=== PATIENT | male | born 1960 | race Caucasian/White ===

== ENCOUNTER → 2016-06-24 | Outpatient (CLI) | payer MEDICARE ==
[~2016-06-24] MED LIST: ALDACTONE 25MG25 MG NG; ASPIRIN 81MG TA81 MG PO; CELEXA40 MG PO; COREG 6.25MG6.25 MG PO; DIGOXIN0.25 MG PO; GABAPENTIN300 MG PO; LIPITOR20 MG PO; LISINOPRIL2.5 MG PO; PLAVIX 75MG TAB75 MG PO; PROTONIX20 MG PO; SOTALOL 80MG TA80 MG PO; TYLENOL W/CODEI1 TA2 PO; WARFARIN SODIUM4 MG PO; ZOFRAN ODT8 MG PO
== END ==
LOC: LAB 14:13
DX: Z79.01 Long term (current) use of anticoagulants (principal); Z95.2 Presence of prosthetic heart valve

== ENCOUNTER → 2016-09-15 | Outpatient (CLI) | payer MEDICARE | LOC: LAB 16:11 | DX: Z95.2 Presence of prosthetic heart valve (principal); Z79.01 Long term (current) use of anticoagulants; Z51.81 Encounter for therapeutic drug level monitoring ==

== ENCOUNTER 2016-11-12 16:39 | Emergency (ER) | payer MEDICARE ==
[~2016-11-12] VITALS: Ht 170.2 cm; Wt 65.8 kg
[2016-11-12] MEDS ORDERED: SUBOXONE 8 MG-21 FIL SL (16:44)
[2016-11-12] MEDS ORDERED: GABAPENTIN 600600 MG PO (16:45)
[2016-11-12 17:03] LABS: LYMPH # 1.7 K/mm3 (0.7-4.5); LYMPH % 23.3 % (10-50)
--- NOTE | 2016-11-12 17:04 | Emergency Room Report ---
See Addendum History of Present Illness Time Seen by [id number] Presenting Problem in Triage Pt arrived:Walked Presenting Problem:PT C/O CHEST PAINS EARLIER THIS AFTERNOON. ADVISES THEY WERE SHARP IN [place] AND WOULD COME AND GO. PT HAD HIS DEFIBRILLATOR REPLACED 2 WEEKS AGO. 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 N Clinical Suspician of Infection? N Mental Status: 1 - Regular (Normal Baseline) Sepsis Risk:Low Sepsis Risk Have you (or family members/close friends) recently traveled outside the [place]? N If Yes, where/when: Have you had exposure to infectious disease within the past month? N TB? Other? Specify: Patient states that he had an episode of moderate sharp type chest pain left center of chest, no radiation, and lightheadedness felt like he might pass out that one lasted about 5 minutes, associated with shortness of breath nausea and sweating. And while mowing the yard today an hour prior to arrival around 4 PM. He states she's also been having these pins and needles type feeling at the site of his pacemaker/defibrillator which was just replaced 2 weeks ago. States it feels like it is shocking him intermittently. Denies any chest pain currently. +history of artificial valve. Followed by Trever VALLECILLO at [facility]. She hasn't had a stress test or angiogram over a year ALLERGIES Coded Allergies: venlafaxine (NA-HALLUCINATIONS 10/26/15) Home Medications Reported Medications SOTALOL HCL (Sotalol) 80 MG PO BID Pantoprazole Sodium (Protonix 20MG TAB) 20 MG PO BID ASPIRIN (Aspirin) 81 MG PO DAILY DIGOXIN (Digox) 0.25 MG PO DAILY Spironolactone (Aldactone) 25 MG NG DAILY Carvedilol (Coreg 6.25MG) 6.25 MG PO DAILY CITALOPRAM HYDROBROMIDE (Citalopram HBr) 40 MG PO DAILY BUPRENORPHINE HCL/NALOXONE HCL (Suboxone 8 MG-2 MG Sl Film) 1 SL DAILY #28 Gabapentin (Gabapentin 600MG) 600 MG PO Q8 Warfarin Sodium (Warfarin 4MG) 4 MG PO DAILY History Medical History General CAD? Yes Angina: Yes [place]: Yes Hypertension? Yes Hyperlipidemia? Yes CHF? No DVT? No PE? No COPD? No Asthma? No Anemia? No GERD? No Gastric ulcers? No GI Bleed? No Hernia? Yes Thyroid Problems? No Hypothyroidism? No CVA? No Seizures? No Diabetes? No Renal Insuffiency? No End Stage Renal Disease? No UTI? No Stones? No BPH? No GB Disease: No Nephritic Syndrome? No Asplenia? No Hepatitis? No Sickle Cell Disease? No Arthritis? No Migraines? No MRSA? Yes HIV? No TB? No Anxiety? Yes Depression? Yes Cancer? No More? No Immunization Hx DT/Tetanus Unknown Surgical Hx Previous Surgery?Y PACEMAKER OPEN HEART SURGERY HEART VALVE SURGERY HERNIA SURGERY Family History Family Hx Diabetes Yes Hypertension Yes Cancer Yes Social History Smoking Hx Smoker: Current Every Day Smoker Tobacco: Yes Type Cigarettes Packs/day 1 1/2 - 2 Packs Alcohol Alcohol: No Review of Systems All Other Systems Reviewed and Negative Physical Exam Vital Signs Vital Signs Date Time Temp Pulse Resp B/P Pulse O2 O2 Flow FiO2 Ox Delivery Rate 11/12 1809 98.7 69 18 106/68 95 11/12 1710 98 11/12 1640 98.0 72 16 132/86 98 General Appearance: Nontoxic Head: Normocephalic, without obvious abnormality, atraumatic. Eyes: conjunctiva/corneas clear ENT: Mucous membranes moist. Neck: No jugular venous distention. Cardiac: regular rate and rhythm, positive artificial valve click Lungs: Clear to auscultation bilaterally Abdomen: Nontender, Nondistended, positive bowel sounds, no rebound : No CVA tenderness Extremities: no edema Musculoskeletal: No chest wall tenderness No Homans sign No calf tenderness No swelling in legs Skin: No rashes or lesions to exposed skin. Neurologic: Alert. No gross focal deficits Psychiatric: Normal affect (Dave VALLECILLO, Timo) General Appearance normal appearance Respiratory Status No: respiratory distress. Cardiovascular normal exam Neurologic alert Medical Decision Making LABS/Meds/Orders Pt receiving controlled substance in ED? No Comment cxr said likely normal per radiogist but possible infiltrate, clinically, wbc ok , diff just elevated monocytes, do not think pneumonia. 730pm call out to cardiology, they desire [facility] transfer Results/Orders Laboratory Tests 11/12/16 1645: B-Natriuretic Peptide 538 H 11/12/16 1645: Sodium 137, Potassium 3.7, Chloride 101, Carbon Dioxide 29, BUN 6 L, Creatinine 1.2, Estimated Creat Clear 63, Estimated GFR (MDRD) 62, Glucose 95, Calcium 8.8, Total Bilirubin 0.3, AST 17, ALT 14, Alkaline Phosphatase 68, Creatine Kinase 97 , CK-MB (CK-2) Rel Index 0.5, CK and CKMB Interp < 0.5, Troponin I 0.02, Total Protein 7.3, Albumin 3.7, Globulin 3.6 H, Albumin/Globulin Ratio 1.0 L, PT 33.7 H, INR 3.08 H, APTT 42.1 H, WBC 7.1, RBC 4.36 L, Hgb 13.6 L, Hct 41.8 L, MCV 96.0, RDW 13.7, Plt Count 252, MPV 8.0, Gran % 65.0, Gran # 4.6, Lymphocytes % 23.3, Monocytes % 10.0 H, Eosinophils % 1.2, Basophils % 0.5, Lymphocytes # 1.7, Monocytes # 0.7, Eosinophils # 0.1, Basophils # 0.0, PUBS MCHC 32.6, MCH 31.3 H, Digoxin 0.88 L Current Medication Orders Sig/Lily Start time Last Medication Dose Route Stop Time Status Admin Aspirin 324 MG ONCE ONE 11/12 1715 CAN PO 11/12 171 Nitroglycerin 0.4 MG [id number] PRN 11/12 1715 CAN SL 11/12 2305 Sodium Chloride 10 ML PRN PRN 11/12 1700 AC IV 11/13 1646 Orders Procedure Date/time Status PULSE OXIMETRY REQUEST 11/12 170 Active OXYGEN PER NURSE 11/12 170 Active SALES REPRESENTATIVE ELECTRIC SERVICE 11/12 170 Active BRAIN NATRIURETIC PEPTIDE 11/12 170 Complete DIGOXIN 11/12 165 Complete ELECTROCARDIOGRAM REQUEST 11/12 164 Active IV SALINE LOCK 11/12 164 Active PARTIAL THROMBOPLASTIN TIME 11/12 164 Complete PROTHROMBIN TIME 11/12 164 Complete CBC WITH AUTO DIFF 11/12 164 Complete CARDIAC ENZYMES 11/12 164 Complete CHEM 12 PROFILE 11/12 1645 Complete CM/EKG CM/pit hand Rhythm Normal Sinus Rhythm Rate 70 Ectopy No Comments right Bundle-branch block, normal axis nonspecific electrocardiogram Departure Departure Time of Disposition 1929 Disposition DC/XFER from ER to [facility] Clinical Impression Primary Impression: Chest pain Qualifiers: Chest pain type: unspecified Qualified Code: R07.9 - Chest pain, unspecified Secondary Impressions: Palpitation Condition STABLE Referrals GERMAINE HALEY APRN (Family) ED Critical Care Critical Care No at 1935
--- NOTE | 2016-11-12 17:04 | Emergency Room Report ---
See Addendum History of Present Illness Time Seen by [id number] Presenting Problem in Triage Pt arrived:Walked Presenting Problem:PT C/O CHEST PAINS EARLIER THIS AFTERNOON. ADVISES THEY WERE SHARP IN [place] AND WOULD COME AND GO. PT HAD HIS DEFIBRILLATOR REPLACED 2 WEEKS AGO. 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 N Clinical Suspician of Infection? N Mental Status: 1 - Regular (Normal Baseline) Sepsis Risk:Low Sepsis Risk Have you (or family members/close friends) recently traveled outside the [place]? N If Yes, where/when: Have you had exposure to infectious disease within the past month? N TB? Other? Specify: Patient states that he had an episode of moderate sharp type chest pain left center of chest, no radiation, and lightheadedness felt like he might pass out that one lasted about 5 minutes, associated with shortness of breath nausea and sweating. And while mowing the yard today an hour prior to arrival around 4 PM. He states she's also been having these pins and needles type feeling at the site of his pacemaker/defibrillator which was just replaced 2 weeks ago. States it feels like it is shocking him intermittently. Denies any chest pain currently. +history of artificial valve. Followed by Trever VALLECILLO at [facility]. She hasn't had a stress test or angiogram over a year ALLERGIES Coded Allergies: venlafaxine (NA-HALLUCINATIONS 10/26/15) Home Medications Reported Medications SOTALOL HCL (Sotalol) 80 MG PO BID Pantoprazole Sodium (Protonix 20MG TAB) 20 MG PO BID ASPIRIN (Aspirin) 81 MG PO DAILY DIGOXIN (Digox) 0.25 MG PO DAILY Spironolactone (Aldactone) 25 MG NG DAILY Carvedilol (Coreg 6.25MG) 6.25 MG PO DAILY CITALOPRAM HYDROBROMIDE (Citalopram HBr) 40 MG PO DAILY BUPRENORPHINE HCL/NALOXONE HCL (Suboxone 8 MG-2 MG Sl Film) 1 SL DAILY #28 Gabapentin (Gabapentin 600MG) 600 MG PO Q8 Warfarin Sodium (Warfarin 4MG) 4 MG PO DAILY History Medical History General CAD? Yes Angina: Yes [place]: Yes Hypertension? Yes Hyperlipidemia? Yes CHF? No DVT? No PE? No COPD? No Asthma? No Anemia? No GERD? No Gastric ulcers? No GI Bleed? No Hernia? Yes Thyroid Problems? No Hypothyroidism? No CVA? No Seizures? No Diabetes? No Renal Insuffiency? No End Stage Renal Disease? No UTI? No Stones? No BPH? No GB Disease: No Nephritic Syndrome? No Asplenia? No Hepatitis? No Sickle Cell Disease? No Arthritis? No Migraines? No MRSA? Yes HIV? No TB? No Anxiety? Yes Depression? Yes Cancer? No More? No Immunization Hx DT/Tetanus Unknown Surgical Hx Previous Surgery?Y PACEMAKER OPEN HEART SURGERY HEART VALVE SURGERY HERNIA SURGERY Family History Family Hx Diabetes Yes Hypertension Yes Cancer Yes Social History Smoking Hx Smoker: Current Every Day Smoker Tobacco: Yes Type Cigarettes Packs/day 1 1/2 - 2 Packs Alcohol Alcohol: No Review of Systems All Other Systems Reviewed and Negative Physical Exam Vital Signs Vital Signs Date Time Temp Pulse Resp B/P Pulse O2 O2 Flow FiO2 Ox Delivery Rate 11/12 1809 98.7 69 18 106/68 95 11/12 1710 98 11/12 1640 98.0 72 16 132/86 98 General Appearance: Nontoxic Head: Normocephalic, without obvious abnormality, atraumatic. Eyes: conjunctiva/corneas clear ENT: Mucous membranes moist. Neck: No jugular venous distention. Cardiac: regular rate and rhythm, positive artificial valve click Lungs: Clear to auscultation bilaterally Abdomen: Nontender, Nondistended, positive bowel sounds, no rebound : No CVA tenderness Extremities: no edema Musculoskeletal: No chest wall tenderness No Homans sign No calf tenderness No swelling in legs Skin: No rashes or lesions to exposed skin. Neurologic: Alert. No gross focal deficits Psychiatric: Normal affect (Dave VALLECILLO, Timo) General Appearance normal appearance Respiratory Status No: respiratory distress. Cardiovascular normal exam Neurologic alert Medical Decision Making LABS/Meds/Orders Pt receiving controlled substance in ED? No Comment cxr said likely normal per radiogist but possible infiltrate, clinically, wbc ok , diff just elevated monocytes, do not think pneumonia. 730pm call out to cardiology, they desire [facility] transfer Results/Orders Laboratory Tests 11/12/16 1645: B-Natriuretic Peptide 538 H 11/12/16 1645: Sodium 137, Potassium 3.7, Chloride 101, Carbon Dioxide 29, BUN 6 L, Creatinine 1.2, Estimated Creat Clear 63, Estimated GFR (MDRD) 62, Glucose 95, Calcium 8.8, Total Bilirubin 0.3, AST 17, ALT 14, Alkaline Phosphatase 68, Creatine Kinase 97 , CK-MB (CK-2) Rel Index 0.5, CK and CKMB Interp < 0.5, Troponin I 0.02, Total Protein 7.3, Albumin 3.7, Globulin 3.6 H, Albumin/Globulin Ratio 1.0 L, PT 33.7 H, INR 3.08 H, APTT 42.1 H, WBC 7.1, RBC 4.36 L, Hgb 13.6 L, Hct 41.8 L, MCV 96.0, RDW 13.7, Plt Count 252, MPV 8.0, Gran % 65.0, Gran # 4.6, Lymphocytes % 23.3, Monocytes % 10.0 H, Eosinophils % 1.2, Basophils % 0.5, Lymphocytes # 1.7, Monocytes # 0.7, Eosinophils # 0.1, Basophils # 0.0, PUBS MCHC 32.6, MCH 31.3 H, Digoxin 0.88 L Current Medication Orders Sig/Lily Start time Last Medication Dose Route Stop Time Status Admin Aspirin 324 MG ONCE ONE 11/12 1715 CAN PO 11/12 171 Nitroglycerin 0.4 MG [id number] PRN 11/12 1715 CAN SL 11/12 2305 Sodium Chloride 10 ML PRN PRN 11/12 1700 AC IV 11/13 1646 Orders Procedure Date/time Status PULSE OXIMETRY REQUEST 11/12 170 Active OXYGEN PER NURSE 11/12 170 Active TOLL TICKET CLERK 11/12 170 Active BRAIN NATRIURETIC PEPTIDE 11/12 170 Complete DIGOXIN 11/12 165 Complete ELECTROCARDIOGRAM REQUEST 11/12 164 Active IV SALINE LOCK 11/12 164 Active PARTIAL THROMBOPLASTIN TIME 11/12 164 Complete PROTHROMBIN TIME 11/12 164 Complete CBC WITH AUTO DIFF 11/12 164 Complete CARDIAC ENZYMES 11/12 164 Complete CHEM 12 PROFILE 11/12 1645 Complete CM/EKG CM/account services analyst Rhythm Normal Sinus Rhythm Rate 70 Ectopy No Comments right Bundle-branch block, normal axis nonspecific electrocardiogram Departure Departure Time of Disposition 1929 Disposition DC/XFER from ER to [facility] Clinical Impression Primary Impression: Chest pain Qualifiers: Chest pain type: unspecified Qualified Code: R07.9 - Chest pain, unspecified Secondary Impressions: Palpitation Condition STABLE Referrals GERMAINE HALEY APRN (Family) ED Critical Care Critical Care No at 1935
[2016-11-12 17:25] LABS: BUN 6 mg/dL (7-18)
[2016-11-12 17:30] LABS: GFR (ESTIMATED) 62 ML/MIN (>60)
[2016-11-12 17:47] LABS: HEMOGLOBIN 13.6 g/dL (14.1-18.0)
--- NOTE | 2016-11-12 19:11 | RADIOLOGY REPORT PS360 ---
CHEST(2 VIEWS-NOT PORTABLE) COMPARISON: None HISTORY: Pain TECHNIQUE: PA and lateral chest FINDINGS: The lung peñaloza are well expanded. There is a subtle ill-defined opacity in right infrahilar region. This likely is a confluence of overlying vascular shadows and rib shadows but a minimal developing pneumonic infiltrate cannot be entirely excluded. The remainder of the right lung field is clear and the left lung field is clear. There is mild generalized cardio megaly. There is a prosthetic aortic valve noted along with sternal wire sutures. There is a left-sided cardiac pacemaker with dual chamber electrodes both in good position. IMPRESSION: Questionable right perihilar and right lower lobe bronchopneumonia versus confluence of vascular and rib shadows
[2016-11-12 20:45] VITALS: BP 131/87
--- OUTSIDE RECORDS SUMMARY | 2016-11-20 15:40 | External Medical Summary Rpt ---
Author Author [facility] Organization [facility] Address Unknown Phone Unavailable Care Team Providers Care Meeting Coordinator Name Role Phone AARON FRENCH (REF) PCP [phone] Encounter [facility] [id number] Date(s): 10/25/13 - 10/24/15 [facility] [address] [place] [address]- [phone] Discharge Disposition: OP Self Care or Home Reason for Visit TRANSPLANT Vital Signs No data available for this section Problem List No data available for this section Allergies, Adverse Reactions, Alerts Substance Reaction Severity Status Effexor hallucinate Moderate Active Medications No data available for this section Results No data available for this section Immunizations No data available for this section Procedures No data available for this section Social History No data available for this section Assessment and Plan No data available for this section Hospital Discharge Instructions No data available for this section
--- OUTSIDE RECORDS SUMMARY | 2016-11-20 15:40 | External Medical Summary Rpt ---
Author Author [facility] Organization [facility] Address Unknown Phone Unavailable Care Team Providers Care Computer Systems Consultant Name Role Phone AARON FRENCH (REF) PCP [phone] Encounter [facility] [id number] Date(s): 10/25/13 - 10/24/15 [facility] [address] [place] [address]- Discharge Disposition: OP Self Care or Home [...]
--- OUTSIDE RECORDS SUMMARY | 2016-11-20 15:45 | External Medical Summary Rpt | CCD ---
Author Author , ARTIS Organization ARTIS Address Unknown Phone [email or web address] Care Team Providers Care Ultra Sound Technician Name Role Phone FABIOLA MAR, FABIOLA MAR Unavailable Unavailable ALLRAN JR JOSE ANTONIO, ALLRAN Unavailable Unavailable JR JOSE ANTONIO JOSLYN SANCHEZ MD, PSC, Unavailable Unavailable JOSLYN SANCHEZ MD, PSC [facility] Unavailable Unavailable [facility], [facility] Unavailable Unavailable [facility], [facility] AND Unavailable Unavailable VASCULAR I, [facility] & Unavailable Unavailable CRITICAL, [facility] BESSON, BESSON Unavailable Unavailable BESSON DAT, BESSON Unavailable Unavailable DAT HORNE ALL, HORNE ALL Unavailable Unavailable [facility] Un[facility], [facility] BUX ANJ, BUX ANJ Unavailable Unavailable SHAYLA ALA, SHAYLA Unavailable Unavailable ALA [facility], Unavailable Unavailable [facility] Unavailable Unavailable PHYS PSC, [facility] Unavailable Unavailable [facility], [facility] MAYTE KATHYA, MAYTE KATHYA Unavailable Unavailable [facility], Unavailable Unavailable [facility] PALENCIA SHEA, PALENCIA SHEA Unavailable Unavailable MARY PAT, MARY PAT Unavailable Unavailable DUFF DULCE, DUFF DULCE Unavailable Unavailable EAVES EDEL, EAVES EDEL Unavailable Unavailable GOLDSTEIN THO, Unavailable Unavailable [facility] THO DIXON MAR, DIXON MAR Unavailable Unavailable JR XIMENA BANKSZ, Unavailable Unavailable JR DARREN ELZ HUSAM RHO, HUSAM Unavailable Unavailable RHO HAAKE BRA, HAAKE BRA Unavailable Unavailable HAAKE BRA, HAAKE BRA Unavailable Unavailable SAAD HERNANDEZ, Unavailable Unavailable SAAD JULIEN, Unavailable Unavailable OSMANI JULIEN [facility] Unavailable Unavailable INC, [facility] Unavailable Unavailable HOSPITAL P, [facility] WOMACK KLEVER, WOMACK Unavailable Unavailable KLEVER HESSELSON AAR, Unavailable Unavailable HESSELSON AAR [facility], Unavailable Unavailable [facility] SABAS TRA, HOLLAN Unavailable Unavailable [facility] FABIANA, Unavailable Unavailable [facility] Unavailable Unavailable SERVICES,, [facility], SUDHA NAN, SUDHA Unavailable Unavailable NAN BERTHA SYE, BERTHA Unavailable Unavailable SYE HERRERA SHE, HERRERA SHE Unavailable Unavailable DAVENPORT FELIPE, DAVENPORT Unavailable Unavailable FELIPE [facility] Unavailable Unavailable [facility], [facility] Unavailable Unavailable AT [facility], [facility] Unavailable Unavailable SPECIALISTS,, [facility], [facility] Unavailable Unavailable DISEASE, [facility] MANOLO NUSRAT, MANOLO Unavailable Unavailable NUSRAT MANOLO NUSRAT, MANOLO Unavailable Unavailable NUSRAT [facility] Unavailable Unavailable [facility]OC[facility]AT, [facility], Unavailable Unavailable [facility] Unavailable Unavailable [facility], [facility] MIEDLER YIN, MIEDLER Unavailable Unavailable YIN MELI NATI, Unavailable Unavailable MELI SILVERIO, ROJAS Unavailable Unavailable [facility] Unavailable Unavailable URGENT [facility]RE[facility], [facility] Unavailable Unavailable EMS, [facility] IVETT TOD, IVETT TOD Unavailable Unavailable RICE N., RICE N. Unavailable Unavailable PLUNKETT IV HEN, Unavailable Unavailable PLUNK[facility] IV HEN SCALF KLEVER, SCALF KLEVER Unavailable Unavailable AVERY ASHTYN, AVERY Unavailable Unavailable ASHTYN CALLES J, CALLES J Unavailable Unavailable CALLES III JAM, Unavailable Unavailable CALLES III JAM OCHOA, OCHOA Unavailable Unavailable OCHOA MAY, OCHOA Unavailable Unavailable MAY SHULTZ ADA, SHULTZ ADA Unavailable Unavailable SPANIER MAR, SPANIER Unavailable Unavailable MAR BRIAN MAR, Unavailable Unavailable BRIAN PAULETTE JULIEN, Unavailable Unavailable DOMENIC MEDE[facility], Unavailable Unavailable [facility], [facility] Unavailable Unavailable Medicine BALBIR IBARRA, Unavailable Unavailable BALBIR AGOSTO CELINA, TRINY Unavailable Unavailable CELINA Purpose Continuity of Care Document - 03-16-2013 through 2016 Problems Code Diagnosis DOS Provider Status I509 HEART 02-01-2016 [place] [facility] UNSPECIFIED SPECIALISTS , K4091 UNILAT 10-26-2015 [facility] HERNIA W/O INC OBST/GANGRE NE RECUR 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 [facility] CURRENT USE [facility] OF INC ANTICOAGULA NTS K4021 BILAT 10-10-2015 [facility] INGUINAL PHYSICIANS HERNIA W/O GROUP OBST OR GANGRENE RECUR K469 UNS 10-10-2015 [facility] ABDOMINAL [facility] HERNIA W/O HOSPITAL P OBSTRUCTION OR GANGRENE R46901 ENCOUNTER 10-10-2015 [facility] FOR OTHER [facility] PREPROCEDUR HOSPITAL P AL EXAMINATION Z5181 ENCOUNTER 10-10-2015 [facility] FOR [facility] THERAPEUTIC HOSPITAL P DRUG LEVEL MONITORING Z952 PRESENCE OF 10-10-2015 [facility] PROSTHETIC [facility] HEART INC VALVE R312 OTHER 10-01-2015 [facility] HEMATURIA [facility] R319 HEMATURIA 10-01-2015 [facility] [place] UNSPECIFIED RADIOLOGY G2581 RESTLESS 09-06-2015 [facility] LEGS [facility] SYNDROME URGENT TREAT L247 IRRITANT 08-21-2015 [facility] CONTACT [facility] DERMATITIS URGENT D/T PLANTS TREAT NO FOOD R3915 URGENCY OF 08-21-2015 [facility] URINATION [facility] URGENT TREAT I5022 CHRONIC 08-02-2015 [facility] 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 , 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 , 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 SPECIALISTS , I472 VENTRICULAR 05-07-2015 [facility] TACHYCARDIA SPECIALISTS , 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 05-04-2015 [facility] 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 I340 NONRHEUMATI 04-13-2015 [facility] C [facility]AL [facility] VALVE INC INSUFFICIEN CY B001 HERPESVIRAL 02-27-2015 [facility] VESICULAR [facility] DERMATITIS URGENT TREAT K5792 DIVERTICULI 02-27-2015 [facility] PART [facility] UNS W/O URGENT PERF/ABSC TREAT W/O BLEED R1032 LEFT LOWER 02-27-2015 [facility] QUADRANT [facility] PAIN URGENT TREAT R110 NAUSEA 02-27-2015 [facility] URGENT TREAT R42 DIZZINESS 02-27-2015 [facility] GIDDINESS URGENT TREAT I050 RHEUMATIC 01-09-2015 [facility]AL [facility] STENOSIS INC I495 SICK SINUS 12-01-2014 [place] SYNDROME [facility] SPECIALISTS , R002 PALPITATION 12-01-2014 [facility] S [facility] , 07813 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 MILNERX, LUMBAR/LUMB , PSC OSACRAL INTERVERTEB RAL DISC 7244 THORACIC/CHERRY 10-31-2014 CAROLANN LUND MD, PSC NEURITIS/RA DICULITIS UNSPEC 4240 MITRAL 10-18-2014 [facility] VALVE [facility] DISORDERS INC V433 HEART VALVE 10-18-2014 [facility] REPLACED [facility] BY OTHER INC MEANS V5861 LONG-TERM 10-18-2014 [facility] (CURRENT) [facility] USE OF INC ANTICOAGULA NTS 45769 PRIMARY 07-15-2014 [facility] LOCALIZED [facility] OSTEOARTHRO INC SIS FOREARM 19521 PAIN IN 07-15-2014 [facility] 15618 PAIN IN 07-15-2014 [facility], [facility]ICAL ANKLE AND IMAGING ASS FOOT 7242 LUMBAGO 07-15-2014 [facility] 7295 PAIN IN 07-15-2014 [facility] TISSUES OF IMAGING ASS LIMB 32547 UNSPECIFIED 07-15-2014 [facility] SITE OF [facility] ANKLE INC SPRAIN AND STRAIN 4271 PAROXYSMAL 04-19-2014 [facility] P TACHYCARDIA 2724 OTHER AND 04-11-2014 [facility] UNSPECIFIED [facility] HYPERLIPIDE ADARSH 4011 ESSENTIAL 04-11-2014 [facility] HYPERTENSIO HEALTH N, [facility] 4019 UNSPECIFIED 04-11-2014 [facility] ESSENTIAL [facility] HYPERTENSIO HOSP N 25262 CORONARY 04-11-2014 [facility] [place] [facility]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 4254 OTHER 04-11-2014 [facility] PRIMARY [facility] CARDIOMYOPA HOSP OTIS 4280 CONGESTIVE 04-11-2014 [facility] FAILURE SPECIALISTS UNSPECIFIED , 59881 CHRONIC 04-11-2014 [facility] SYSTOLIC [facility] FAILURE V5866 LONG-TERM 04-11-2014 [facility] USE OF [facility] ASPIRIN [facility]OSP V5869 LONG-TERM 04-11-2014 [facility] (CURRENT) [facility] USE OF HOSP OTHER MEDICATIONS 4148 OTHER SPEC 03-08-2014 [facility] FORMS [facility] CHRONIC INC ISCHEMIC HEART DISEASE 4242 TRICUSPID 02-20-2014 [facility] VALVE Medicine DISORDERS SPEC NONRHEUMATI C 412 OLD 11-14-2013 [place] MYOCARDIAL [facility] INFARCTION SPECIALISTS , V1749 FAMILY 11-14-2013 [place] HISTORY OF HEART OTHER SPECIALISTS CARDIOVASCU , LAR DISEASES 4010 ESSENTIAL 11-01-2013 [facility] HYPERTENSIO [facility] N, INC MALIGNANT 33123 OTHER 11-01-2013 [facility]AISE AND [facility] FATIGUE INC 6959 UNSPECIFIED 08-23-2013 [facility] ERYTHEMATOU AT [facility] S CONDITION 5110 PLEURISY 08-19-2013 [facility] WITHOUT RADIOLOGY MENTION ASSOC EFFUS/CURRE NT TB 6822 CELLULITIS 08-19-2013 [facility] AND ABSCESS EMERGENCY OF TRUNK PHYS PSC V4502 AUTOMATIC 08-19-2013 [facility] IMPLANTABLE RADIOLOGY CARDIAC ASSOC DEFIBRILLAT OR SITU V5332 FITTING&ADJ 08-19-2013 [facility] AUTO RADIOLOGY IMPLANTABLE ASSOC CARD DEFIBRILLAT OR 4279 UNSPECIFIED 08-16-2013 [facility] CARDIAC RADIOLOGY DYSRHYTHMIA ASSOC V5331 FITTING AND 08-16-2013 [facility] ADJUSTMENT RADIOLOGY OF CARDIAC ASSOC PACEMAKER 38488 OTHER 08-15-2013 [place] SPECIFIED CARDIOLOGY CARDIAC AT [facility] DYSRHYTHMIA S V5881 FITTING AND 08-14-2013 [facility] ADJUSTMENT RADIOLOGY OF ASSOC VASCULAR CATHETER 39449 DIAB W/O 08-13-2013 HOSPITAL COMP TYPE MEDICINE II/UNS NOT SERVICES, STATED UNCNTRL 46293 ACUT TX 08-11-2013 HAAKE BRA INFEROLAT WALL INIT EPIS CARE 57565 COR 08-11-2013 [facility] ATHEROSLERO PULMONARY & UNSPEC CRITICAL TYPE VESSEL [place]/ALEK T 7804 DIZZINESS 08-11-2013 [facility] [place] AND RADI[facility] GIDDINESS 62318 NAUSEA 08-02-2013 [facility] ALONE HEART AND VASCULAR I 4439 UNSPECIFIED 07-12-2013 [facility] PERIPHERAL CARDIOTHORA VASCULAR CIC SURGI DISEASE 92018 ABNORMAL 06-27-2013 [facility] COAGULATION [facility] PROFILE INC 02545 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 65337 ACUTE 05-16-2013 [facility] SYSTOLIC HEART AND HEART VASCULAR I FAILURE 4589 UNSPECIFIED 05-16-2013 [facility] HE[facility] AND HYPOTENSION VASCULAR I 49882 HTN CKD UNS 04-26-2013 [facility] W/CKD [facility] STAGE I HOSP THRU STAGE IV/UNS 77985 UNSPECIFIED 04-26-2013 [facility] SYSTOLIC [facility] HEART [facility] FAILURE 5859 CHRONIC 04-26-2013 [facility] KIDNEY [facility] DISEASE HOSP UNSPECIFIED V5863 LONG-TERM 04-26-2013 [facility] USE OF [facility] ANTIPLATELE HOSP T/ANTITHROM BOTIC 66884 LOSS OF 04-25-2013 [facility] SILVERIO WEIGHT 43724 OTH COMPS 04-25-2013 [facility] SILVERIO DUE OTH CARD DEVICE IMPLANT&GRA FT V0382 NEED PROPH 04-25-2013 [facility] SILVERIO VACCINATION AGAINST STREP PNEUMONE V0481 NEED 04-25-2013 [facility] SILVERIO PROPHYLACTI C VACCINATION &INOCULATIO N FLU 5119 UNSPECIFIED 04-18-2013 [facility] PLEURAL RADIOLOGY EFFUSION ASSOC V5874 AFTERCARE 04-18-2013 [facility] FOLLOW RADIOLOGY SURGERY ASSOC RESPIRATORY SYSTEM NEC 5180 PULMONARY 04-17-2013 [facility] COLLAPSE RADIOLOGY ASSOC V4581 POSTSURGICA 04-17-2013 [facility] L RADIOLOGY AORTOCORONA ASSOC RY BYPASS STATUS 01178 LEUKOCYTOSI 04-14-2013 [facility] S INFECTIOUS UNSPECIFIED DISEASE 72092 ACUT 04-14-2013 [facility] MYOCARD INFECTIOUS INFARCT UNS DISEASE SITE EPIS CARE UNS 4111 INTERMEDIAT 04-14-2013 [facility] E CORONARY HEART SYNDROME SPECIALISTS , 84310 ACUTE 04-14-2013 [facility] RESPIRATORY INFECTIOUS FAILURE DISEASE 5849 ACUTE 04-14-2013 [place] INFECTIOUS FAILURE DISEASE UNSPECIFIED 83630 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 5183 PULMONARY 04-13-2013 [facility] EOSINOPHILI RADIOLOGY A ASSOC 09160 OTHER 04-12-2013 [facility] DISEASES OF RADIOLOGY LUNG NOT ASSOC ELSEWHERE CLASSIFIED V5882 ENCOUNTER 04-12-2013 [facility] FITTING&ADJ RADIOLOGY ASSOC NON-VASCULA R CATHETER NEC 4210 ACUTE AND 04-09-2013 [place] SUBACUTE INFECTIOUS BACTERIAL DISEASE ENDOCARDITI S 03815 FEVER 04-09-2013 [facility] UNSPECIFIED INFECTIOUS DISEASE V5873 AFTERCARE 04-09-2013 [facility] FOLLOWING RADIOLOGY SURGERY ASSOC CIRC SYSTEM NEC V4589 OTHER 04-08-2013 [facility] POSTSURGICA RADIOLOGY L STATUS ASSOC OTHER 486 PNEUMONIA, 04-07-2013 [facility] ORGANISM RADIOLOGY UNSPECIFIED ASSOC 79903 ENDOCARDITI 04-06-2013 [facility] S VALVE RADIOLOGY UNSPECIFIED ASSOC UNSPECIFIED CAUSE 37016 OTHER 04-04-2013 [facility] NONSPECIFIC RADIOLOGY ABNORMAL ASSOC FINDING OF LUNG FIELD 4149 UNSPECIFIED 04-02-2013 [facility] CHRONIC CARDIOTHORA ISCHEMIC CIC SURGI HEART DISEASE 20117 HEMORRHAGE 04-02-2013 [facility] COMPLICATIN CARDIOTHORA G A CIC SURGI PROCEDURE NEC 0389 UNSPECIFIED 03-31-2013 [facility] SEPTICEMIA [facility] 83201 METABOLIC 03-31-2013 [facility] ENCEPHALOPA [facility] THY HOSP 09947 ACUT TX 03-31-2013 [facility] ANTEROLAT PULMONARY & WALL EPIS CRITICAL CARE UNS 34156 ACUT 03-31-2013 [facility] MYOCARD [facility] INFARCT OTH HOSP INF WALL INIT EPIS CARE 95241 ACUTE 03-31-2013 [facility] RESPIRATORY [facility] FAILURE HOSP [facility] TRAUMA & SURGERY 41186 UNSPECIFIED 03-31-2013 [facility] SHOCK PULMONARY & CRITICAL 514 PULMONARY 03-30-2013 [facility] HYPOSTASIS 35301 ING HERNIA 03-28-2013 [place] [facility] OBSTRUCTION /GANGREN BILAT V7283 OTHER 03-28-2013 [facility] SPECIFIED [facility] PRE-OPERATI HOSPITAL VE EXAMINATION 4293 CARDIOMEGAL 03-21-2013 [facility] 47827 ING NERISSA 03-21-2013 [facility], 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 [facility] CO OBST/GANGRE HOS N UNILAT/UNSP EC 7245 UNSPECIFIED 03-21-2013 [facility], BACKACHE [facility]RILL [facility] [place] [facility] 34909 OTHER 03-16-2013 [facility] SILVERIO CHRONIC PAIN Medications Na ND Rx Da Fi Fi Am Da Di Ph RX Ph St me C No te ll ll ou ys ag ar # ys at rm s nt no ma ic us Or Da si cy ia de te s n re d SO 60 01 02 60 30 00 CA Ac TA 50 -2 -1 .0 00 RL ti LO 50 0- 7- 00 00 IS ve L 08 20 20 76 LE 80 00 17 [address] MG UG S TA BL ET DI 49 01 02 30 30 00 CA Ac GO 88 -1 -1 .0 00 RL ti XI 40 6- 0- 00 00 IS ve N 49 20 20 76 LE 25 40 17 [address] MC UG G S TA BL ET EN 00 01 02 60 30 00 CA Ac TR 07 -0 -0 .0 00 RL ti ES 80 6- 3- 00 00 IS ve TO 65 20 20 76 LE 92 17 17 [address] UG MG S -2 6 MG TA BL ET SP 53 01 02 30 30 00 CA Ac IR 74 -0 -0 .0 00 RL ti ON 60 6- 3- 00 00 IS ve OL 51 20 20 76 LE AC 11 17 [address] NE UG S 25 MG TA BL ET PA 65 01 02 60 30 00 CA Ac NT 86 -0 -0 .0 00 RL ti OP 20 6- 3- 00 00 IS ve RA 55 20 20 76 LE ZO 99 17 [address] UG SO S D DR 20 MG TA B GA 68 12 01 12 30 00 CA Ac BA 46 -1 -1 0. 00 RL ti PE 20 5- 3- 00 00 IS ve NT 12 20 20 0 76 LE IN 60 16 [address] 60 UG 0 S MG TA BL ET Immunization Name Date Rout CVX Reac Dose Comm Prov Is Faci e tion ent ider Refu lity Give sed n IIV3 03- 141 JOELLE No JOELLE 7-20 NZO NZO VACC 14 NUSRAT INE SPLI T VIRU NUSRAT S 0.5 ML DOSA GE IM USE PPSV 03- 33 JOELLE No JOELLE 23 7-20 NZO NZO VACC 14 NUSRAT INE 2 YRS OR NUSRAT OLDE R FOR SUBQ /IM USE Results Labs Lab Lab Date Result Refere Interp Status Commen Order Detail nces retati t Range on Troponin I SerPl-mCnc (11-13-2016 05:40) Troponi 0.013 <=0.039 complet n I 017 ng/mL ed SerPl-m 05:40 Cnc Prothrombin time (11-13-2016 05:40) Comment: Therapeutic Ranges for INR:2.0-3.0 (PT 20-30) Comment: 2.5-3.5 (PT 25-34) INR PPP 1.86 complet 017 ed 05:40 Prothro 20.7 9.6-11. complet mbin 017 Seconds 5 ed time 05:40 Comp Metab 1998 Pnl SerPl (11-13-2016 05:40) Comment: National Kidney Foundation Guidelines Comment: Comment: Stage Description GFR Comment: 1 Normal or High 90+ Comment: 2 Mild decrease 60-89 Comment: 3 Moderate decrease 30-59 Comment: 4 Severe decrease 15-29 Comment: 5 Kidney failure <15 Anion 3.0 3.0-11. complet Gap3 017 mmol/L 0 ed SerPl-s 05:40 Cnc BUN/Cre 8.8 7.0-25. complet at 017 0 ed SerPl 05:40 Albumin 1.2 1.5-2.5 complet /Glob 017 g/dL ed SerPl 05:40 Globuli 3.0 complet n Ur 017 gm/dL ed Elph-mC 05:40 nc GFR/BSA 100 >60 complet .pred 017 mL/min/ ed SerPl 05:40 1.73 MDRD-Ar VRat Bilirub 0.2 0.3-1.2 complet 017 mg/dL ed SerPl-m 05:40 Cnc ALP 62 U/L 25-100 complet SerPl-c 017 ed Cnc 05:40 AST 18 U/L 0-33 complet SerPl-c 017 ed Cnc 05:40 ALT 11 U/L 7-40 complet SerPl w 017 ed 05:40 P-5'-P- cCnc Albumin 3.60 3.20-4. complet 017 g/dL 80 ed SerPl-m 05:40 Cnc Prot 6.6 5.7-8.2 complet SerPl-m 017 g/dL ed Cnc 05:40 Calcium 9.0 8.7-10. complet 017 mg/dL 4 ed XXX-sCn 05:40 c CO2 31.0 20.0-31 complet SerPl-s 017 mmol/L .0 ed Cnc 05:40 Chlorid 104 99-109 complet e 017 mmol/L ed SerPl-s 05:40 Cnc Potassi 3.7 3.5-5.5 complet um 017 mmol/L ed Bld-sCn 05:40 c Sodium 138 132-146 complet Bld-sCn 017 mmol/L ed c 05:40 Creat 0.80 0.60-1. complet Bld-mCn 017 mg/dL 30 ed c 05:40 BUN 11-13-2 7 mg/dL 9-23 complet Bld-mCn 017 ed c 05:40 Glucose 11-13- 109 70-100 complet 017 mg/dL ed Bld-mCn 05:40 c CBC W Diff pnl,unspecified Bld (11-13-2016 05:40) Imm 05-2 0.02 0.00-0. complet Granulo 017 10*3/mm 03 ed cytes # 05:40 3 Bld Basophi 10-05-2 0.01 0.00-0. complet ls # 017 10*3/mm 20 ed Bld 05:40 3 Auto Eosinop 10-05-2 0.07 0.00-0. complet hil # 017 10*3/mm 30 ed Bld 05:40 3 Auto Monocyt 10-05-2 0.81 0.00-1. complet es # 017 10*3/mm 00 ed Bld 05:40 3 Auto Lymphoc 10-05-2 1.47 0.60-4. complet ytes # 017 10*3/mm 80 ed Bld 05:40 3 Auto Neutrop 10-05-2 3.29 1.50-8. complet hils # 017 10*3/mm 30 ed Bld 05:40 3 Auto Imm 10-05-2 0.4 % 0.0-0.6 complet Granulo 017 ed cytes/l 05:40 euk NFr Bld Basophi 10-05-2 0.2 % 0.0-1.0 complet ls/leuk 017 ed NFr 05:40 Bld Auto Eosinop 10-05-2 1.2 % 0.0-3.0 complet hil/daniel 017 ed k NFr 05:40 Bld Auto Monocyt 10-05-2 14.3 % 0.0-12. complet es/leuk 017 0 ed NFr 05:40 Bld Auto Lymphoc 10-05-2 25.9 % 24.0-44 complet ytes/le 017 .0 ed uk NFr 05:40 Bld Auto Neutrop 1005-2 58.0 % 41.0-71 complet hils/le 017 .0 ed uk NFr 05:40 Bld Auto Platele 10-05-2 233 150-450 complet t # Bld 017 10*3/mm ed Auto 05:40 3 PMV Bld 1005-2 10.0 fL 6.0-12. complet Auto 017 0 ed 05:40 RDW RBC 10-05-2 47.2 fl 37.0-54 complet Auto 017 .0 ed 05:40 RDW RBC 10-05-2 13.7 % 11.3-14 complet 017 .5 ed Auto-Rt 05:40 o MCHC 10-05-2 33.1 32.0-36 complet RBC 017 g/dL .0 ed Auto-mC 05:40 nc MCH RBC 10-05-2 30.9 pg 27.0-31 complet Qn 017 .0 ed Auto 05:40 MCV RBC 10-05-2 93.3 fL 80.0-99 complet Auto 017 .0 ed 05:40 Hct VFr 10-05-2 40.2 % 38.9-50 complet Bld 017 .9 ed Auto 05:40 Hgb 10-05-2 13.3 13.1-17 complet Bld-mCn 017 g/dL .5 ed c 05:40 RBC # 10-05-2 4.31 4.20-5. complet Bld 017 10*6/mm 76 ed Auto 05:40 3 WBC 10-05-2 5.67 3.50-10 complet nRBC 017 10*3/mm .80 ed cor # 05:40 3 Bld PT BldC (11-07-2016 11:42) Comment: Meter: [id number] Diesel Engineer: [id number] JAMIE SIMS INR PPP 3.6 0.91-1. complet 017 09 ed 11:42 Prothro 42.8 10.0-13 complet mbin 017 seconds .8 ed time 11:42 Hgb A1c Bld (10-29-2016 13:06) Comment: The [place] [employer] recommends maintenance of Hemoglobin A1C at 7.0% or lower. Goals for Hemoglobin A1C reduction may need to be modified if hypoglycemia is a problem. Hgb A1c 5.30 % 4.80-5. complet MFr 017 60 ed Bld 13:06 aPTT PPP (10-29-2016 13:06) Comment: PTT = The equivalent PTT values for the therapeutic range of heparin levels at 0.3 to 0.5 U/ml are 45 to 60 seconds. aPTT 34.7 24.0-31 complet PPP 017 seconds .0 ed 13:06 Prothrombin time (10-29-2016 13:06) Comment: Therapeutic Ranges for INR:2.0-3.0 (PT 20-30) Comment: 2.5-3.5 (PT 25-34) INR PPP 1.78 complet 017 ed 13:06 Prothro 19.7 9.6-11. complet mbin 017 Seconds 5 ed time 13:06 Bas Metab 2000 Pnl SerPl (10-29-2016 12:58) Comment: National Kidney Foundation Guidelines Comment: Comment: Stage Description GFR Comment: 1 Normal or High 90+ Comment: 2 Mild decrease 60-89 Comment: 3 Moderate decrease 30-59 Comment: 4 Severe decrease 15-29 Comment: 5 Kidney failure <15 Anion 2.0 3.0-11. complet Gap3 017 mmol/L 0 ed SerPl-s 12:58 Cnc BUN/Cre 8.8 7.0-25. complet at 017 0 ed SerPl 12:58 GFR/BSA 100 >60 complet .pred 017 mL/min/ ed SerPl 12:58 1.73 MDRD-Ar VRat Calcium 9.3 8.7-10. complet 017 mg/dL 4 ed XXX-sCn 12:58 c CO2 28.0 20.0-31 complet SerPl-s 017 mmol/L .0 ed Cnc 12:58 Chlorid 108 99-109 complet e 017 mmol/L ed SerPl-s 12:58 Cnc Potassi 4.2 3.5-5.5 complet um 017 mmol/L ed Bld-sCn 12:58 c Sodium 138 132-146 complet Bld-sCn 017 mmol/L ed c 12:58 Creat 0.80 0.60-1. complet Bld-mCn 017 mg/dL 30 ed c 12:58 BUN 7 mg/dL 9-23 complet Bld-mCn 017 ed c 12:58 Glucose 92 70-100 complet 017 mg/dL ed Bld-mCn 12:58 c Mg Ionized SerPl-mCnc (10-29-2016 12:58) Magnesi 2.1 1.3-2.7 complet um 017 mg/dL ed SerPl-m 12:58 Cnc CBC (hemogram) Bld Auto (10-29-2016 12:58) PMV Bld 9.7 fL 6.0-12. complet Auto 017 0 ed 12:58 RDW RBC 09-20-2 48.1 fl 37.0-54 complet Auto 017 .0 ed 12:58 RDW RBC 09-20-2 13.9 % 11.3-14 complet 017 .5 ed Auto-Rt 12:58 o MCHC -20-2 33.9 32.0-36 complet RBC 017 g/dL .0 ed Auto-mC 12:58 nc MCH RBC -20-2 31.8 pg 27.0-31 complet Qn 017 .0 ed Auto 12:58 MCV RBC -20-2 93.9 fL 80.0-99 complet Auto 017 .0 ed 12:58 Hct VFr -20-2 44.6 % 38.9-50 complet Bld 017 .9 ed Auto 12:58 Hgb -20-2 15.1 13.1-17 complet Bld-mCn 017 g/dL .5 ed c 12:58 RBC # -20-2 4.75 4.20-5. complet Bld 017 10*6/mm 76 ed Auto 12:58 3 WBC -20-2 9.34 3.50-10 complet nRBC 017 10*3/mm .80 ed cor # 12:58 3 Bld Platele -20-2 245 150-450 complet t # Bld 017 10*3/mm ed Auto 12:58 3 Procedures Procedure DOS Code Location Performer Comment [place] [address] [facility] TION EVAL 6 HEART REMOTE SPECIALIS </30 D CV TS, MNTR SYS [place] 32423 [place] TION EVAL 6 HEART REMOTE SPECIALIS </30 D TS, TECH REVIEW [place] 03408 [place] TION EVAL 6 HEART MAY REMOTE SPECIALIS </30 D TS, TECH REVIEW [place] 42482 [place] TION EVAL 6 HEART MAY REMOTE SPECIALIS </30 D CV TS, MNTR SYS [place] 02560 [place] TION EVAL 6 HEART MAY REMOTE SPECIALIS </30 D CV TS, MNTR SYS [place] 17411 [place] TION EVAL 6 HEART MAY REMOTE SPECIALIS </30 D TS, TECH REVIEW [place] 14056 [facility] TION EVAL 6 HEART MAY REMOTE SPECIALIS </30 D CV TS, MNTR SYS RPR RECRT 14242 OSMANI KEEN INGUINAL 6 [facility] HERNIA INC INC ANY AGE REDUCIBLE [place] 80350 [facility] [place] TION EVAL 6 HEART MAY REMOTE SPECIALIS </30 D TS, TECH REVIEW ECG 40788 OSMANI KEEN ROUTINE 6 [facility] ECG INC INC W/LEAST 12 LDS TRCG ONLY W/O I&R ECG 94775 OSMANI CERVANTES ROUTINE 6 [facility] W/LEAST P 12 LDS I&[place] [address] [facility] [place] ABDOMEN 6 RADIOLOGY RHO W/O CONTRAST MATERIAL [place] [address]42 [facility] TION EVAL 6 HEART MAY REMOTE SPECIALIS </30 D TS, TECH REVIEW [place] 08905 [facility] TION EVAL 6 HEART MAY REMOTE SPECIALIS </30 D CV TS, MNTR SYS BLOOD 12612 [place] COLMENARESOLAS OCCULT 6 [facility] E ACTV TREAT TREAT QUAL FECES 1 DETER [place] [address] [facility] TION EVAL 6 HEART MAY REMOTE SPECIALIS </30 D TS, TECH REVIEW [place] 04657 [facility] TION EVAL 6 HEART MAY REMOTE SPECIALIS </30 D CV TS, MNTR SYS PROTHROMB 89436 OSMANI KEEN IN TIME 6 [facility] INC INC COLLECTIO 62982 OSMANI MERCHANTON N VENOUS 6 [facility] [facility] BLOOD INC INC VENIPUNCT URE COLLECTIO 46230 OSMANIEMIR MERCHANTON N VENOUS 6 [facility] BLOOD INC INC VENIPUNCT URE PROTHROMB 73615 OSMANIEMIR MERCHANTON IN TIME 6 [facility] INC INC INTERROGA 83301 [place] TION EVAL 6 HEART MAY REMOTE SPECIALIS </30 D CV TS, MNTR SYS INTERROGA 14508 [facility] 6 HEART MAY REMOTE SPECIALIS </30 D TS, TECH REVIEW COLLECTIO 05074 OSMANI KEEN N VENOUS 6 [facility] BLOOD INC INC VENIPUNCT URE PROTHROMB 65862 OSMANI KEEN IN TIME 6 [facility] INC INC PROTHROMB 78887 OSMANI KEEN IN TIME 6 [facility] INC INC COLLECTIO 34315 OSMANI KEEN N VENOUS 6 [facility] BLOOD INC INC VENIPUNCT URE INTERROGA 68242 [place] TION EVAL 6 HEART MAY REMOTE SPECIALIS </30 D TS, TECH REVIEW INTERROGA 01021 [place] TION EVAL 6 HEART MAY REMOTE SPECIALIS </30 D CV TS, MNTR SYS PROTHROMB 39527 OSMANI KEEN IN TIME 6 [facility] INC INC COLLECTIO 79415 OSMANI KEEN N VENOUS 6 [facility] BLOOD INC INC VENIPUNCT URE COLLECTIO 77137 OSMANI KEEN N VENOUS 6 [facility] BLOOD INC INC VENIPUNCT URE PROTHROMB 85672 OSMANI KEEN IN TIME 6 [facility] INC INC INTERROGA 28033 [place] TION EVAL 6 HEART MAY REMOTE SPECIALIS </30 D CV TS, MNTR SYS INTERROGA 44034 [place] TION EVAL 6 HEART MAY REMOTE SPECIALIS </30 D TS, TECH REVIEW COLLECTIO 98740 OSMANI KEEN N VENOUS 6 [facility] BLOOD INC INC VENIPUNCT URE PROTHROMB 64874 OSMANI KEEN IN TIME 6 [facility] INC INC PROTHROMB 54443 OSMANI KEEN IN TIME 6 [facility] INC INC COLLECTIO 41206 OSMANI KEEN N VENOUS 6 [facility] BLOOD INC INC VENIPUNCT URE COLLECTIO 62054 OSMANI KEEN N VENOUS 6 [facility] BLOOD INC INC VENIPUNCT URE PROTHROMB 51184 OSMANI KEEN IN TIME 6 [facility] INC INC PROTHROMB 47302 OSMANI KEEN IN TIME 6 [facility] INC INC INTERROGA 50780 [place] TION EVAL 6 HEART MAY REMOTE SPECIALIS </30 D CV TS, MNTR SYS INTERROGA 02773 [place] TION EVAL 6 HEART MAY REMOTE SPECIALIS </30 D TS, TECH REVIEW COLLECTIO 36871 OSMANI KEEN N VENOUS 6 [facility] BLOOD INC INC VENIPUNCT URE COLLECTIO 76753 OSMANI KEEN N VENOUS 6 [facility] BLOOD INC INC VENIPUNCT URE PROTHROMB 49500 OSMANI KEEN IN TIME 6 [facility] INC INC INTERROGA 49543 [place] TION EVAL 6 HEART MAY REMOTE SPECIALIS </30 D CV TS, MNTR SYS INTERROGA 44042 [place] TION EVAL 6 HEART MAY REMOTE SPECIALIS </30 D TS, TECH REVIEW COLLECTIO 82585 OSMANI KEEN N VENOUS 6 [facility] BLOOD INC INC VENIPUNCT URE PROTHROMB 87922 OSMANI KEEN IN TIME 6 [facility] INC INC PROTHROMB 52157 OSMANI KEEN IN TIME 5 [facility] INC INC COLLECTIO 08248 OSMANI KEEN N VENOUS 5 [facility] BLOOD INC INC VENIPUNCT URE COLLECTIO 88447 OSMANI KEEN N VENOUS 5 [facility] BLOOD INC INC VENIPUNCT URE PROTHROMB 02197 OSMANI KEEN IN TIME 5 [facility] INC INC PROTHROMB 32121 OSMANI KE[facility] IN TIME 5 [facility] INC INC COLLECTIO 96798 OSMANI KEEN N VENOUS 5 [facility] BLOOD INC INC VENIPUNCT URE INTERROGA 22356 [place] TION 5 HEART MAY REMOTE SPECIALIS </90 D TS, TECHNICIA N REVIEW INTERROGA 74606 [place] TION EVAL 5 HEART MAY REMOTE SPECIALIS </90 D TS, 1/2/SPECIMEN PROCESSOR LEAD PM PROTHROMB 59973 OSMANI KEEN IN TIME 5 [facility] INC INC COLLECTIO 78006 OSMNAI KEEN N VENOUS 5 [facility] BLOOD INC INC VENIPUNCT URE COLLECTIO 05883 OSMANI KEEN N VENOUS 5 [facility] BLOOD INC INC VENIPUNCT URE PROTHROMB 66054 OSMANI KEEN IN TIME 5 [facility] INC INC PROTHROMB 21420 OSMANI OSMANI IN TIME 5 [facility] INC INC COLLECTIO 78927 OSMANI OSMANI N VENOUS 5 [facility] BLOOD INC INC VENIPUNCT URE COLLECTIO 80372 OSMANI KEEN N VENOUS 5 [facility] BLOOD INC INC VENIPUNCT URE PROTHROMB 05639 OSMANI KEEN IN TIME 5 [facility] INC INC PROTHROMB 46168 OSMANI KEEN IN TIME 5 [facility] INC INC COLLECTIO 31565 OSMANI KEEN N VENOUS 5 [facility] BLOOD INC INC VENIPUNCT URE COLLECTIO 30180 OSMANI KEEN N VENOUS 5 [facility] BLOOD INC INC VENIPUNCT URE PROTHROMB 30454 OSMANI OSMANI IN TIME 5 [facility] INC INC RADEX 49106 [place] [facility] WRIST 5 MEDICAL COMPLETE IMAGING MINIMUM 3 ASS VIEWS RADEX 57589 [place] [facility] SPINE 5 MEDICAL LUMBOSACR IMAGING AL 2/3 ASS VIEWS RADEX 77299 [place] [facility] ANKLE 5 MEDICAL COMPLETE IMAGING MINIMUM 3 ASS VIEWS RADEX 81577 [place] [facility] FOOT 5 MEDICAL COMPLETE IMAGING MINIMUM 3 ASS VIEWS COLLECTIO 04902 OSMANI KEEN N VENOUS 5 [facility] BLOOD INC INC VENIPUNCT URE PROTHROMB 23182 OSMANI KEEN IN TIME 5 [facility] INC INC PROTHROMB 51318 OSMANI KEEN IN TIME 5 [facility] INC INC COLLECTIO 83530 OSMANI KEEN N VENOUS 5 [facility] BLOOD INC INC VENIPUNCT URE PROTHROMB 23993 OSMANI KEEN IN TIME 5 [facility] INC INC COLLECTIO 56691 OSMANI KEEN N VENOUS 5 [facility] BLOOD INC INC VENIPUNCT URE ECG 49379 OSMANI CERVANTES ROUTINE 5 [facility] W/LEAST P 12 LDS I&R ONLY ECG 17423 OSMANI KEEN ROUTINE 5 [facility] ECG INC INC W/LEAST 12 LDS TRCG ONLY W/O I&[place] [address] [facility] THYROID 5 [facility] STIMULATI [facility] HOSP NG HORMONE TSH ECG 38155 [facility] ROUTINE 5 [facility] ECG HOSP HOSP W/LEAST 12 LDS TRCG ONLY W/O I&R DRUG 92836 [facility] SCREEN 5 [facility] QUANTITAT [facility] HOSP [place] DIGOXIN TOTAL PROTHROMB 40775 [facility] IN TIME 5 [facility] [address] [facility] MAGNESIUM 5 [facility] [address] [facility] PROSTATE 5 [facility] SPECIFIC [facility] HOSP ANTIGEN TOTAL ECG 94456 JAMEL [place] ROUTINE 5 HEART MAY ECG SPECIALIS W/LEAST TS, 12 LDS I&R ONLY BLOOD 47280 [facility] COUNT 5 [facility] COMPLETE [facility]OS[facility] HOSP AUTOMATED NATRIURET 32442 [facility] IC 5 [facility] PEPTIDE HOS[facility] HOSP LIPID 03450 [facility] PANEL 5 [facility]OS[facility] BASIC 87781 [facility] METABOLIC 5 [facility] PANEL [facility]OSP HOSP CALCIUM TOTAL URNLS DIP 85910 [facility] 5 [facility] STICK/TAB HOSP HOSP LET RGNT AUTO W/O MICROSCOP Y COLLECTIO 79056 OSMANI OSMANI N VENOUS 5 [facility] BLOOD INC INC VENIPUNCT URE BASIC 97612 OSMNAI KEEN METABOLIC 5 [facility] PANEL INC INC CALCIUM TOTAL PROTHROMB 65582 OSMANI KEEN IN TIME 5 [facility] INC INC ECHO 56788 REGINALDO TORRES TTHRC R-T 5 Medicine APR 2D W/WOM-MOD E COMPL SPEC&COLR D COLLECTIO 81145 OSMANI KEEN N VENOUS 4 [facility] BLOOD INC INC VENIPUNCT URE PROTHROMB 31802 OSMANI KEEN IN TIME 4 [facility] INC INC PROTHROMB 52564 OSMANI KEEN IN TIME 4 [facility] INC INC BASIC 26334 OSMANI KEEN METABOLIC 4 [facility] PANEL INC INC CALCIUM TOTAL PROTHROMB 75144 OSMANI KEEN IN TIME 4 [facility] INC INC INTERROG 61151 J[place] EVAL F2F 4 HEART MAY 1/DUAL/ML SPECIALIS T LEADS TS, IMPLTBL DFB PROTHROMB 82355 OSMANI KEEN IN TIME 4 [facility] INC INC BILIRUBIN 37544 OSMANI KEEN DIRECT 4 [facility] [place] [address] OSMANI KEEN THYROID 4 [facility] STIMULATI [place] [address] OSMANI KEEN FREE 4 [facility] THYROXINE INC INC PROTHROMB 48925 OSMANI KEEN IN TIME 4 [facility] INC INC HEMOGLOBI 42709 OSMANIEMIR KEEN N 4 [facility] GLYCOSYLA INC INC PAUL A1C LIPID 31602 OSMANI OSMANI PANEL 4 [facility] INC INC BLOOD 36213 OSMANI KEEN COUNT 4 [facility] COMPLETE INC INC AUTO&AUTO DIFRNTL WBC COMPREHEN 21237 OSMANIEMIR KEEN SIVE 4 [facility] METABOLIC INC INC PANEL NATRIURET 60096 [facility] IC 4 [facility] PEPTIDE [facility]OSP HOSP BASIC 75481 [facility] METABOLIC 4 B[facility] PANEL HOSP HOSP CALCIUM TOTAL DRUG 84488 [facility] SCREEN 4 [facility] QUANTITAT HOSP HOSP [place] DIGOXIN TOTAL PULMONARY 93515 [facility] STRESS 4 [facility] TESTING HOSP HOSP SIMPLE PROTHROMB 04542 [facility] IN TIME 4 [facility] HOSP PROTHROMB 78751 OSMANIEMIR MERCHANTON IN TIME 4 [facility] INC INC PROTHROMB 49955 OSMANI KEEN IN TIME 4 [facility] INC INC PROTHROMB 65161 [facility] IN TIME 4 [facility]OSP BASIC 42327 [facility] METABOLIC 4 B[facility] PANEL HOSP HOSP CALCIUM TOTAL NATRIURET 35370 [facility] IC 4 [facility] PEPTIDE [facility]OSP HOSP PROTHROMB 67470 OSMANIEMIR MERCHANTON IN TIME 4 [facility] INC INC [facility] 43461 [place] [facility] DISCHARGE 4 AAR DAY CARDIOLOG MANAGEMEN Y AT CENT T 30 MIN/< RADIOLOGI 35416 [facility] EXAM 4 RADIOLOGY FELIPE CHEST 2 ASSOC VIEWS FRONTAL&L [facility] [address] [facility] DISCHARGE 4 HEART MAY DAY SPECIALIS MANAGEMEN TS, T 30 MIN/< SBSQ 63215 [place] [address] HEART MAY CARE/DAY SPECIALIS 25 TS, MINUTES ECG [address] [facility] ROUTINE 4 HEART [facility] ECG SPECIALIS W/LEAST TS, 12 LDS I&R ONLY SBSQ 78304 [place] [address] HEART MAY CARE/DAY SPECIALIS 25 TS, MINUTES RADIOLOGI 14600 [facility] EXAM 4 RADIOLOGY CHEST 2 ASSOC VIEWS FRONTAL&L ATERAL EPHYS 87849 JAMEL BRIDGES EVAL PACG 4 AAR CVDFB CARDIOLOG LDS Y AT CENT W/TSTG OF PULSE GEN SBSQ 56392 [place] [address] HEART MAY CARE/DAY SPECIALIS 25 TS, MINUTES INSJ/RPLC 38036 JAMEL BRIDGES MT PERM 4 AAR DFB CARDIOLOG W/TRNSVNS Y AT CENT LDS 1/DUAL CHMBR SBSQ 37720 [facility] 4 ORTH FABIANA CARE/DAY CARDIOLOG 25 Y AT CENT MINUTES RADIOLOGI 95727 [facility] C 4 RADIOLOGY III JAM EXAMINATI ASSOC ON CHEST SINGLE VIEW FRONTAL SBSQ 41675 [facility] 4 ORTH FABIANA CARE/DAY CARDIOLOG 25 Y AT CENT MINUTES SBSQ 88876 [facility] 4 MEDICINE CARE/DAY SERVICES, 15 MIN[address] ECG [address] [facility] ROUTINE 4 HEART MAY ECG SPECIALIS W/LEAST TS, 12 LDS I&R ONLY SBSQ 86659 [facility] 4 ORTH FABIANA CARE/DAY CARDIOLOG 25 Y AT CENT MINUTES ECG 94836 [facility] R[facility] 4 ECG W/LEAST 12 LDS I&R ONLY INITIAL 59590 [facility] 4 HEART MAY CARE/DAY SPECIALIS 70 TS, MINUTES CRITICAL 32265 [facility] 4 ILL/INJUR ED PATIENT INIT 30-74 MIN GROUND A0425 [facility] MILEAGE 4 [facility] STAT[facility] EMS EMS MILE SBSQ 40474 [facility] 4 PULMONARY YUR CARE/DAY & 35 CRITICAL MINUTES AMB A0427 [facility] SERVICE 4 [facility] EMERGENCY EMS EMS TRANSPORT LEVEL 1 RADIOLOGI 99395 [facility] [place] [facility] C 4 RADIOLOGY EXAMINATI ON CHEST SINGLE VIEW FRONTAL ECG 39839 [facility] AAR ECG CARDIOLOG W/LEAST Y AT CENT 12 LDS W/I&R PROTHROMB 46756 OSMANI KEEN IN TIME 4 [facility] INC INC NON-INVAS 38620 NIHARIKA MARTIN 4 CARDIOTHO NATI PHYSIOLOG RACIC IC STUDY SURGI EXTREMITY 3 LEVLS [address] [facility] ROUTINE 4 HEART MAY ECG SPECIALIS W/LEAST TS, 12 LDS W/I&R ECHO [address] [facility] TTHRC R-T 4 HEART MAY 2D SPECIALIS W/WOM-MOD TS, E COMPL SPEC&COLR D PROTHROMB 49823 OSMANI KEEN IN TIME 4 [facility] INC INC RADIOLOGI 76071 [facility] MELI Serrano EXAM 4 CARDIOTHO NATI CHEST 2 RACIC VIEWS SURGI FRONTAL&L ATERAL DRUG 12310 [facility] SCREEN 4 [facility] QUANTITAT HOSP HOSP [place] DIGOXIN TOTAL NATRIURET 17549 [facility] IC 4 [facility]IST [facility] PEPTIDE HOSP HOSP BASIC 80761 [facility] METABOLIC 4 [facility] PANEL HOSP HOSP CALCIUM TOTAL TOBACCO 73998 [facility] USE 4 [facility] CESSATION HOSP HOSP INTERMEDI ATE 3-10 MINUTES PROTHROMB 86228 [employer], IN TIME 4 DRILL SHARPENER OPERATOR DRILL SHARPENER OPERATOR [facility] PROTHROMB 99576 [employer], IN TIME 4 DRILL SHARPENER OPERATOR DRILL SHARPENER OPERATOR [facility] TRANSITIO 39498 [facility] 4 HEART AND MANAGE VASCULAR SRVC 14 I DAY DISCHARGE PROTHROMB 02558 [employer], IN TIME 4 DRILL SHARPENER OPERATOR DRILL SHARPENER OPERATOR [facility] DRUG 51784 [facility] SCREEN 4 [facility] QUANTITAT HOSP HOSP [place] DIGOXIN TOTAL NATRIURET 17518 [facility] IC 4 [facility] [place] [address] [facility] MAGNESIUM 4 [facility] HOSP BASIC 78836 [facility] METABOLIC 4 [facility] PANEL HOSP HOSP CALCIUM TOTAL BLOOD 75727 [facility] COUNT 4 [facility] COMPLETE HOSP HOSP AUTOMATED IIV3 17450 MANOLO MANOLO VACCINE 4 NUSRAT NUSRAT SPLIT VIRUS 0.5 ML DOSAGE IM USE PPSV23 42484 MANOLO MANOLO VACCINE 2 4 NUSRAT NUSRAT YRS OR OLDER FOR SUBQ/IM USE PROTHROMB 86654 [facility] INC, MHC INC, IN TIME 4 DRILL SHARPENER OPERATOR DRILL SHARPENER OPERATOR [facility] RADIOLOGI 69884 [facility] 4 RADIOLOGY FELIPE EXAMINATI ASSOC ON CHEST SINGLE VIEW FRONTAL SBSQ 84430 [facility] 4 CARE/DAY INFECTIOU 25 S DISEASE MINUTES SBSQ 57462 [facility] 4 ASHTYN CARE/DAY CARDIOLOG 25 Y AT CENT MINUTES RADIOLOGI 28121 [facility] 4 RADIOLOGY EXAMINATI ASSOC ON CHEST SINGLE VIEW FRONTAL SBSQ 27458 [facility] 4 ASHTYN CARE/DAY CARDIOLOG 25 Y AT [facility] 36150 [facility] 4 HEART MAY DAY SPECIALIS MANAGEMEN TS, T 30 MIN/< SBSQ 82400 [facility] 4 PULMONARY S MALA CARE/DAY & 25 CRITICAL MINUTES SBSQ 53229 [place] [address] HEART MAY CARE/DAY SPECIALIS 35 TS, MINUTES SBSQ 88168 [facility] 4 PULMONARY S MALA CARE/DAY & 25 CRITICAL MINUTES SBSQ 03862 [facility] 4 PULMONARY S MALA CARE/DAY & 25 CRITICAL MINUTES RADIOLOGI 76701 [facility] 4 RADIOLOGY EXAMINATI ASSOC ON CHEST SINGLE VIEW FRONTAL RADIOLOGI 19789 [facility] 4 RADIOLOGY EXAMINATI ASSOC ON CHEST SING[place] FRONTAL SBSQ 00760 [place] [address] HEART MAY CARE/DAY SPECIALIS 25 TS, MINUTES SBSQ 62671 [facility] 4 PULMONARY S MALA CARE/DAY & 35 CRITICAL MINUTES SBSQ 14405 [facility] 4 CARE/DAY INFECTIOU 35 S DISEASE MINUTES SBSQ 76783 [facility] 4 PULMONARY ANAYA CARE/DAY & 35 CRITICAL MINUTES CRITICAL 14430 [facility] 4 YIN ILL/INJUR INFECTIOU ED S DISEASE PATIENT INIT 30-74 MIN SBSQ 89542 [facility] 4 IV HEN CARE/DAY CARDIOLOG 25 Y AT CENT MINUTES RADIOLOGI 18758 [facility] 4 RADIOLOGY FELIPE EXAMINATI ASSOC ON CHEST SINGLE VIEW FRONTAL RADEX 94546 [facility] A[facility]OM[facility] 1 4 RADIOLOGI C ANTEROPOS PROFESSIO TERIOR VIEW RADIOLOGI 66264 [facility] 4 RADIOLOGY FELIPE EXAMINATI ASSOC ON CHEST SINGLE VIEW FRONTAL SBSQ 57026 [facility] 4 IV HEN CARE/DAY CARDIOLOG 25 Y AT CENT MINUTES CRITICAL 60360 [facility] 4 YIN ILL/INJUR INFECTIOU ED S DISEASE PATIENT INIT 30-74 MIN SBSQ 82336 [facility] 4 PULMONARY ANAYA CARE/DAY & 35 CRITICAL MINUTES SBSQ 27480 [facility] 4 PULMONARY ANAYA CARE/DAY & 35 CRITICAL MINUTES CRITICAL 03086 [facility] 4 YIN ILL/INJUR INFECTIOU ED S DISEASE PATIENT INIT 30-74 MIN RADIOLOGI 74841 [facility] 4 RADIOLOGY EXAMINATI ASSOC ON CHEST SINGLE VIEW FRONTAL RADEX 34045 [facility] ABDOMEN 1 4 RADIOLOGY FELIPE ASSOC ANTEROPOS TERIOR VIEW RADIOLOGI 29178 [facility] [facility] 4 RADIOLOGY FELIPE EXAMINATI ASSOC ON CHEST SINGLE VIEW FRONTAL CRITICAL 76106 [facility] 4 ILL/INJUR INFECTIOU ED S DISEASE PATIENT INIT 30-74 MIN SBSQ 66138 [facility] 4 PULMONARY ANAYA CARE/DAY & 35 CRITICAL MINUTES SBSQ 37198 [facility] 4 HEART MAY CARE/DAY SPECIALIS 25 TS, MINUTES SBSQ 13948 [facility] 4 PULMONARY ANAYA CARE/DAY & 35 CRITICAL MINUTES CRITICAL 86575 [facility] 4 ILL/INJUR INFECTIOU ED S DISEASE PATIENT INIT 30-74 MIN RADIOLOGI 93766 [facility] 4 RADIOLOGY EXAMINATI ASSOC ON CHEST SINGLE VIEW FRONTAL RADIOLOGI 95566 [facility] 4 RADIOLOGY EXAMINATI ASSOC ON CHEST SINGLE VIEW FRONTAL SBSQ 55762 [facility] 4 HEART MAY CARE/DAY SPECIALIS 35 TS, MINUTES ([place])CO 36[address] [facility] 4 BUDDHIST BUD[facility]IST BYPASS OF HOSP HOSP ONE CORONARY ARTERY OPEN & 3523 [facility] 4 BUDDHIST BUDDHIST REPLACEMN HOSP HOSP T MITRL VALVE W/TISSUE GRAFT SBSQ 20446 [facility] 4 CARE/DAY INFECTIOU 25 S DISEASE MINUTES SBSQ 20521 [facility] 4 CARE/DAY INFECTIOU 25 S DISEASE MINUTES SBSQ 31983 [facility] 4 Y THO CARE/DAY ASSOCIATE 15 S OF DAI MINUTES SBSQ 38540 [facility] 4 HEART [facility] CARE/DAY SPECIALIS 35 TS, MINUTES RADIOLOGI 85569 [facility] 4 RADIOLOGY EXAMINATI ASSOC ON CHEST SINGLE VIEW FRONTAL RADIOLOGI 87898 [facility]OLOGY [facility]AMINATI ASSOC ON CHEST SINGLE VIEW FRONTAL SBSQ 64203 [facility] 4 PULMONARY MAT CARE/DAY & 35 CRITICAL MINUTES ECG 54721 [facility] 4 HEART [facility] ECG SPECIALIS W/LEAST TS, 12 LDS I&R ONLY SBSQ 00944 [facility] 4 CARE/DAY INFECTIOU 25 S DISEASE MINUTES SBSQ 70580 [facility] 4 Y SYE CARE/DAY ASSOCIATE 25 S OF DAI MINUTES CRITICAL 71078 [facility] 4 PULMONARY NUSRAT ILL/INJUR & ED CRITICAL PATIENT INIT 30-74 MIN REPLACEME 61506 [facility] NT MITRAL 4 CARDIOTHO NATI VALVE RACIC W/CARDIOP SURGI ULMONARY BYP NDSC SURG 92611 [facility] 4 CARDIOTHO NATI W/VIDEO-A RACIC SSISTED SURGI HARVEST VEIN CABG CORONARY 65951 [facility] ARTERY 4 CARDIOTHO NATI BYPASS 1 RACIC CORONARY SURGI VENOUS GRAFT ARTL 97225 [facility] CATHJ/CAN 4 CARDIOTHO NATI NULJ RACIC MNTR/RENNER SURGI SFUSION SPX PRQ ECG [address] [facility] [facility] ROUTINE 4 HEART MAY ECG SPECIALIS W/LEAST TS, 12 LDS I&R ONLY SBSQ 21554 [facility] 4 HEART MAY CARE/DAY SPECIALIS 35 TS, [place] [address] [facility] PAT SURG 4 MARSHA & PATHOLOGY DUBILIER GROSS&YIN ROSCOPIC EXAM ANES HRT 54236 [facility] PERICRD 4 [facility] SAC&GRT ANESTHESI VSLS A W/RETAIL ASSISTANT OXTJ >1MO PO DOPPLER 83361 [facility] ECHOCARD 4 [facility] PULSE ANESTHESI WAVE A W/SPECTRA L DISPLAY RADIOLOGI 80613 [facility] 4 RADIOLOGY EXAMINATI ASSOC ON CHEST SINGLE VIEW FRONTAL INSERTION 00596 [facility] FLOW 4 [facility] DIRECTED ANESTHESI CATHETER A FOR MONITORIN G ECHO 57827 [facility] TRANSESOP 4 [facility] HAG R-T ANESTHESI 2D W/PRB A IMG ACQUISJ I&R DOP 13304 [facility] ECHOCARD 4 [facility] COLOR ANESTHESI FLOW A VELOCITY MAPPING RPR BLOOD 71440 [facility] VESSEL 4 CARDIOTHO NATI DIRECT RACIC LOWER SURGI EXTREMITY RADIOLOGI 21937 [facility] 4 RADIOLOGY EXAMINATI ASSOC ON CHEST SINGLE VIEW FRONTAL SBSQ 52682 [facility] 4 HEART MAY CARE/DAY SPECIALIS 35 TS, MINUTES ECG [address] [facility] [facility] ROUTINE 4 HEART MAY ECG SPECIALIS W/LEAST TS, 12 LDS I&R ONLY INITIAL 61994 [facility] 4 Y SYE CARE/DAY ASSOCIATE 70 S OF DAI MINUTES SBSQ 50575 [facility] 4 CARE/DAY INFECTIOU 25 S DISEASE MINUTES ARTL 83752 [facility] AGOSTO CATHJ/CAN 4 PULMONARY CELINA NULJ AND MNTR/RENNER CRITIC SFUSION SPX PRQ PRQ 15613 [facility] 4 HEART MAY CORONRY SPECIALIS TOT TS, OCCLUS REVASC TX ONE VSL CRITICAL [address] [facility] 4 ILL/INJUR INFECTIOU ED S DISEASE PATIENT INIT 30-74 MIN COMBINED 3723 [facility] RIGHT&LEF 4 [facility]UD[facility]IST [facility]ART [facility]OSP HOSP CARD CATHETERI ZATION CONT 9672 [facility] INVASIVE 4 [facility]UD[facility]IST [facility] 96 CONSECUTI VE HRS/MORE INSERTION 3768 [facility] PERQ 4 [facility]UD[facility]IST [facility] HOSP HEART ASSIST DEVICE RADIOLOGI 85054 [facility] 4 RADIOLOGY EXAMINATI ASSOC ON CHEST SINGLE VIEW FRONTAL ENDOLUMIN 07125 [facility] 4 HEART MAY CORONARY SPECIALIS IVUS OCT TS, I&R INITIAL VESSEL R & L HRT 89749 [facility] MAY WINJX HRT SPECIALIS ART& L TS, VENTR IMG INSJ PERQ [address] [facility] [facility] VAD 4 HEART MAY W/IMAGING SPECIALIS ARTERY TS, ACCESS ONLY RADIOLOGI 67501 [facility] 4 KLEVER EXAMINATI RADIOLOGY ON CHEST ASSOCIAT SINGLE VIEW FRONTAL ECG 57335 [facility] PALENCIA PALENCIA SHEA ROUTINE 4 MD ECG CONSULTIN W/LEAST G SRV 12 LDS I&R ONLY BLOOD [id number] [facility] COUNT [address] [place] [address] AUTOMATED BASIC 81325 [facility] METABOLIC [address] [place] [address] CALCIUM TOTAL COLLECTIO 88223 [facility] N VENOUS 4 [facility] VENIPUNCT URE ECG 40555 [facility] ROUTINE [address] [place] [address] W/LEAST 12 LDS TRCG ONLY W/O I&[place] [address] [facility], [facility], FREE 4 DRILL SHARPENER OPERATOR DRILL SHARPENER OPERATOR THYROXINE [facility] [place] [address] [facility], [facility], THYROID 4 DRILL SHARPENER OPERATOR DRILL SHARPENER OPERATOR STIMULATI [facility] NG [facility] HOS HORMONE TSH RADIOLOGI 51837 [facility], C EXAM 4 DRILL SHARPENER OPERATOR DRILL SHARPENER OPERATOR CHEST 2 [facility] VIEWS CO HOS CO HOS FRONTAL&L ATERAL RADEX 67881 [facility] SPINE 4 EIDER DAVID LUMBOSACR RADIOLOGY AL ASSOCIAT MINIMUM 4 VIEWS COMPREHEN 99382 [facility], [facility], SIVE 4 DRILL SHARPENER OPERATOR DRILL SHARPENER OPERATOR METABOLIC [facility] PANEL CO HOS CO HOS DRUG SCR [id number] [facility], NOT 4 DRILL SHARPENER OPERATOR DRILL SHARPENER OPERATOR CHROMATOG [facility] RAPHIC; CO HOS CO HOS ANY NUMBER PT ENC URINALYSI 67206 [facility], [facility], S 4 DRILL SHARPENER OPERATOR DRILL SHARPENER OPERATOR QUAL/SEMI [facility] QUANT CO [facility] CO HOS EXCEPT IMMUNOASS AYS BLOOD 59875 [facility], [facility], COUNT 4 DRILL SHARPENER OPERATOR DRILL SHARPENER OPERATOR COMPLETE [facility] AUTO&AUTO CO HOS CO HOS DIFRNTL WBC LIPID 82946 [facility], PANEL 4 DRILL SHARPENER OPERATOR DRILL SHARPENER OPERATOR [facility]OS Encounters Encounter Start End Date Code Location Performer Type Date [facility] O[facility] - 6 6 [facility] T OFFICE 68069 [facility] 6 6 PHYSICIAN T VISIT S GROUP 10 MINUTES [facility]OSP[facility] 6 6 [facility] T OFFICE 07028 [facility] PHYSICIAN T NEW 30 S GROUP MINUTES [facility] 6 6 [facility] T OFFICE 75908 [facility] 6 6 [facility] T VISIT URGENT 15 TREAT MINUTES OFFICE 94933 [facility] 6 6 [facility] T VISIT URGENT 25 TREAT MINUTES OFFICE 86250 [facility] 6 6 [facility] T VISIT URGENT 25 TREAT MINUTES [facility]OSPITAL O[facility] - 6 6 [facility] OFFICE 51693 [facility] 6 6 HEART MAY T VISIT SPECIALIS 15 TS, MINUTES [facility] - 6 6 [facility] H[facility]PITAL OSMANI - 6 6 [facility] - 6 6 [facility] - 6 6 [facility] H[facility]PITAL OSMANI - 6 6 [facility] OFFICE 29065 [place] OUT[facility] 6 6 HEART MAY T VISIT SPECIALIS 25 TS, MINUTES [facility] OSMANI - 6 6 [facility] OSMANI - 6 6 [facility] OSMANI - 6 6 [facility] OSMANI - 6 6 [facility]PITAL OSMANI [facility] 6 6 [facility] OFFICE 96360 [facility] OUTPATI[facility] 6 6 [facility] V[facility]ENT 25 TREAT MINUT[facility] OSMANI - 6 6 [facility] OSMANI - 5 5 [facility] OSMANI - 5 5 [facility]PITAL OSMANI [facility] 5 5 [facility] OFFICE 27663 [facility] MD DANIEL, T VISIT PSC 10 MINUTES [facility]OSP[facility] - 5 5 [facility] H[facility] OSMANI - 5 5 [facility]PAT[facility] HOSP[facility] OSMANI - 5 5 [facility]PAT[facility] HOSPITAL OSMANI - 5 5 [facility] OUTPATIEN [facility] OFFICE 87139 NEIL SANCHEZ ANJ OUTPATIEN 5 5 [facility] 30 MINUTES [facility] OSMANI - 5 5 [facility]PATIEN [facility] HOSPITAL OSMANI [facility] 5 5 [facility]PATI[facility] EMERGENCY 75246 DARREN BANKS, 5 5 [facility] T VISIT [facility]IGH/URGE NT SEVERITY [facility] - 5 5 [facility] EMERGENCY 54556 O[facility] 5 5 [facility] VISIT LOW/MODER SEVERITY [facility]OSPITAL [facility] - 5 5 [facility] H[facility]PITAL OSMANI [facility] 5 5 [facility] OSMANI - 5 5 [facility] OSMANI - 5 5 [facility] - 5 5 [facility] OFFICE 15043 [facility] 5 5 HEALTH T VISIT MEDICAL 25 GROUP MINUTES [facility] OSMANI [facility] 5 5 [facility] OSMANI - 4 4 [facility] H[facility]PITAL OSMANI - 4 4 [facility] OSMANI - 4 4 [facility] OUTPATIEN INC OFFICE 86355 JAMEL [facility] 4 4 HEART MAY T VISIT SPECIALIS 25 TS, [facility] OSMANI - 4 4 [facility] OSMANI - 4 4 [facility] - 4 4 [facility] OSMANI [facility] 4 4 [facility] OSMANI - 4 4 [facility] - 4 4 [facility] T OFFICE 08404 [facility] OUTPATIEN 4 4 HEART AND T VISIT VASCULAR 25 I MINUTES [facility] OSMANI - 4 4 [facility] OUTPATIEN [facility] EMERGENCY 99441 [facility] DEPT 4 4 EMERGENCY MAR VISIT PHYS PSC HIGH SEVERITY& THREAT FUNCJ OFFICE 97595 JAMEL BRIDGES OUTPATIEN 4 4 AAR T VISIT CARDIOLOG 25 Y [facility] OSMANI - 4 4 [facility] OUTPATIEN [facility] OFFICE 81186 JAMEL [place] OUTPATIEN 4 4 HEART MAY T VISIT SPECIALIS 25 TS, MINUTES [facility] OSMANI - 4 4 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 OPERATOR OUTPATIEN [facility] CENTRAL - 4 4 [facility] OUTPATIEN [facility] T OFFICE 54697 MANOLO KATE 4 4 NUSRAT Villa VISIT 15 MINUTES [facility] INC, - 4 4 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
--- OUTSIDE RECORDS SUMMARY | 2016-11-20 15:45 | External Medical Summary Rpt | CCD ---
Author Author , ARTIS Organization ARTIS Address Unknown Phone [email or web address] Care Team Providers Care Dairy Chemist Name Role Phone FABIOLA MAR, FABIOLA MAR Unavailable Unavailable ALLRAN JR JOSE ANTONIO, ALLRAN Unavailable Unavailable JR JOSE ANTONIO JOSLYN SANCHEZ MD, PSC, Unavailable Unavailable JOSLYN SANCHEZ MD, PSC [facility] Unavailable Unavailable [facility], [facility] Unavailable Unavailable MEDICAL GROUP, [facility] Unavailable Unavailable VASCULAR I, [facility] & Unavailable Unavailable CRITICAL, [facility] BESSON, BESSON Unavailable Unavailable BESSON DAT, BESSON Unavailable Unavailable DAT HORNE ALL, HORNE ALL Unavailable Unavailable [facility] Unavailable Unavailable HOSPITAL, [facility] BUX ANJ, BUX ANJ Unavailable Unavailable SHAYLA ALA, SHAYLA Unavailable Unavailable ALA [facility], Un[facility] Unavailable [facility] Unavailable Unavailable PHYS PSC, [...] Unavailable SAAD JULIEN, Unavailable Unavailable OSMANI JULIEN [facility] Unavailable Unavailable INC, [facility] Unavailable Unavailable HOSPITAL P, [facility] P WOMACK KLEVER, WOMACK Unavailable Unavailable KLEVER HESSELSON AAR, Unavailable Unavailable HESSELSON AAR [facility], Unavailable Unavailable [facility] SABAS TRA, HOLLAN Unavailable Unavailable TRA [facility] FABIANA, Unavailable Unavailable [facility] Unavailable Unavailable SERVICES,, [facility], SUDHA NAN, SUDHA Unavailable Unavailable NAN BERTHA SYE, BERTHA Unavailable Unavailable SYE HERRERA SHE, HERRERA SHE Unavailable Unavailable DAVENPORT FELIPE, DAVENPORT Unavailable Unavailable FELIPE [facility] Unavailable Unavailable [facility], [facility] Unavailable Unavailable AT [facility], [facility] Unavailable [facility]available SPECIALISTS,, [facility], [facility] Unavailable Unavailable DISEASE, [facility] MANOLO NUSRAT, MANOLO Unavailable Unavailable NUSRAT MANOLO NUSRAT, MANOLO Unavailable Unavailable NUSRAT [facility] Unavailable Unavailable ASSOCIAT, [facility], Unavailable Unavailable [facility] Unavailable Unavailable [facility], [facility] MIEDLER YIN, MIEDLER Unavailable Unavailable YIN MELI NATI, Unavailable Unavailable MELI SILVERIO, ROJAS Unavailable Unavailable [facility] Unavailable Unavailable URGENT TRE[facility], [facility] Unavailable Unavailable EMS, [facility] IVETT TOD, IVETT TOD Unavailable [...] Diagnosis DOS Provider Status I509 HEART 02-01-2016 [place] [facility] UNSPECIFIED SPECIALISTS , K4091 UNILAT 10-26-2015 [facility]AL [facility] HERNIA W/O INC OBST/GANGRE NE RECUR 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-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 [facility] CURRENT USE [facility] OF INC ANTICOAGULA NTS K4021 BILAT 10-10-2015 [facility] PHYSICIANS HERNIA W/O GROUP OBST OR GANGRENE RECUR K469 UNS 10-10-2015 [facility] ABDOMINAL [facility] HERNIA W/O HOSPITAL P OBSTRUCTION OR GANGRENE [id number] ENCOUNTER 10-10-2015 [facility] FOR OTHER [facility] PREPROCEDUR HOSPITAL P AL EXAMINATION Z5181 ENCOUNTER 10-10-2015 [facility] FOR [facility] THERAPEUTIC HOSPITAL P DRUG LEVEL MONITORING Z952 PRESENCE OF 10-10-2015 [facility] PROSTHETIC [facility] HEART INC VALVE R312 OTHER 10-01-2015 [facility] HEMATURIA [facility] R319 HEMATURIA 10-01-2015 [facility] [place] UNSPECIFIED RADIOLOGY G2581 RESTLESS 09-06-2015 [facility] LEGS [facility] SYNDROME URGENT TREAT L247 IRRITANT 08-21-2015 [facility] CONTACT [facility] DERMATITIS URGENT D/T PLANTS TREAT NO FOOD R3915 URGENCY OF 08-21-2015 [facility] URINATION [facility] URGENT TREAT I5022 CHRONIC 08-02-2015 [place] 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 , FAILURE 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 , 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 SPECIALISTS , I472 VENTRICULAR 05-07-2015 [place] [facility] TACHYCARDIA SPECIALISTS , I348 OTHER 05-04-2015 [facility] 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 I340 NONRHEUMATI 04-13-2015 [facility] C MITRAL [facility] VALVE INC INSUFFICIEN CY B001 HERPESVIRAL 02-27-2015 [facility] VESICULAR [facility] DERMATITIS URGENT TREAT K5792 DIVERTICULI 02-27-2015 [facility] PART [facility] UNS W/O URGENT PERF/ABSC TREAT W/O BLEED R1032 LEFT LOWER 02-27-2015 [facility] QUADRANT [facility] PAIN URGENT TREAT R110 NAUSEA 02-27-2015 [facility] URGENT TREAT R42 DIZZINESS 02-27-2015 [facility] GIDDINESS URGENT TREAT 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 INC I495 SICK SINUS 12-01-2014 [place] [facility] SPECIALISTS , R002 PALPITATION 12-01-2014 [place] S [facility] , 58217 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 MILNERX, LUMBAR/LUMB , PSC OSACRAL INTERVERTEB RAL DISC 7244 THORACIC/CHERRY 10-31-2014 CAROLANN LUND MD, PSC NEURITIS/RA DICULITIS UNSPEC 4240 MITRAL 10-18-2014 [facility] VALVE [facility] DISORDERS INC V433 HEART VALVE 10-18-2014 [facility] REPLACED [facility] BY OTHER INC MEANS V5861 LONG-TERM 10-18-2014 [facility] (CURRENT) [facility] USE OF INC ANTICOAGULA NTS 10326 PRIMARY 07-15-2014 [facility] LOCALIZED [facility] OSTEOARTHRO INC SIS FOREARM 50786 PAIN IN 07-15-2014 [facility] 32727 PAIN IN 07-15-2014 [facility]KLE [facility]ING [facility] FOOT 7242 LUMBAGO 07-15-2014 [facility] 7295 PAIN IN 07-15-2014 [facility] TISSUES OF IMAGING ASS LIMB 90286 UNSPECIFIED 07-15-2014 [facility] SITE OF MEM [facility] ANKLE INC SPRAIN AND STRAIN 4271 PAROXYSMAL 04-19-2014 [facility] P TACHYCARDIA 2724 OTHER AND 04-11-2014 [facility] UNSPECIFIED [facility] HYPERLIPIDE ADARSH 4011 ESSENTIAL 04-11-2014 [facility] HYPERTENSIO HEALTH N, [facility] 4019 UNSPECIFIED 04-11-2014 [facility] ESSENTIAL [facility] HYPERTENSIO HOSP N 43579 CORONARY 04-11-[address] [facility] [place] [facility] [place] [facility]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 4254 OTHER 04-11-2014 [facility] PRIMARY [facility] CARDIOMYOPA [facility]P OTIS 4280 CONGESTIVE 04-11-2014 [place] [facility] FAILURE SPECIALISTS UNSPECIFIED , 57600 CHRONIC 04-11-2014 [facility] SYSTOLIC [facility] FAILURE V5866 LONG-TERM 04-11-2014 [facility] USE OF [facility] V5869 LONG-TERM 04-11-2014 [facility] (CURRENT) [facility] USE OF HOSP OTHER MEDICATIONS 4148 OTHER SPEC 03-08-2014 [facility] FORMS [facility] CHRONIC INC ISCHEMIC HEART DISEASE 4242 TRICUSPID 02-20-2014 [facility] VALVE Medicine DISORDERS SPEC NONRHEUMATI C 412 OLD 11-14-2013 [place] [facility] INFARCTION [facility] , V1749 FAMILY 11-14-2013 [place] HISTORY OF HEART OTHER SPECIALISTS CARDIOVASCU , LAR DISEASES 4010 ESSENTIAL 11-01-2013 [facility] HYPERTENSIO [facility] N, INC MALIGNANT 77908 OTHER 11-01-2013 [facility] MALAISE AND [facility] FATIGUE INC 6959 UNSPECIFIED 08-23-2013 [facility] ERYTHEMATOU AT [facility] S CONDITION 5110 PLEURISY 08-19-2013 [facility] [...] [facility] ADJUSTMENT RADIOLOGY OF CARDIAC ASSOC PACEMAKER 00132 OTHER 08-15-2013 [place] SPECIFIED CARDIOLOGY CARDIAC AT [facility] DYSRHYTHMIA S V5881 FITTING AND 08-14-2013 [facility] ADJUSTMENT RADIOLOGY OF ASSOC VASCULAR CATHETER 91479 DIAB W/O 08-13-2013 HOSPITAL COMP TYPE MEDICINE II/UNS NOT SERVICES, STATED UNCNTRL 33096 ACUT TN 08-11-2013 [facility] INFEROLAT WALL INIT EPIS CARE 98800 COR 08-11-2013 [facility] ATHEROSLERO PULMONARY & UNSPEC CRITICAL TYPE VESSEL [place]/ALEK T 7804 DIZZINESS 08-11-2013 [facility] [place] AND RADIOLOGY GIDDINESS 36243 NAUSEA 08-02-2013 [facility] ALONE HEART AND VASCULAR I 4439 UNSPECIFIED 07-12-2013 [facility] PERIPHERAL CARDIOTHORA VASCULAR CIC SURGI DISEASE 52171 ABNORMAL 06-27-2013 [facility] COAGULATION [facility] PROFILE INC 12644 CORONARY 05-16-2013 [facility] ATHEROSCLER HEART AND OSIS OF VASCULAR I ARTERY BYPASS GRAFT 16255 ACUTE 05-16-2013 [facility] SYSTOLIC HEART AND HEART VASCULAR I FAILURE 4589 UNSPECIFIED 05-16-2013 [facility] [place]ART [place]OTENSION [place]ASCULAR I 29014 HTN CKD UNS 04-26-2013 [facility] W/CKD [facility] STAGE I HOSP THRU STAGE IV/UNS 91205 UNSPECIFIED 04-26-2013 [facility] SYSTOLIC [facility] FAILURE 5859 CHRONIC 04-26-2013 [facility] KIDNEY [facility] DISEASE HOSP UNSPECIFIED V5863 LONG-TERM 04-26-2013 [facility] USE OF [facility] ANTIPLATELE HOSP T/ANTITHROM BOTIC 34361 LOSS OF 04-25-2013 MAN[facility] SILVERIO WEIGHT 79134 OTH COMPS 04-25-2013 MAN[facility]O SILVERIO DUE OTH [...] L RADIOLOGY AORTOCORONA ASSOC RY BYPASS STATUS 57963 LEUKOCYTOSI 04-14-2013 J[facility] S INFECTIOUS UNSPECIFIED DISEASE 52982 ACUT 04-14-2013 J[facility] MYOCARD INFECTIOUS INFARCT UNS DISEASE SITE EPIS CARE UNS 4111 INTERMEDIAT 04-14-2013 [facility] E CORONARY HEART SYNDROME SPECIALISTS , 09604 ACUTE 04-14-2013 [facility] INFECTIOUS FAILURE DISEASE 5849 ACUTE 04-14-2013 [place] KIDNEY INFECTIOUS FAILURE DISEASE UNSPECIFIED 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 45204 OTHER 04-12-2013 [facility] DISEASES OF RADIOLOGY LUNG NOT ASSOC ELSEWHERE CLASSIFIED V5882 ENCOUNTER 04-12-2013 [facility] FITTING&ADJ RADIOLOGY ASSOC NON-VASCULA R CATHETER NEC 4210 ACUTE AND 04-09-2013 [place] SUBACUTE INFECTIOUS BACTERIAL DISEASE ENDOCARDITI S 55277 FEVER 04-09-2013 [facility] UNSPECIFIED INFECTIOUS DISEASE V5873 AFTERCARE 04-09-2013 [facility] FOLLOWING RADIOLOGY SURGERY ASSOC CIRC SYSTEM NEC V4589 OTHER 04-08-2013 [facility] POSTSURGICA RADIOLOGY L STATUS ASSOC OTHER 486 PNEUMONIA, 04-07-2013 [facility] ORGANISM RADIOLOGY UNSPECIFIED ASSOC 16369 ENDOCARDITI 04-06-2013 [facility] S VALVE RADIOLOGY UNSPECIFIED ASSOC UNSPECIFIED CAUSE 53826 OTHER 04-04-2013 [facility] NONSPECIFIC RADIOLOGY ABNORMAL ASSOC FINDING OF LUNG FIELD 4149 UNSPECIFIED 04-02-2013 [facility] CHRONIC CARDIOTHORA ISCHEMIC CIC SURGI HEART DISEASE 94032 HEMORRHAGE 04-02-2013 [facility] COMPLICATIN CARDIOTHORA G A CIC SURGI PROCEDURE NEC 0389 UNSPECIFIED 03-31-2013 [facility] SEPTICEMIA [facility] 17472 METABOLIC 03-31-2013 [facility] ENCEPHALOPA [facility] THY HOSP 81026 ACUT TN 03-31-2013 [facility] ANTEROLAT PULMONARY & WALL EPIS CRITICAL CARE UNS 45504 ACUT 03-31-2013 [facility] MYOCARD [facility] INFARCT OTH HOSP INF WALL INIT EPIS CARE 93121 ACUTE 03-31-2013 [facility] RESPIRATORY [facility] FAILURE HOSP [facility] TRAUMA & SURGERY 14248 UNSPECIFIED 03-31-2013 [facility] SHOCK PULMONARY & CRITICAL 514 PULMONARY 03-30-2013 [facility] HYPOSTASIS 53153 ING HERNIA 03-28-2013 [place] W[facility] OBSTRUCTION /GANGREN BILAT V7283 OTHER 03-28-2013 [place] SPECIFIED [facility] PRE-OPERATI HOSPITAL VE EXAMINATION 4293 CARDIOMEGAL 03-21-2013 [facility] Y [facility] 75006 ING NERISSA 03-21-2013 [facility], W/O MENTION [employer] [facility] CO OBST/GANGRE HOS N UNILAT/UNSP EC 7245 UNSPECIFIED 03-21-2013 [facility], BACKACHE [facility] [place] [place] 04543 OTHER 03-16-2013 [facility] SILVERIO CHRONIC PAIN Medications [...] Bld PT BldC (11-07-2016 11:42) Comment: Meter: [id number] Anesthesiologists' Assistant: [id number] JAMIE SIMS INR PPP 3.6 0.91-1. complet 017 09 ed 11:42 Prothro 42.8 10.0-13 complet mbin 017 seconds .8 ed time 11:42 Hgb A1c Bld (10-29-2016 13:06) Comment: The [place] [employer] recommends maintenance of Hemoglobin A1C [...] Procedure DOS Code Location Performer Comment INTERROGA 09644 [facility] TION EVAL 6 HEART REMOTE SPECIALIS </30 D CV TS, MNTR SYS [place] 76265 [place] [facility] TION EVAL 6 HEART REMOTE SPECIALIS </30 D TS, TECH REVIEW [place] 24219 [place] TION EVAL 6 HEART MAY REMOTE SPECIALIS </30 D TS, TECH REVIEW [place] 54173 [place] TION EVAL 6 HEART MAY REMOTE SPECIALIS </30 D CV TS, MNTR SYS [place] 61825 [place] TION EVAL 6 HEART MAY REMOTE SPECIALIS </30 D CV TS, MNTR SYS [place] 25941 [place] TION EVAL 6 HEART MAY REMOTE SPECIALIS </30 D TS, TECH REVIEW INTERRO[place] 44684 [facility] [place] TION EVAL 6 HEART MAY REMOTE SPECIALIS </30 D CV TS, MNTR SYS RPR RECRT 96624 [facility] KEEN INGUINAL 6 [facility] HERNIA INC INC ANY AGE REDUCIBLE INTERRO[place] 19920 [facility] [place] TION EVAL 6 HEART MAY REMOTE SPECIALIS </30 D TS, TECH REVIEW ECG 85374 [facility] KEEN ROUTINE 6 [facility] ECG INC INC W/LEAST 12 LDS TRCG ONLY W/O I&R ECG 08438 [facility] CERVANTES ROUTINE 6 [facility] W/LEAST P 12 LDS I&[place] [address] [facility] [place] HUSAM ABDOMEN 6 RADIOLOGY RHO W/O CONTRAST MATERIAL INTERROGA 75468 [facility] TION EVAL 6 HEART MAY REMOTE SPECIALIS </30 D TS, TECH REVIEW INTERRO[place] 24705 [facility] TION EVAL 6 HEART MAY REMOTE SPECIALIS </30 D CV TS, MNTR SYS BLOOD 05363 [facility] COLMENARESOLAS OCCULT 6 [facility] URGENT URGENT E ACTV TREAT TREAT QUAL FECES 1 DETER [place] 13223 [facility] TION EVAL 6 HEART MAY REMOTE SPECIALIS </30 D TS, TECH REVIEW INTERROGA 81863 [facility] TION EVAL 6 HEART MAY REMOTE SPECIALIS </30 D CV TS, MNTR SYS PROTHROMB 11285 [facility] KEEN IN TIME 6 MEM [facility]OS[facility] INC INC COLLECTIO 49970 [facility] MERCHANTON N VENOUS 6 MEM HOSP [facility] BLOOD INC INC VENIPUNCT URE COLLECTIO 56412 OSMANIEMIR MERCHANTON N VENOUS 6 MEM H[facility] BLOOD INC INC VENIPUNCT URE PROTHROMB 98019 OSMANIEMIR MERCHANTON IN TIME 6 MEM HOSP [facility] INC INC INTERROGA 09359 [place] [facility] TION EVAL 6 HEART MAY REMOTE SPECIALIS </30 D CV TS, MNTR SYS INTERRO[place] 49381 [facility] TION EVAL 6 HEART MAY REMOTE SPECIALIS </30 D TS, TECH REVIEW COLLECTIO 42868 [facility] KEEN N VENOUS 6 MEM HOS[facility] BLOOD INC INC VENIPUNCT URE PROTHROMB 14263 [facility] KEEN IN TIME 6 MEM HOS[facility] INC INC PROTHROMB 78213 O[facility]ANI KEEN IN TIME 6 MEM H[facility] INC INC COLLECTIO 19362 [facility] KEEN N VENOUS 6 MEM HOS[facility] BLOOD INC INC VENIPUNCT URE INTERROGA 06686 [place] [facility] TION EVAL 6 HEART MAY REMOTE SPECIALIS </30 D TS, TECH REVIEW INTERROGA 16035 [place] [facility] TION EVAL 6 HEART MAY REMOTE SPECIALIS </30 D CV TS, MNTR SYS PROTHROMB 05886 [facility] KEEN IN TIME 6 MEM HOSP [facility] INC INC COLLECTIO 98256 [facility] KEEN N VENOUS 6 MEM H[facility] BLOOD INC INC VENIPUNCT URE COLLECTIO 82991 [facility] KEEN N VENOUS 6 MEM H[facility] BLOOD INC INC VENIPUNCT URE PROTHROMB 04986 OSMANI KEEN IN TIME 6 [facility] INC INC INTERROGA 66809 [place] TION EVAL 6 HEART MAY REMOTE SPECIALIS </30 D CV TS, MNTR SYS [place] 44959 [place] [facility] TION EVAL 6 HEART MAY REMOTE SPECIALIS </30 D TS, TECH REVIEW COLLECTIO 16373 [facility] KEEN N VENOUS 6 MEM HOSP [facility] BLOOD INC INC VENIPUNCT URE PROTHROMB 84673 O[facility] KEEN IN TIME 6 [facility] INC INC PROTHROMB 66202 OSMANI KEEN IN TIME 6 [facility] INC INC COLLECTIO 06240 OSMANI KEEN N VENOUS 6 [facility] BLOOD INC INC VENIPUNCT URE COLLECTIO 67529 O[facility]ANI KEEN N VENOUS 6 [facility] BLOOD INC INC VENIPUNCT URE PROTHROMB 38649 OSMANI KEEN IN TIME 6 MEM [facility] INC INC PROTHROMB 76380 OSMANI KEEN IN TIME 6 MEM [facility] INC INC INTERROGA 26421 [place] [facility] TION EVAL 6 HEART MAY REMOTE SPECIALIS </30 D CV TS, MNTR SYS INTERRO[place] 59298 [place] [facility] TION EVAL 6 HEART MAY REMOTE SPECIALIS </30 D TS, TECH REVIEW COLLECTIO 41226 [facility] KEEN N VENOUS 6 MEM H[facility] BLOOD INC INC VENIPUNCT URE COLLECTIO 36011 O[facility]ANI KEEN N VENOUS 6 MEM H[facility] BLOOD INC INC VENIPUNCT URE PROTHROMB 56966 OSMANI KEEN IN TIME 6 [facility] INC INC INTERROGA 34090 [place] TION EVAL 6 HEART MAY REMOTE SPECIALIS </30 D CV TS, MNTR SYS INTERRO[place] 86452 [place] TION EVAL 6 HEART MAY REMOTE SPECIALIS </30 D TS, TECH REVIEW COLLECTIO 03948 [facility] KEEN N VENOUS 6 MEM H[facility] BLOOD INC INC VENIPUNCT URE PROTHROMB 00475 OSMANI KEEN IN TIME 6 [facility] INC INC PROTHROMB 65138 OSMANI KEEN IN TIME 5 [facility] INC INC COLLECTIO 98316 OSMANI KEEN N VENOUS 5 [facility] BLOOD INC INC VENIPUNCT URE COLLECTIO 48243 O[facility]ANI KEEN N VENOUS 5 [facility] BLOOD INC INC VENIPUNCT URE PROTHROMB 56211 OSMANI KEEN IN TIME 5 [facility] INC INC PROTHROMB 57339 OSMANI KEEN IN TIME 5 [facility] INC INC COLLECTIO 79734 OSMANI KEEN N VENOUS 5 [facility] BLOOD INC INC VENIPUNCT URE INTERROGA 78588 [place] [facility] TION 5 HEART MAY REMOTE SPECIALIS </90 D TS, TECHNICIA N REVIEW INTERROGA 10934 [place] [facility] TION EVAL 5 HEART MAY REMOTE SPECIALIS </90 D TS, 1/2/MANAGER DATABASE LEAD PM PROTHROMB 98135 [facility] KEEN IN TIME 5 [facility] INC INC COLLECTIO 14084 [facility] KEEN N VENOUS 5 MEM H[facility] BLOOD INC INC VENIPUNCT URE COLLECTIO 90757 OSMANI KEEN N VENOUS 5 [facility] BLOOD INC INC VENIPUNCT URE PROTHROMB 40147 OSMANI KEEN IN TIME 5 [facility] INC INC PROTHROMB 75712 OSMANI OSMANI IN TIME 5 [facility] INC INC COLLECTIO 68703 OSMANI OSMANI N VENOUS 5 [facility] BLOOD INC INC VENIPUNCT URE COLLECTIO 46272 OSMANI KEEN N VENOUS 5 [facility] BLOOD INC INC VENIPUNCT URE PROTHROMB 83613 OSMANI KEEN IN TIME 5 [facility] INC INC PROTHROMB 06673 OSMANI KEEN IN TIME 5 [facility] INC INC COLLECTIO 76997 OSMANI KEEN N VENOUS 5 [facility] BLOOD INC INC VENIPUNCT URE COLLECTIO 94293 OSMANI KEEN N VENOUS 5 [facility] BLOOD INC INC VENIPUNCT URE PROTHROMB 03298 OSMANI OSMANI IN TIME 5 [facility] INC INC RADEX 49374 [place] [facility] WRIST 5 MEDICAL COMPLETE IMAGING MINIMUM 3 ASS VIEWS RADEX 84616 [place] [facility] SPINE 5 MEDICAL LUMBOSACR IMAGING AL 2/3 ASS VIEWS RADEX 00986 [place] [facility] ANKLE 5 MEDICAL COMPLETE IMAGING MINIMUM 3 ASS VIEWS RADEX 98944 [place] [facility] FOOT 5 MEDICAL COMPLETE IMAGING MINIMUM 3 ASS VIEWS COLLECTIO 73880 [facility] KEEN N VENOUS 5 [facility] BLOOD INC INC VENIPUNCT URE PROTHROMB 49952 [facility] KEEN IN TIME 5 [facility] INC INC PROTHROMB 32411 OSMANI KEEN IN TIME 5 [facility] INC INC COLLECTIO 60972 O[facility]ANI KEEN N VENOUS 5 [facility] BLOOD INC INC VENIPUNCT URE PROTHROMB 77601 [facility]ANI EKEN IN TIME 5 [facility] INC INC COLLECTIO 15443 OSMANI KEEN N VENOUS 5 [facility] BLOOD INC INC VENIPUNCT URE ECG 87967 OSMANI CERVANTES ROUTINE 5 [facility] W/LEAST P 12 LDS I&R ONLY ECG 91744 OSMANI KEEN ROUTINE 5 [facility] ECG INC INC W/LEAST 12 LDS TRCG ONLY W/O I&[place] [address] [facility] THYROID 5 [facility] STIMULATI [facility] NG HORMONE TSH ECG 69416 [facility] ROUTINE 5 [facility] ECG HOSP HOSP W/LEAST 12 LDS TRCG ONLY W/O I&R DRUG 28403 [facility] SCREEN 5 [facility] QUANTITAT [facility] HOSP [place]ON[place] DIGOXIN TOTAL PROTHROMB 25959 [facility] IN TIME 5 [facility] [address] [facility] MAGNESIUM 5 [facility] [address] [facility] PROSTATE 5 [facility] SPECIFIC [facility] HOSP ANTIGEN TOTAL ECG 69952 JAMEL OCHOA ROUTINE 5 HEART MAY ECG SPECIALIS W/LEAST TS, 12 LDS I&R ONLY BLOOD 10722 [facility] COUNT 5 [facility] COMPLETE HOSP HOSP AUTOMATED NATRIURET 26346 [facility] IC 5 [facility] PEPTIDE HOSP HOSP LIPID 50263 [facility] PANEL 5 [facility] BASIC 59016 [facility] METABOLIC 5 [facility] PANEL HOSP HOSP CALCIUM TOTAL URNLS DIP 76008 [facility] CENTRAL 5 [facility] STICK/TAB HOSP HOSP LET RGNT AUTO W/O MICROSCOP Y COLLECTIO 40905 OSMANI OSMANI N VENOUS 5 [facility] BLOOD INC INC VENIPUNCT URE BASIC 79084 OSMANI KEEN METABOLIC 5 [facility] PANEL INC INC CALCIUM TOTAL PROTHROMB 44021 OSMANI KEEN IN TIME 5 [facility] INC INC ECHO 29620 REGINALDO TORRES TTHRC R-T 5 Medicine APR 2D W/WOM-MOD E COMPL SPEC&COLR D COLLECTIO 66306 OSMANI KEEN N VENOUS 4 [facility] BLOOD INC INC VENIPUNCT URE PROTHROMB 49231 OSMANI KEEN IN TIME 4 [facility] INC INC PROTHROMB 91016 OSMANI KEEN IN TIME 4 [facility] INC INC BASIC 68959 OSMANI KEEN METABOLIC 4 [facility] PANEL INC INC CALCIUM TOTAL PROTHROMB 89024 OSMANI KEEN IN TIME 4 [facility] INC INC INTERROG 57491 JAMEL OCHOA EVAL F2F 4 HEART MAY 1/DUAL/ML SPECIALIS T LEADS TS, IMPLTBL DFB PROTHROMB 67188 OSMANI KEEN IN TIME 4 [facility] [facility] INC INC BILIRUBIN 57106 OSMANI KEEN DIRECT 4 [facility] [place] [place] [address] OSMANI KEEN THYROID 4 [facility] STIMULATI [place] [address] OSMANI KEEN FREE 4 [facility] THYROXINE INC INC PROTHROMB 97378 OSMANI KEEN IN TIME 4 [facility] INC INC HEMOGLOBI 40172 OSMANIEMIR KEEN N 4 [facility] GLYCOSYLA INC INC PAUL A1C LIPID 20592 OSMANI OSMANI PANEL 4 [facility] INC INC BLOOD 70898 OSMANI KEEN COUNT 4 [facility] COMPLETE INC INC AUTO&AUTO DIFRNTL WBC COMPREHEN 84538 OSMANIEMIR KEEN SIVE 4 [facility] METABOLIC INC INC PANEL NATRIURET 32654 [facility] IC 4 JUDAISM [facility] BASIC 41252 [facility] METABOLIC 4 JUDAISM J[facility]DAISM PANEL [facility]OSP HOSP CALCIUM TOTAL DRUG 73950 [facility] SCREEN 4 JUDAISM J[facility]ISM QU[facility]AT [facility] HOSP VERONICA DIGOXIN TOTAL PULMONARY 88124 [facility] STRESS 4 JUDAISM [facility]ING [facility] HOSP SIMPLE PROTHROMB 32309 C[facility] IN TIME 4 JUDAISM [facility] HOSP PROTHROMB 08953 OSMANIEMIR MERCHANTON IN TIME 4 MEM [facility] INC INC PROTHROMB 36040 OSMANI KEEN IN TIME 4 [facility] INC INC PROTHROMB 62444 [facility] IN TIME 4 JUDAISM [facility] HOSP BASIC 52471 [facility] METABOLIC 4 JUDAISM J[facility]DAISM PANEL HOSP HOSP CALCIUM TOTAL NATRIURET 13463 [facility] IC 4 JUDAISM [facility] HOSP PROTHROMB 55833 OSMANIEMIR MERCHANTON IN TIME 4 MEM [facility] INC INC [facility] 35495 [place] [facility] DISCHARGE 4 AAR DAY CARDIOLOG MANAGEMEN Y AT CENT T 30 MIN/< RADIOLOGI 81182 [facility] C EXAM 4 RADIOLOGY FELIPE CHEST 2 ASSOC VIEWS FRONTAL&L [facility] 79344 [facility] DISCHARGE 4 HEART MAY DAY SPECIALIS MANAGEMEN TS, T 30 MIN/< SBSQ 85046 [place] [address] HEART MAY CARE/DAY SPECIALIS 25 TS, MINUTES ECG 57076 [facility] ROUTINE [address] [facility] ECG SPECIALIS W/LEAST TS, 12 LDS I&R ONLY SBSQ 26328 [place] [address] HEART MAY CARE/DAY SPECIALIS 25 TS, MINUTES RADIOLOGI 54377 [facility] N. C EXAM 4 RADIOLOGY CHEST 2 ASSOC VIEWS FRONTAL&L ATERAL EPHYS 86407 JAMEL BRIDGES EVAL PACG 4 AAR CVDFB CARDIOLOG LDS Y AT CENT W/TSTG OF PULSE GEN SBSQ 10293 [place] [address] HEART MAY CARE/DAY SPECIALIS 25 TS, MINUTES INSJ/RPLC 59167 JAMEL BRIDGES MT PERM 4 AAR DFB CARDIOLOG W/TRNSVNS Y AT CENT LDS 1/DUAL CHMBR SBSQ 69614 [facility] 4 ORTH FABIANA CARE/DAY CARDIOLOG 25 Y AT CENT MINUTES RADIOLOGI 79545 [facility] CALLES C 4 RADIOLOGY III JAM EXAMINATI ASSOC ON CHEST SINGLE VIEW FRONTAL SBSQ 81761 [facility] 4 ORTH FABIANA CARE/DAY CARDIOLOG 25 Y AT CENT MINUTES SBSQ 14483 [facility] 4 MEDICINE CARE/DAY SERVICES, 15 MINUTES ECG 48595 [facility] ROUTINE 4 HEART MAY ECG SPECIALIS W/LEAST TS, 12 LDS I&R ONLY SBSQ 09419 [facility] 4 ORTH FABIANA CARE/DAY CARDIOLOG 25 Y AT CENT MINUTES ECG 91677 [facility] R[facility] 4 ECG W/LEAST 12 LDS I&R ONLY INITIAL 54606 [facility] 4 HEART MAY CARE/DAY SPECIALIS 70 TS, MINUTES CRITICAL 99675 [facility] 4 ILL/INJUR ED PATIENT INIT 30-74 MIN GROUND A0425 [facility] MILEAGE 4 [facility] EMS EMS MILE SBSQ 85758 [facility] 4 PULMONARY YUR CARE/DAY & 35 CRITICAL MINUTES AMB A0427 [facility] SERVICE 4 [facility] EMERGENCY EMS EMS TRANSPORT LEVEL 1 RADIOLOGI 84634 [facility] [place] [facility] C 4 RADIOLOGY EXAMINATI ON CHEST SINGLE VIEW FRONTAL ECG 99892 [place] [facility] 4 AAR ECG CARDIOLOG W/LEAST Y AT CENT 12 LDS W/I&R PROTHROMB 66095 OSMANI KEEN IN TIME 4 [facility] INC INC NON-INVAS 36733 NIHARIKA MARTIN 4 CARDIOTHO NATI PHYSIOLOG RACIC IC STUDY SURGI EXTREMITY 3 LEVLS ECG 88995 [facility] ROUTINE 4 HEART MAY ECG SPECIALIS W/LEAST TS, 12 LDS W/I&R ECHO 04897 [facility] TTHRC R-T 4 HEART MAY 2D SPECIALIS W/WOM-MOD TS, E COMPL SPEC&COLR D PROTHROMB 89145 OSMANI KEEN IN TIME 4 [facility] INC INC RADIOLOGI 60983 JUDAISM MELI Serrano EXAM 4 CARDIOTHO NATI CHEST 2 RACIC VIEWS SURGI FRONTAL&L ATERAL DRUG 75984 [facility] SCREEN 4 JUDAISM [facility] HOSP [place] DIGOXIN TOTAL NATRIURET 35634 [facility] IC 4 JUDAISM [facility] HOSP BASIC 45673 [facility] METABOLIC 4 JUDAISM J[facility]DAISM PANEL HOSP HOSP CALCIUM TOTAL TOBACCO 46959 [facility] USE 4 JUDAISM [facility]ATION [facility] HOSP INTERMEDI ATE 3-10 MINUTES PROTHROMB 92814 [employer] INC, IN TIME 4 ELECTRIC SWITCH TESTER ELECTRIC SWITCH TESTER [facility] HOS PROTHROMB 10158 [employer], IN TIME 4 ELECTRIC SWITCH TESTER ELECTRIC SWITCH TESTER [facility] TRANSITIO 00930 JUDAISM [facility] 4 HEART AND MANAGE VASCULAR SRVC 14 I DAY DISCHARGE PROTHROMB 44853 [employer], IN TIME 4 ELECTRIC SWITCH TESTER ELECTRIC SWITCH TESTER [facility] HOS DRUG 04946 [facility] SCREEN 4 JUDAISM [facility] HOSP [place] DIGOXIN TOTAL NATRIURET 40644 [facility] IC 4 JUDAISM [facility] [address] [facility] MAGNESIUM 4 [facility]ISM [facility] HOSP BASIC 41553 [facility] METABOLIC 4 JUDAISM J[facility]DAISM PANEL [facility]OSP HOSP CALCIUM TOTAL BLOOD 37658 [facility] COUNT 4 JUDAISM JUDAISM COMPLETE HOSP HOSP AUTOMATED IIV3 02036 MANOLO MANOLO VACCINE 4 NUSRAT NUSRAT SPLIT VIRUS 0.5 ML DOSAGE IM USE PPSV23 59617 MANOLO MANOLO VACCINE 2 4 NUSRAT NUSRAT YRS OR OLDER FOR SUBQ/IM USE PROTHROMB 71694 MHC INC, MHC INC, IN TIME 4 ELECTRIC SWITCH TESTER ELECTRIC SWITCH TESTER [facility] QUINT[facility] CO HOS CO HOS RADIOLOGI 26661 [facility] C 4 RADIOLOGY FELIPE EXAMINATI ASSOC ON CHEST SINGLE VIEW FRONTAL SBSQ 89400 [facility] 4 CARE/DAY INFECTIOU 25 S DISEASE MINUTES SBSQ 00992 [facility] 4 ASHTYN CARE/DAY CARDIOLOG 25 Y AT CENT MINUTES RADIOLOGI 50764 [facility] 4 RADIOLOGY EXAMINATI ASSOC ON CHEST SINGLE VIEW FRONTAL SBSQ 23313 [facility] 4 ASHTYN CARE/DAY CARDIOLOG 25 Y AT [facility] 11551 [facility] 4 HEART MAY DAY SPECIALIS MANAGEMEN TS, T 30 MIN/< SBSQ 35152 [facility] 4 PULMONARY S MALA CARE/DAY & 25 CRITICAL MINUTES SBSQ 30405 [place] [address] HEART MAY CARE/DAY SPECIALIS 35 TS, MINUTES SBSQ 31667 [facility] 4 PULMONARY S MALA CARE/DAY & 25 CRITICAL MINUTES SBSQ 69706 [facility] 4 PULMONARY S MALA CARE/DAY & 25 CRITICAL MINUTES RADIOLOGI 40491 [facility] N. C 4 RADIOLOGY EXAMINATI ASSOC ON CHEST SINGLE VIEW FRONTAL RADIOLOGI 54601 [facility] 4 RADIOLOGY EXAMINATI ASSOC ON CHEST SINGLE VIEW FRONTAL SBSQ 34185 [place] [address] HEART MAY CARE/DAY SPECIALIS 25 TS, MINUTES SBSQ 15913 [facility] 4 PULMONARY S MALA CARE/DAY & 35 CRITICAL MINUTES SBSQ 47769 [facility] 4 CARE/DAY INFECTIOU 35 S DISEASE MINUTES SBSQ 36731 [facility] 4 PULMONARY ANAYA CARE/DAY & 35 CRITICAL MINUTES CRITICAL 53259 [facility] 4 YIN ILL/INJUR INFECTIOU ED S DISEASE PATIENT INIT 30-74 MIN SBSQ 94953 [facility] 4 IV HEN CARE/DAY CARDIOLOG 25 Y AT CENT MINUTES RADIOLOGI 92114 [facility] C 4 RADIOLOGY FELIPE EXAMINATI ASSOC ON CHEST SINGLE VIEW FRONTAL RADEX 28953 [facility] A[facility]OM[facility] 1 4 RADIOLOGI C ANTEROPOS PROFESSIO TERIOR VIEW RADIOLOGI 38377 [facility] [place] C 4 RADIOLOGY FELIPE EXAMINATI ASSOC ON CHEST SINGLE VIEW FRONTAL SBSQ 74165 [facility] 4 IV HEN CARE/DAY CARDIOLOG 25 Y AT CENT MINUTES CRITICAL 08886 [facility] 4 YIN ILL/INJUR INFECTIOU ED S DISEASE PATIENT INIT 30-74 MIN SBSQ 62214 [facility] 4 PULMONARY ANAYA CARE/DAY & 35 CRITICAL MINUTES SBSQ 60474 [facility] 4 PULMONARY ANAYA CARE/DAY & 35 CRITICAL MINUTES CRITICAL 29416 [facility] 4 YIN ILL/INJUR INFECTIOU ED S DISEASE PATIENT INIT 30-74 MIN RADIOLOGI 54429 [facility] CALLES J C 4 RADIOLOGY EXAMINATI ASSOC ON CHEST SINGLE VIEW FRONTAL RADEX 69408 [facility] ABDOMEN 1 4 RADIOLOGY FELIPE ASSOC ANTEROPOS TERIOR VIEW RADIOLOGI 30395 [facility] C 4 RADIOLOGY FELIPE EXAMINATI ASSOC ON CHEST SINGLE VIEW FRONTAL CRITICAL 88397 [facility] 4 ILL/INJUR INFECTIOU ED S DISEASE PATIENT INIT 30-74 MIN SBSQ 67363 [facility] 4 PULMONARY ANAYA CARE/DAY & 35 CRITICAL MINUTES SBSQ 17354 [facility] 4 HEART MAY CARE/DAY SPECIALIS 25 TS, MINUTES SBSQ 84796 [facility] 4 PULMONARY ANAYA CARE/DAY & 35 CRITICAL MINUTES CRITICAL 23050 [facility] 4 ILL/INJUR INFECTIOU ED S DISEASE PATIENT INIT 30-74 MIN RADIOLOGI 90376 [facility] 4 RADIOLOGY EXAMINATI ASSOC ON CHEST SINGLE VIEW FRONTAL RADIOLOGI 65279 [facility] SHULTZ ADA C 4 RADIOLOGY EXAMINATI ASSOC ON CHEST SINGLE VIEW FRONTAL SBSQ 14421 [facility] 4 HEART MAY CARE/DAY SPECIALIS 35 TS, MINUTES (AORTO)CO 3611 [facility] 4 JUDAISM JUDAISM [facility] ONE CORONARY ARTERY OPEN & 3523 [facility] 4 JUDAISM JUDAISM REPLACEMN HOSP HOSP T MITRL VALVE W/TISSUE GRAFT SBSQ 46096 [facility] 4 CARE/DAY INFECTIOU 25 S DISEASE MINUTES SBSQ 68557 [facility] 4 CARE/DAY INFECTIOU 25 S DISEASE MINUTES SBSQ 26390 [facility] 4 Y THO CARE/DAY ASSOCIATE 15 S OF DAI MINUTES SBSQ 54639 [facility] [address] [facility] CARE/DAY SPECIALIS 35 TS, MINUTES RADIOLOGI 57114 [facility] 4 RADIOLOGY EXAMINATI ASSOC ON CHEST SINGLE VIEW FRONTAL RADIOLOGI 69258 [facility] RADIOLOGY EXAMINATI ASSOC ON CHEST SINGLE VIEW FRONTAL SBSQ 38768 [facility] 4 PULMONARY MAT CARE/DAY & 35 CRITICAL MINUTES ECG 62441 [facility] [address] [facility] ECG SPECIALIS W/LEAST TS, 12 LDS I&R ONLY SBSQ 64519 [facility] 4 CARE/DAY INFECTIOU 25 S DISEASE MINUTES SBSQ 46558 [facility] 4 Y SYE CARE/DAY ASSOCIATE 25 S OF DAI MINUTES CRITICAL 94560 JUDAISM [facility] 4 PULMONARY NUSRAT ILL/INJUR & ED CRITICAL PATIENT INIT 30-74 MIN REPLACEME 68086 NIHARIKA GARRISON NT MITRAL 4 CARDIOTHO NATI VALVE RACIC W/CARDIOP SURGI ULMONARY BYP NDSC SURG 04922 NIHARIKA GARRISON 4 CARDIOTHO NATI W/VIDEO-A RACIC SSISTED SURGI HARVEST VEIN CABG CORONARY 24787 NIHARIKA GARRISON ARTERY 4 CARDIOTHO NATI BYPASS 1 RACIC CORONARY SURGI VENOUS GRAFT ARTL 09176 NIHARIKA GARRISON CATHJ/CAN 4 CARDIOTHO NATI NULJ RACIC MNTR/RENNER SURGI SFUSION SPX PRQ ECG 36226 [facility] ROUTINE 4 HEART MAY ECG SPECIALIS W/LEAST TS, 12 LDS I&R ONLY SBSQ 44250 [facility] 4 HEART MAY CARE/DAY SPECIALIS 35 TS, [place] [address] [facility] PAT SURG 4 MARSHA & PATHOLOGY DUBILIER GROSS&YIN ROSCOPIC EXAM ANES HRT 77278 [facility] PERICRD 4 [facility] SAC&GRT ANESTHESI VSLS A W/EMERGENCY SPECIALIST OXTJ >1MO PO DOPPLER 34309 [facility] ECHOCARD 4 [facility] PULSE ANESTHESI WAVE A W/SPECTRA L DISPLAY RADIOLOGI 82001 [facility] C 4 RADIOLOGY EXAMINATI ASSOC ON CHEST SINGLE VIEW FRONTAL INSERTION 60013 [facility] FLOW 4 [facility] DIRECTED ANESTHESI CATHETER A FOR MONITORIN G ECHO 08859 [facility] TRANSESOP 4 [facility] HAG R-T ANESTHESI 2D W/PRB A IMG ACQUISJ I&R DOP 36841 [facility] ECHOCARD 4 [facility] COLOR ANESTHESI FLOW A VELOCITY MAPPING RPR BLOOD 35117 JUDAISMAllen GARRISON VESSEL 4 CARDIOTHO NATI DIRECT RACIC LOWER SURGI EXTREMITY RADIOLOGI 27105 [facility] CALLES J C 4 RADIOLOGY EXAMINATI ASSOC ON CHEST SINGLE VIEW FRONTAL SBSQ 15007 [facility] 4 HEART MAY CARE/DAY SPECIALIS 35 TS, MINUTES ECG 87388 [facility] ROUTINE 4 HEART MAY ECG SPECIALIS W/LEAST TS, 12 LDS I&R ONLY INITIAL 88466 [facility] 4 Y SYE CARE/DAY ASSOCIATE 70 S OF DAI MINUTES SBSQ 19347 [facility] 4 CARE/DAY INFECTIOU 25 S DISEASE MINUTES ARTL 89336 JUDAISMAllen AGOSTO CATHJ/CAN 4 PULMONARY CELINA NULJ AND MNTR/RENNER CRITIC SFUSION SPX PRQ PRQ 44505 [facility] 4 HEART MAY CORONRY SPECIALIS TOT TS, OCCLUS REVASC TN ONE VSL CRITICAL 90869 JAMEL HICKS [facility] 4 ILL/INJUR INFECTIOU ED S DISEASE PATIENT INIT 30-74 MIN COMBINED 3723 [facility] RIGHT&LEF 4 JUDAISM JUDAISM T HEART HOSP HOSP CARD CATHETERI ZATION CONT 9672 [facility] INVASIVE 4 JUDAISM JUDAISM [facility] VENT HOSP HOSP 96 CONSECUTI VE HRS/MORE INSERTION 3768 [facility] PERQ 4 JUDAISM JUDAISM EXTERNAL [facility]P HOSP HEART ASSIST DEVICE RADIOLOGI 11457 [facility] N. C 4 RADIOLOGY EXAMINATI ASSOC ON CHEST SINGLE VIEW FRONTAL ENDOLUMIN 53006 [facility] 4 HEART MAY CORONARY SPECIALIS IVUS OCT TS, I&R INITIAL VESSEL R & L HRT 83559 [facility] 4 HEART MAY WINJX HRT SPECIALIS ART& L TS, VENTR IMG INSJ PERQ 38019 [facility] VAD 4 HEART MAY W/IMAGING SPECIALIS ARTERY TS, ACCESS ONLY RADIOLOGI 69954 [facility] 4 KLEVER EXAMINATI RADIOLOGY ON CHEST ASSOCIAT SINGLE VIEW FRONTAL ECG 74817 SHEA PALENCIA PALENCIA SHEA ROUTINE 4 MD ECG CONSULTIN W/LEAST G SRV 12 LDS I&R ONLY BLOOD 26282 [facility] COUNT [address] [place] [address] AUTOMATED BASIC 34624 [facility] METABOLIC [address] [place] [address] CALCIUM TOTAL COLLECTIO 76171 [facility] N VENOUS 4 [facility] VENIPUNCT URE ECG 87516 [facility] ROUTINE [address] [place] [address] W/LEAST 12 LDS TRCG ONLY W/O I&[place] [address] MHC INC, MHC INC, FREE 4 ELECTRIC SWITCH TESTER ELECTRIC SWITCH TESTER THYROXINE [facility] [place] [address] [facility] INC, MHC INC, THYROID 4 ELECTRIC SWITCH TESTER ELECTRIC SWITCH TESTER STIMULATI [facility] QUINTAN[facility] NG CO HOS CO HOS HORMONE TSH RADIOLOGI 57909 [employer], [employer], C EXAM 4 ELECTRIC SWITCH TESTER ELECTRIC SWITCH TESTER CHEST 2 [facility] QUINTANILLA VIEWS CO HOS CO HOS FRONTAL&L ATERAL RADEX 84437 [facility] SPINE 4 EIDER DAVID LUMBOSACR RADIOLOGY AL ASSOCIAT MINIMUM 4 VIEWS COMPREHEN 03621 [employer], SIVE 4 ELECTRIC SWITCH TESTER ELECTRIC SWITCH TESTER METABOLIC [facility] QUINTAN[facility] PANEL CO HOS CO HOS DRUG SCR [id number] [employer], NOT 4 ELECTRIC SWITCH TESTER ELECTRIC SWITCH TESTER CHROMATOG [facility] QUINTANILLA RAPHIC; CO HOS CO HOS ANY NUMBER PT ENC URINALYSI 10486 [employer], S 4 ELECTRIC SWITCH TESTER ELECTRIC SWITCH TESTER QUAL/SEMI [facility] QUINTAN[facility] QUANT CO HOS CO HOS EXCEPT IMMUNOASS AYS BLOOD 08100 [employer], COUNT 4 ELECTRIC SWITCH TESTER ELECTRIC SWITCH TESTER COMPLETE [facility] QUINTANILLA AUTO&AUTO CO HOS CO HOS DIFRNTL WBC LIPID 48943 [employer], PANEL 4 ELECTRIC SWITCH TESTER ELECTRIC SWITCH TESTER [facility] BOONES CO [facility]OS CO HOS Encounters Encounter Start End Date Code Location Performer Type Date [facility] - 6 6 [facility] T OFFICE 94977 [facility] 6 6 PHYSICIAN T VISIT S GROUP 10 MINUTES HOSPITAL OSM[facility] - 6 6 [facility] 96258 [facility] PHYSICIAN T NEW 30 S GROUP MINUTES [facility] 6 [facility] OFFICE 47892 [facility] 6 6 [facility] VISIT URGENT 15 TREAT MINUTES OFFICE 00045 [facility] 6 6 [facility] VISIT URGENT 25 TREAT MINUTES OFFICE 13847 [facility] 6 6 [facility] VISIT URGENT 25 TREAT MINUTES HOSPITAL OSMANI - 6 6 [facility] OUTPATIEN [facility] OFFICE 05841 [facility] 6 6 HEART MAY T VISIT SPECIALIS 15 TS, MINUTES HOSPITAL OSMANI - 6 6 [facility] OUTPATI[facility] HOSPITAL OSMANI - 6 6 [facility]PATI[facility] HOSPITAL OSMANI - 6 6 [facility]PATI[facility] HOSPITAL OSMANI - 6 6 [facility]PAT[facility] HOSPITAL OSMANI - 6 6 [facility] OUTPATIEN [facility] OFFICE [address]6762 [place] [facility] OUTPATIEN 6 6 HEART MAY T VISIT SPECIALIS 25 TS, MINUTES [facility] OSMANI - 6 6 [facility] OUTPATIEN [facility] OSMANI - 6 6 [facility] OUTPATIEN [facility] HOSPITAL OSMANI - 6 6 [facility] OUTPATIEN [facility] HOSPITAL OSMANI - 6 6 [facility] OUTPATIEN [facility] HOSPITAL OSMANI - 6 6 [facility] OUTPATIEN [facility] OFFICE 89519 [facility] OUTPATIEN 6 6 [facility] VISIT URGENT 25 TREAT MINUTES [facility] OSMANI - 6 6 MEM [facility] OUTPATIEN [facility] HOSPITAL OSMANI - 5 5 [facility] OUTPATIEN [facility] OSMANI - 5 5 [facility] OUTPATIEN [facility] HOSPITAL OSMANI - 5 5 [facility] OUTPATIEN [facility] OFFICE 74996 JOSLYN CARDONA [facility] 5 5 MD DANIEL, T VISIT PSC 10 MINUTES HOSPITAL OSMANI - 5 5 [facility] OUTPATIEN [facility] HOSPITAL OSMANI - 5 5 [facility] OUTPATIEN [facility] HOSPITAL OSMANI - 5 5 [facility] OUTPATIEN [facility] HOSPITAL OSMANI - 5 5 [facility] OUTPATIEN [facility] OFFICE 82492 NEIL SANCHEZ ANJ OUTPATIEN 5 5 [facility] 30 MINUTES [facility] OSMANI - 5 5 MEM [facility] OUTPATIEN [facility] HOSPITAL OSMANI - 5 5 [facility] OUTPATIEN [facility] EMERGENCY 15786 DARREN BANKS, 5 5 [facility] T VISIT HIGH/URGE NT SEVERITY HOSPITAL OSMANI - 5 5 [facility] OUTPATIEN [facility] EMERGENCY 79337 OSMANI 5 5 [facility] VISIT LOW/MODER SEVERITY HOSPITAL OSMANI [facility] 5 5 [facility] OUTPATIEN [facility] HOSPITAL OSMANI - 5 5 [facility] OUTPATIEN [facility] OSMANI - 5 5 [facility]PATI[facility] OSMANI - 5 5 [facility] OUTPATIEN [facility] CENTRAL - 5 5 [facility] OFFICE [address] [facility] 5 5 HEALTH T VISIT MEDICAL 25 GROUP MINUTES [facility] OSMANI - 5 5 MEM [facility] OUTPATIEN [facility] OSMANI - 4 4 [facility] OUTPATIEN [facility] HOSPITAL OSMANI - 4 4 [facility] OUTPATIEN [facility] OSMANI - 4 4 MEM [facility] OUTPATIEN INC OFFICE 70468 JAMEL [facility] 4 4 HEART MAY T VISIT SPECIALIS 25 TS, [facility] - 4 4 [facility] 4 4 [facility] - 4 4 JUDAISM OUTPATIEN [facility] - 4 4 [facility] - 4 4 [facility] 4 4 JUDAISM OUTPATIEN [facility] T OFFICE [id number] JUDAISM MAYTE [facility] OUTPATIEN 4 4 HEART AND T VISIT VASCULAR 25 I MINUTES [facility]SM[facility] - 4 4 [facility] OUTPATIEN [facility] EMERGENCY [id number] [facility] DEPT 4 4 EMERGENCY MAR VISIT PHYS PSC HIGH SEVERITY& THREAT FUNCJ OFFICE [id number] JAMEL BRIDGES OUTPATIEN 4 4 AAR T VISIT CARDIOLOG 25 Y [facility] OSM[facility] - 4 4 [facility] OUTPATIEN [facility] OFFICE 60034 JAMEL OCHOA OUTPATIEN 4 4 HEART MAY T VISIT SPECIALIS 25 TS, MINUTES [facility] OSM[facility] - 4 4 [facility] OUTPATIEN [facility] 4 4 JUDAISM OUTPATIEN [facility], - 4 4 [employer] OUTPATIEN PSYCHIATRIC OFFICE [id number] JUDAISM SABAS OUTPATIEN 4 4 HEART AND TRA T VISIT VASCULAR 25 I MINUTES [facility], - 4 4 ELECTRIC [employer] OUTPATIEN [facility] INC, - 4 4 ELECTRIC SW[employer] TE[employer] OUTPATIEN [facility] - 4 4 JUDAISM OUTPATIEN [facility] T OFFICE 63391 MANOLO KATE 4 4 NUSRAT Villa VISIT 15 MINUTES [facility] INC, - 4 4 ELECTRIC SWITCH TESTER [facility] C[facility] - 4 4 JUDAISM INPATIENT HOSP OFFICE 18065 MARY LOU BARRETO JR CONSULTAT 4 4 JOSE ANTONIO JOSE ANTONIO ION NEW/ESTAB PATIENT 60 MIN [facility] [place] - 4 4 [facility] INC, - 4 4 ELECTRIC SWITCH TESTER [facility] HOS OFFICE [id number] MANOLO FRENCH OUTLACIE 4 4 NUSRAT Villa NEW 30 MINUTES
--- OUTSIDE RECORDS SUMMARY | 2016-11-20 15:50 | External Medical Summary Rpt | CCD ---
Author Author , ARTIS WISDOM Address Unknown Phone [email or web address] Care Team Providers Care Ribbon Cutter Name Role Phone FABIOLA MAR, FABIOLA MAR Unavailable Unavailable ALLRAN JR JOSE ANTONIO, ALLRAN Unavailable Unavailable JR JOSE ANTONIO JOSLYN SANCHEZ MD, PSC, Unavailable Unavailable JOSLYN SANCHEZ MD, PSC [facility] Unavailable Unavailable [facility], [facility] Unavailable Unavailable [facility], [facility] Unavailable Unavailable VASCULAR I, [facility] & Unavailable Unavailable CRITICAL, [facility] BESSON, BESSON Unavailable Unavailable BESSON DAT, BESSON Unavailable Unavailable DAT HORNE ALL, HORNE ALL Unavailable Unavailable [facility] Unavailable Unavailable HOSPITAL, [facility] BUX ANJ, BUX ANJ Unavailable Unavailable SHAYLA ALA, SHAYLA Unavailable Unavailable ALA [facility], Unavailable Unavailable [facility] Unavailable Unavailable PHYS PSC, [facility] [place] Unavailable Unavailable [facility], [facility] [place] [facility] Unavailable Unavailable ASSOC, [facility] MAYTE KATHYA, MAYTE KATHYA Unavailable Unavailable [facility], Unavailable Unavailable [facility] PALENCIA SHEA, PALENCIA SHEA Unavailable Unavailable [...] Unavailable SAAD JULIEN, Unavailable Unavailable OSMANI JULIEN [facility] Unavailable Unavailable INC, [facility] Unavailable [facility]available HOSPITAL P, [facility] RICHLAND KLEVER, WOMACK Unavailable Unavailable KLEVER YULIANA FERNANDO, Unavailable Unavailable YULIANA FERNANDO [facility], Unavailable Unavailable [facility] SABAS TAYLOR, HOLLULI Unavailable Unavailable [facility] FABIANA, Unavailable Unavailable [facility] Unavailable Unavailable SERVICES,, [facility], SUDHA NAN, SUDHA Unavailable Unavailable NAN BERTHA SYE, BERTHA Unavailable Unavailable SYE HERRERA SHE, HRERERA SHE Unavailable Unavailable [place] FELIPE, DAVENPORT Unavailable Unavailable [facility] Unavailable Unavailable [facility]ING [facility], [facility] Unavailable Unavailable AT [facility], [facility] Unavailable Unavailable SPECIALISTS,, [facility], [facility] Unavailable Unavailable DISEASE, [facility] MANOLO NUSRAT, MANOLO Unavailable Unavailable NUSRAT MANOLO NUSRAT, MANOLO Unavailable Unavailable NUSRAT [facility] Unavailable Unavailable ASSOCIAT, [facility], Unavailable Unavailable [facility] Unavailable Unavailable [facility], [facility] MIEDLER YIN, MIEDLER Unavailable Unavailable YIN MELI NATI, Unavailable Unavailable MELI DAMIAN ROJAS NUSRAT, ROJAS Unavailable Unavailable [facility] Unavailable Unavailable [facility], [facility] Unavailable Unavailable EMS, [facility] IVETT TOD, IVETT TOD Unavailable [...] Unavailable MAR BRIAN MAR, Unavailable Unavailable BRIAN MAR SHETH ANAYA, Unavailable Unavailable DOMENIC GOSS MALA, Unavailable Unavailable TZKELLYANAPAMELA MEDEIR[facility], [facility] Unavailable Unavailable Medicine BALBIR IBARRA, Unavailable Unavailable [facility] AGOSTO CELINA, TRINY Unavailable Unavailable CELINA Purpose Continuity of Care Document - 03-16-2013 through 2016 Problems Code Diagnosis DOS Provider Status I509 HEART 02-01-2016 [facility] FAILURE [facility] UNSPECIFIED SPECIALISTS , K4091 UNILAT 10-26-2015 [facility]AL [facility] HERNIA W/O INC OBST/GANGRE NE RECUR Z7901 PENITENTIARY 10-26-2015 [facility] CURRENT USE [facility] OF INC ANTICOAGULA NTS K4021 BILAT 10-10-2015 [facility] INGUINAL PHYSICIANS HERNIA W/O GROUP OBST OR GANGRENE RECUR K469 UNS 10-10-2015 [facility]AL [facility] HERNIA W/O HOSPITAL P OBSTRUCTION OR GANGRENE T22184 ENCOUNTER 10-10-2015 [facility] FOR OTHER [facility] PRE[facility]ED [facility]OSP[facility] P AL EXAMINATION Z5181 ENCOUNTER 10-10-2015 [facility] P DRUG LEVEL MONITORING Z952 PRESENCE OF 10-10-2015 [facility] PROSTHETIC [facility] HEART INC VALVE R312 OTHER 10-01-2015 [facility] HEMATURIA [facility] R319 HEMATURIA 10-01-2015 [facility] [place] UNSPECIFIED RADIOLOGY G2581 RESTLESS 09-06-2015 [facility] LEGS [facility] SYNDROME URGENT TREAT L247 IRRITANT 08-21-2015 [facility] CONTACT [facility] DERMATITIS URGENT D/T PLANTS TREAT NO FOOD R3915 URGENCY OF 08-21-2015 [facility] URINATION [facility] URGENT TREAT 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 CHRONIC 08-02-2015 [facility] 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 , FAILURE I2510 ASHD [place]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 , 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 SPECIALISTS , I472 VENTRICULAR 05-07-2015 [facility] TACHYCARDIA SPECIALISTS , I348 OTHER 05-04-2015 [facility] 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 I340 NONRHEUMATI 04-13-2015 [facility] C MIT[facility]AL [facility] VALVE INC INSUFFICIEN CY B001 HERPESVIRAL 02-27-2015 [facility] VESICULAR [facility] DERMATITIS URGENT TREAT K5792 DIVERTICULI 02-27-2015 [facility] PART [facility] UNS W/O URGENT PERF/ABSC TREAT W/O BLEED R1032 LEFT LOWER 02-27-2015 [facility] QUADRANT [facility] PAIN URGENT TREAT R110 NAUSEA 02-27-2015 [facility] URGENT TREAT R42 DIZZINESS 02-27-2015 [facility] GIDDINESS URGENT TREAT 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 INC I495 SICK SINUS 12-01-2014 [facility] SYNDROME [facility]ART SPECIALISTS , R002 PALPITATION 12-01-2014 [facility] S [facility]ART [facility] , 78451 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 BUX, LUMBAR/LUMB , PSC OSACRAL INTERVERTEB RAL DISC 7244 THORACIC/CHERRY 10-31-2014 CAROLANN LUND MD, PSC NEURITIS/RA DICULITIS UNSPEC 4240 MITRAL 10-18-2014 [facility] VALVE [facility] DISORDERS INC V433 HEART VALVE 10-18-2014 [facility] REPLACED [facility] BY OTHER INC MEANS V5861 LONG-TERM 10-18-2014 [facility] (CURRENT) [facility]OS[facility] USE OF INC ANTICOAGULA NTS 54193 PRIMARY 07-15-2014 [facility] LOCALIZED [facility] OSTEOARTHRO INC SIS FOREARM 15275 PAIN IN 07-15-2014 [place] [facility] 75149 PAIN IN 07-15-2014 [place] [facility]ICAL ANKLE AND IMAGING ASS FOOT 7242 LUMBAGO 07-15-2014 [facility] 7295 PAIN IN 07-15-2014 [place] [facility]ICAL TISSUES OF IMAGING ASS LIMB 44560 UNSPECIFIED 07-15-2014 [facility] SITE OF MEM [facility] ANKLE INC SPRAIN AND STRAIN 4271 PAROXYSMAL 04-19-2014 [facility] P TACHYCARDIA 2724 OTHER AND 04-11-2014 [facility] UNSPECIFIED [facility] HYPERLIPIDE ADARSH 4011 ESSENTIAL 04-11-2014 [facility], [facility] 4019 UNSPECIFIED 04-11-2014 [facility] ESSENTIAL [facility] HYPERTENSIO HOSP N 73934 CORONARY 04-11-2014 [facility] [place] [facility]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 4254 OTHER 04-11-2014 [facility] PRIMARY [facility] CARDIOMYOPA HOSP OTIS 4280 CONGESTIVE 04-11-2014 [facility] FAILURE SPECIALISTS UNSPECIFIED , 14996 CHRONIC 04-11-2014 [facility] SYSTOLIC [facility] FAILURE V5866 LONG-TERM 04-11-2014 [facility] USE OF [facility] ASPIRIN HOSP V5869 LONG-TERM 04-11-2014 [facility] (CURRENT) [facility] USE OF HOSP OTHER MEDICATIONS 4148 OTHER SPEC 03-08-2014 [facility] FORMS [facility] CHRONIC INC ISCHEMIC HEART DISEASE 4242 TRICUSPID 02-20-2014 [facility] VALVE Medicine DISORDERS SPEC NONRHEUMATI C 412 OLD 11-14-2013 [facility] MYOCARDIAL [facility] INFARCTION SPECIALISTS , V1749 FAMILY 11-14-2013 [facility] HISTORY OF HEART OTHER SPECIALISTS CARDIOVASCU , LAR DISEASES 4010 ESSENTIAL 11-01-2013 [facility] HYPERTENSIO [facility] N, INC MALIGNANT 45654 OTHER 11-01-2013 [facility] MALAISE AND [facility] FATIGUE INC 6959 UNSPECIFIED 08-23-2013 [facility] ERYTHEMATOU AT CENT S CONDITION 5110 PLEURISY 08-19-2013 [facility] WITHOUT [...] [facility] ADJUSTMENT RADIOLOGY OF CARDIAC ASSOC PACEMAKER 57706 OTHER 08-15-2013 [facility] SPECIFIED CARDIOLOGY CARDIAC AT CENT DYSRHYTHMIA S V5881 FITTING AND 08-14-2013 [facility] ADJUSTMENT RADIOLOG[facility] OF ASSOC VASCULAR CATHETER 10155 DIAB W/O 08-13-2013 HOSPITAL COMP TYPE MEDICINE II/UNS NOT SERVICES, STATED UNCNTRL 32433 ACUT ID 08-11-2013 [facility] INFEROLAT WALL INIT EPIS CARE 03102 COR 08-11-2013 [facility] ATHEROSLERO PULMONARY & UNSPEC CRITICAL TYPE VESSEL [place]/ALEK T 7804 DIZZINESS 08-11-2013 [facility] [place] AND RADIOLOGY GIDDINESS 74478 NAUSEA 08-02-2013 [facility] ALONE HEART AND VASCULAR I 4439 UNSPECIFIED 07-12-2013 [facility] PERIPHERAL CARDIOTHORA VASCULAR CIC SURGI DISEASE 20204 ABNORMAL 06-27-2013 [place] [facility] PROFILE INC 99820 CORONARY 05-16-2013 [facility] ATHEROSCLER HEART AND OSIS OF VASCULAR I ARTERY BYPASS GRAFT 66688 ACUTE 05-16-2013 [facility] SYSTOLIC HEART AND HEART VASCULAR I FAILURE 4589 UNSPECIFIED 05-16-2013 [facility] HEART AND HYPOTENSION VASCULAR I 01902 HTN CKD UNS 04-26-2013 [facility] W/CKD [facility] STAGE I HOSP THRU STAGE IV/UNS 23906 UNSPECIFIED 04-26-2013 [facility] SYSTOLIC [facility] FAILURE 5859 CHRONIC 04-26-2013 [facility] KIDNEY [facility] DISEASE HOSP UNSPECIFIED V5863 LONG-TERM 04-26-2013 [facility] USE OF [facility] ANTIPLATELE HOSP T/ANTITHROM BOTIC 01898 LOSS OF 04-25-2013 MANOLOJONY SILVERIO WEIGHT 25039 OTH COMPS 04-25-2013 [facility] SILVERIO DUE OTH CARD DEVICE IMPLANT&GRA FT V0382 NEED PROPH 04-25-2013 [facility] JOS VACCINATION AGAINST STREP PNEUMONE V0481 NEED 04-25-2013 [facility] SILVERIO PROPHYLACTI C VACCINATION &INOCULATIO N FLU 5119 UNSPECIFIED 04-18-2013 [facility] PLEURAL RADIOLOGY EFFUSION ASSOC V5874 AFTERCARE 04-18-2013 [facility] FOLLOW RADIOLOGY SURGERY ASSOC RESPIRATORY SYSTEM NEC 5180 PULMONARY 04-17-2013 [facility] COLLAPSE RADIOLOGY ASSOC V4581 POSTSURGICA 04-17-2013 [facility] L RADIOLOGY AORTOCORONA ASSOC RY BYPASS STATUS 24003 LEUKOCYTOSI 04-14-2013 J[facility] S INFECTIOUS UNSPECIFIED DISEASE 20633 ACUT 04-14-2013 [facility] MYOCARD INFECTIOUS INFARCT UNS DISEASE SITE EPIS CARE UNS 4111 INTERMEDIAT 04-14-2013 [facility] E CORONARY HEART SYNDROME SPECIALISTS , 30026 ACUTE 04-14-2013 [facility] RESPIRATORY INFECTIOUS FAILURE DISEASE 5849 ACUTE 04-14-2013 [facility] KIDNEY INFECTIOUS FAILURE DISEASE UNSPECIFIED 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 5183 PULMONARY 04-13-2013 [facility] EOSINOPHILI RADIOLOGY A ASSOC 98577 OTHER 04-12-2013 [facility] DISEASES OF RADIOLOGY LUNG NOT ASSOC ELSEWHERE CLASSIFIED V5882 ENCOUNTER 04-12-2013 [facility] FITTING&ADJ RADIOLOGY ASSOC NON-VASCULA R CATHETER NEC 4210 ACUTE AND 04-09-2013 [facility] SUBACUTE INFECTIOUS BACTERIAL DISEASE ENDOCARDITI S 31601 FEVER 04-09-2013 [facility] UNSPECIFIED INFECTIOUS DISEASE V5873 AFTERCARE 04-09-2013 [facility] FOLLOWING RADIOLOGY SURGERY ASSOC CIRC SYSTEM NEC V4589 OTHER 04-08-2013 [facility] POSTSURGICA RADIOLOGY L STATUS ASSOC OTHER 486 PNEUMONIA, 04-07-2013 [facility] ORGANISM RADIOLOGY UNSPECIFIED ASSOC 05440 ENDOCARDITI 04-06-2013 [facility] S VALVE RADIOLOGY UNSPECIFIED ASSOC UNSPECIFIED CAUSE 11429 OTHER 04-04-2013 [facility] NONSPECIFIC RADIOLOGY ABNORMAL ASSOC FINDING OF LUNG FIELD 4149 UNSPECIFIED 04-02-2013 [facility] CHRONIC CARDIOTHORA ISCHEMIC CIC SURGI HEART DISEASE 94839 HEMORRHAGE 04-02-2013 [facility] COMPLICATIN CARDIOTHORA G A CIC SURGI PROCEDURE NEC 0389 UNSPECIFIED 03-31-2013 [facility] SEPTICEMIA [facility] 93888 METABOLIC 03-31-2013 [facility] ENCEPHALOPA [facility] THY HOSP 73542 ACUT ID 03-31-2013 [facility] ANTEROLAT PULMONARY & WALL EPIS CRITICAL CARE UNS 01918 ACUT 03-31-2013 [facility] MYOCARD [facility] INFARCT OTH HOSP INF WALL INIT EPIS CARE 88528 ACUTE 03-31-2013 [facility] RESPIRATORY [facility] FAILURE HOSP [facility] TRAUMA & SURGERY 39174 UNSPECIFIED 03-31-2013 [facility] SHOCK PULMONARY & CRITICAL 514 PULMONARY 03-30-2013 [facility] HYPOSTASIS 20947 ING HERNIA 03-28-2013 [place] [facility] OBSTRUCTION /GANGREN BILAT V7283 OTHER 03-28-2013 [place] SPECIFIED [facility] PRE[facility]I [facility]PITAL VE EXAMINATION 4293 CARDIOMEGAL 03-21-2013 [facility] Y [facility]IOLOGY ASSOCIAT 02610 ING NERISSA 03-21-2013 [facility], W/O MENTION SENIOR ETL DEVELOPER [facility] CO OBST/GANGRE HOS N UNILAT/UNSP EC 7245 UNSPECIFIED 03-21-2013 [facility], BACKACHE SENIOR [facility] [place] [facility] 06139 OTHER 03-16-2013 [facility] SILVERIO CHRONIC PAIN Medications [...] 17 17 [address] NICOLAS UG S 25 MG TA BL ET [...] ent ider Refu lity Give sed n PPSV 03- 33 JOELLE No JOELLE 23 7-20 [facility] NZO VACC 14 NUSRAT INE 2 YRS OR NUSRAT OLDE R FOR SUBQ /IM USE IIV3 04-09 141 JOELLE No JOELLE 7-20 [facility] NZO VACC 14 NUSRAT INE SPLI T VIRU NUSRAT S 0.5 ML DOSA GE IM USE Procedures Procedure DOS Code Location Performer Comment INTERROGA 63667 [place] [facility] TION EVAL 6 HEART REMOTE SPECIALIS </30 D CV TS, MNTR SYS INTERROGA 20416 [place] [facility] TION EVAL 6 HEART REMOTE SPECIALIS </30 D TS, TECH REVIEW INTERROGA 71371 [place] [facility] TION EVAL 6 HEART MAY REMOTE SPECIALIS </30 D TS, TECH REVIEW INTERROGA 53176 [place] [facility] TION EVAL 6 HEART MAY REMOTE SPECIALIS </30 D CV TS, MNTR SYS INTERROGA 79809 [place] [facility] TION EVAL 6 HEART MAY REMOTE SPECIALIS </30 D CV TS, MNTR SYS INTERROGA 40007 [place] [facility] TION EVAL 6 HEART MAY REMOTE SPECIALIS </30 D TS, TECH REVIEW INTERROGA 80918 [place] [facility] TION EVAL 6 HEART MAY REMOTE SPECIALIS </30 D TS, TECH REVIEW INTERROGA 99430 [place] [facility] TION EVAL 6 HEART MAY REMOTE SPECIALIS </30 D CV TS, MNTR SYS RPR RECRT 94434 [facility] KEEN INGUINAL 6 [facility] HERNIA INC INC ANY AGE REDUCIBLE ECG 45131 [facility] KEEN ROUTINE 6 [facility] ECG INC INC W/LEAST 12 LDS TRCG ONLY W/O I&R ECG 45685 [facility] CERVANTES ROUTINE 6 [facility] W/LEAST P 12 LDS I&[place] [address] [facility] [place] [facility] ABDOMEN 6 RADIOLOGY RHO W/O CONTRAST MATERIAL INTERROGA 01516 [facility] TION EVAL 6 HEART MAY REMOTE SPECIALIS </30 D TS, TECH REVIEW INTERROGA 16631 [place] [facility] TION EVAL 6 HEART MAY REMOTE SPECIALIS </30 D CV TS, MNTR SYS BLOOD 87220 [facility] COLMENARESOLAS OCCULT 6 [facility] URGENT URGENT E ACTV TREAT TREAT QUAL FECES 1 DETER INTERROGA 22933 [place] [facility] TION EVAL 6 HEART MAY REMOTE SPECIALIS </30 D CV TS, MNTR SYS INTERROGA 88875 [facility] TION EVAL 6 HEART MAY REMOTE SPECIALIS </30 D TS, TECH REVIEW COLLECTIO 79739 [facility] KEEN N VENOUS 6 [facility] BLOOD INC INC VENIPUNCT URE PROTHROMB 74625 [facility] KEEN IN TIME 6 [facility] INC INC PROTHROMB 94928 [facility] KEEN IN TIME 6 [facility] INC INC COLLECTIO 79868 [facility] KEEN N VENOUS 6 [facility] H[facility] BLOOD INC INC VENIPUNCT URE INTERROGA 34370 [facility] TION EVAL 6 HEART MAY REMOTE SPECIALIS </30 D CV TS, MNTR SYS INTERROGA 47843 [facility] TION EVAL 6 HEART MAY REMOTE SPECIALIS </30 D TS, TECH REVIEW PROTHROMB 74448 [facility] KEEN IN TIME 6 [facility]OS[facility] INC INC COLLECTIO 91269 [facility] KEEN N VENOUS 6 [facility] BLOOD INC INC VENIPUNCT URE COLLECTIO 30752 [facility] KEEN N VENOUS 6 [facility] BLOOD INC INC VENIPUNCT URE PROTHROMB 86529 [facility] KEEN IN TIME 6 [facility] INC INC INTERROGA 18637 [place] [facility] TION EVAL 6 HEART MAY REMOTE SPECIALIS </30 D TS, TECH REVIEW INTERROGA 63796 [place] [facility] TION EVAL 6 HEART MAY REMOTE SPECIALIS </30 D CV TS, MNTR SYS COLLECTIO 70280 [facility] KEEN N VENOUS 6 [facility] BLOOD INC INC VENIPUNCT URE PROTHROMB 93929 [facility] KEEN IN TIME 6 [facility] INC INC PROTHROMB 41786 [facility] KEEN IN TIME 6 [facility] INC INC COLLECTIO 21065 [facility] KEEN N VENOUS 6 [facility] BLOOD INC INC VENIPUNCT URE INTERROGA 85910 [place] [facility] TION EVAL 6 HEART MAY REMOTE SPECIALIS </30 D CV TS, MNTR SYS INTERROGA 69536 [place] [facility] TION EVAL 6 HEART MAY REMOTE SPECIALIS </30 D TS, TECH REVIEW PROTHROMB 59801 [facility] KEEN IN TIME 6 [facility] INC INC COLLECTIO 05918 [facility] KEEN N VENOUS 6 [facility] BLOOD INC INC VENIPUNCT URE COLLECTIO 71136 [facility] KEEN N VENOUS 6 [facility] BLOOD INC INC VENIPUNCT URE PROTHROMB 33890 [facility] KEEN IN TIME 6 [facility] INC INC PROTHROMB 74686 [facility] KEEN IN TIME 6 [facility] INC INC COLLECTIO 46123 [facility] KEEN N VENOUS 6 [facility] BLOOD INC INC VENIPUNCT URE INTERROGA 84546 [place] [facility] TION EVAL 6 HEART MAY REMOTE SPECIALIS </30 D CV TS, MNTR SYS COLLECTIO 27521 [facility] KEEN N VENOUS 6 [facility] BLOOD INC INC VENIPUNCT URE PROTHROMB 47462 [facility] KEEN IN TIME 6 [facility] INC INC INTERROGA 90894 [place] [facility] TION EVAL 6 HEART MAY REMOTE SPECIALIS </30 D TS, TECH REVIEW PROTHROMB 42164 [facility] KEEN IN TIME 6 [facility] INC INC COLLECTIO 16758 [facility] KEEN N VENOUS 6 [facility] BLOOD INC INC VENIPUNCT URE INTERROGA 32581 [place] [facility] TION EVAL 6 HEART MAY REMOTE SPECIALIS </30 D CV TS, MNTR SYS INTERROGA 92371 [place] [facility] TION EVAL 6 HEART MAY REMOTE SPECIALIS </30 D TS, TECH REVIEW PROTHROMB 61847 [facility] KEEN IN TIME 6 [facility] INC INC COLLECTIO 30834 [facility] KEEN N VENOUS 6 [facility] BLOOD INC INC VENIPUNCT URE COLLECTIO 45848 [facility] KEEN N VENOUS 5 [facility] BLOOD INC INC VENIPUNCT URE PROTHROMB 70309 [facility] KEEN IN TIME 5 [facility] INC INC PROTHROMB 80360 [facility] KEEN IN TIME 5 [facility] INC INC COLLECTIO 18667 [facility] KEEN N VENOUS 5 [facility] BLOOD INC INC VENIPUNCT URE COLLECTIO 15996 [facility] KEEN N VENOUS 5 [facility] BLOOD INC INC VENIPUNCT URE PROTHROMB 79579 [facility] KEEN IN TIME 5 [facility] INC INC INTERROGA 41825 [facility] TION EVAL 5 HEART MAY REMOTE SPECIALIS </90 D TS, 1/2/FORENSICS TEAM DIRECTOR LEAD PM INTERROGA 64812 [facility] TION 5 HEART MAY REMOTE SPECIALIS </90 D TS, TECHNICIA N REVIEW COLLECTIO 99852 [facility] KEEN N VENOUS 5 [facility] BLOOD INC INC VENIPUNCT URE PROTHROMB 31986 [facility] KEEN IN TIME 5 [facility] INC INC PROTHROMB 15462 [facility] KEEN IN TIME 5 [facility] INC INC COLLECTIO 45062 [facility] KEEN N VENOUS 5 [facility] BLOOD INC INC VENIPUNCT URE COLLECTIO 75052 [facility] KEEN N VENOUS 5 [facility] BLOOD INC INC VENIPUNCT URE PROTHROMB 76563 [facility] KEEN IN TIME 5 [facility] INC INC PROTHROMB 82711 OSMANI KEEN IN TIME 5 [facility] INC INC COLLECTIO 98539 [facility] KEEN N VENOUS 5 [facility] BLOOD INC INC VENIPUNCT URE COLLECTIO 63118 [facility] KEEN N VENOUS 5 [facility] BLOOD INC INC VENIPUNCT URE PROTHROMB 67611 OSMANI KEEN IN TIME 5 [facility] INC INC PROTHROMB 01981 OSMANI KEEN IN TIME 5 [facility] INC INC COLLECTIO 45243 OSMANI KEEN N VENOUS 5 [facility] BLOOD INC INC VENIPUNCT URE RADEX 91936 [facility] ANKLE 5 MEDICAL COMPLETE IMAGING MINIMUM 3 ASS VIEWS RADEX 03321 [facility] ALL FOOT 5 MEDICAL COMPLETE IMAGING MINIMUM 3 [facility] V[facility]WS [facility] 93009 [facility] 5 MEDICAL LUMBOSACR IMAGING AL 2/3 ASS VIEWS RADEX 80742 [facility] WRIST 5 MEDICAL COMPLETE IMAGING MINIMUM 3 ASS VIEWS PROTHROMB 77713 OSMANI KEEN IN TIME 5 [facility] INC INC COLLECTIO 61799 OSMANI KEEN N VENOUS 5 [facility] BLOOD INC INC VENIPUNCT URE COLLECTIO 59916 OSMANI KEEN N VENOUS 5 [facility] BLOOD INC INC VENIPUNCT URE PROTHROMB 60423 OSMANI KEEN IN TIME 5 [facility] INC INC PROTHROMB 54940 OSMANI KEEN [facility] TIME 5 [facility] INC INC COLLECTIO 10113 OSMANI KEEN N VENOUS 5 [facility] BLOOD INC INC VENIPUNCT URE ECG 93641 OSMANI CERVANTES ROUTINE 5 [facility] W/LEAST P 12 LDS I&R ONLY ECG 02425 OSMANI KEEN ROUTINE 5 [facility] ECG INC INC W/LEAST 12 LDS TRCG ONLY W/O I&R ECG 41267 [facility] ROUTINE 5 [facility] ECG [facility] HOSP W/LEAST 12 LDS TRCG ONLY W/O I&R BASIC 48607 [facility] METABOLIC 5 [facility] PANEL [place] [address] [facility] MAGNESIUM 5 [facility] [place] [address] [facility] PROSTATE 5 [facility] SPECIFIC [facility]OS[facility] HOSP ANTIGEN TOTAL PROTHROMB 58481 [facility] IN TIME 5 [facility] NATRIURET 69949 [facility] IC 5 [facility] PEPTIDE [facility]OSP BLOOD 49483 [facility] COUNT 5 [facility] COMPLETE [facility]OS[facility] HOSP AUTOMATED DRUG 53498 [facility] SCREEN 5 [facility] QUANTITAT [facility] HOSP VERONICA DIGOXIN TOTAL ECG 09725 JAMEL OCHOA ROUTINE 5 HEART MAY ECG SPECIALIS W/LEAST TS, 12 LDS I&R ONLY LIPID 21352 [facility] PANEL 5 [facility] [place] [address] [facility] THYROID 5 [facility] STIMULATI [facility] HOSP NG HORMONE TSH URNLS DIP 17052 [facility]AL 5 [facility] STICK/TAB HOSP HOSP LET RGNT AUTO W/O MICROSCOP Y COLLECTIO 54684 [place] KEEN N VENOUS 5 [facility] BLOOD INC INC VENIPUNCT URE PROTHROMB 35641 OSMANI KEEN IN TIME 5 [facility] INC INC BASIC 59712 OSMANI KEEN METABOLIC 5 [facility] PANEL INC INC CALCIUM TOTAL ECHO 07338 [facility] Medicine MAR 2D W/WOM-MOD E COMPL SPEC&COLR D COLLECTIO 41862 [facility]EN N VENOUS 4 [facility] BLOOD INC INC VENIPUNCT URE PROTHROMB 57542 [facility] KEEN IN TIME 4 [facility] INC INC PROTHROMB 37869 OSMANI OSMANI IN TIME 4 [facility] INC INC BASIC 46024 O[facility]ANI KEEN METABOLIC 4 [facility] PANEL INC INC CALCIUM TOTAL PROTHROMB 68572 O[facility]ANI OSMANI IN TIME 4 [facility] INC INC INTERROG 93508 [place] [facility] EVAL F2F 4 HEART MAY 1/DUAL/ML SPECIALIS T LEADS TS, IMPLTBL DFB PROTHROMB 40036 [facility] KEEN IN TIME 4 [facility] INC INC BILIRUBIN 78427 [facility] KEEN DIRECT 4 [facility] INC INC HEMOGLOBI 12979 [facility] KEEN N 4 [facility] GLYCOSYLA INC INC PAUL A1C BLOOD 48764 [facility] KEEN COUNT 4 [facility] COMPLETE INC INC AUTO&AUTO DIFRNTL WBC PROTHROMB 48450 [facility]ANI KEEN IN TIME 4 [facility] INC INC LIPID 39107 [facility] KEEN PANEL 4 [place] [address] OSMANI KEEN FREE 4 [facility] [place] [address] OSMANI KEEN THYROID 4 [facility] STIMULATI INC INC NG HORMONE TSH COMPREHEN 38053 O[facility]ANI KEEN SIVE 4 [facility] METABOLIC INC INC PANEL PULMONARY 84311 [facility] STRESS 4 [facility]ING [facility] HOSP SIMPLE PROTHROMB 03846 [facility] IN TIME 4 [facility] H[facility]P DRUG 47212 [facility] SCREEN 4 [facility] QUANTITAT [facility]P HOSP VERONICA DIGOXIN TOTAL NATRIURET 56204 [facility] IC 4 [facility] PEPTIDE [facility] HOSP BASIC 25483 [facility] METABOLIC 4 [facility] PANEL [facility]OSP HOSP CALCIUM TOTAL PROTHROMB 39056 OSMANI KEEN IN TIME 4 [facility] INC INC PROTHROMB 89324 OSMANI KEEN IN TIME 4 [facility] INC INC PROTHROMB 42609 [facility] IN TIME 4 [facility]ANT HOSP HOSP NATRIURET 04768 [facility] IC 4 [facility] PEPTIDE [facility] HOSP BASIC 60862 [facility] METABOLIC 4 [facility] PANEL [facility] HOSP CALCIUM TOTAL PROTHROMB 96572 OSMANI KEEN IN TIME 4 [facility] 63479 [facility] DISCHARGE 4 AAR DAY CARDIOLOG MANAGEMEN Y AT CENT T 30 MIN/< RADIOLOGI 80244 [facility] C EXAM 4 RADIOLOGY FELIPE CHEST 2 ASSOC VIEWS FRONTAL&L [facility] 33463 [facility] DISCHARGE 4 HEART MAY DAY SPECIALIS MANAGEMEN TS, T 30 MIN/< SBSQ 69039 [facility] 4 HEART MAY CARE/DAY SPECIALIS 25 TS, MINUTES ECG 82781 [facility] ROUTINE 4 HEART MAY ECG SPECIALIS W/LEAST TS, 12 LDS I&R ONLY RADIOLOGI 82657 [facility] N. C EXAM 4 RADIOLOGY CHEST 2 ASSOC VIEWS FRONTAL&L ATERAL SBSQ 98581 [facility] 4 HEART MAY CARE/DAY SPECIALIS 25 TS, MINUTES SBSQ 71772 [facility] 4 HEART MAY CARE/DAY SPECIALIS 25 TS, MINUTES INSJ/RPLC 52578 [facility] MT PERM 4 AAR DFB CARDIOLOG W/TRNSVNS Y AT CENT LDS 1/DUAL CHMBR EPHYS 36122 [facility] EVAL PACG 4 AAR CVDFB CARDIOLOG LDS Y AT CENT W/TSTG OF PULSE GEN SBSQ 04631 [facility] 4 ORTH FABIANA CARE/DAY CARDIOLOG 25 Y AT CENT MINUTES RADIOLOGI 40580 [facility]AL CALLES C 4 RADIOLOGY III JAM EXAMINATI ASSOC ON CHEST SINGLE VIEW FRONTAL SBSQ 62042 [facility] 4 MEDICINE CARE/DAY SERVICES, 15 MINUTES SBSQ 59111 [facility] 4 ORTH FABIANA CARE/DAY CARDIOLOG 25 Y AT CENT MINUTES SBSQ 16831 [facility] 4 ORTH FABIANA CARE/DAY CARDIOLOG 25 Y AT CENT MINUTES ECG 78029 [facility] ROUTINE 4 HEART MAY ECG SPECIALIS W/LEAST TS, 12 LDS I&R ONLY GROUND A0425 [facility] STATUTE EMS EMS MILE SBSQ 32426 [facility] 4 PULMONARY YUR CARE/DAY & 35 CRITICAL MINUTES ECG 94085 [facility] ROUTINE 4 HEART MAY ECG SPECIALIS W/LEAST TS, 12 LDS I&R ONLY RADIOLOGI 78603 [facility] [place] [facility] C 4 RADIOLOGY EXAMINATI ON CHEST SINGLE VIEW FRONTAL INITIAL 98113 [facility] 4 HEART MAY CARE/DAY SPECIALIS 70 TS, MINUTES CRITICAL 01848 [facility] 4 ILL/INJUR ED PATIENT INIT 30-74 MIN AMB A0427 [facility] SERVICE 4 [facility] EM[facility]ENC[facility] EMS EMS TRANSPORT LEVEL 1 ECG 48953 [facility] ROUTINE 4 AAR ECG CARDIOLOG W/LEAST Y AT CENT 12 LDS W/I&R PROTHROMB 87884 [facility] KEEN IN TIME 4 [facility] INC INC NON-INVAS 09602 NIHARIKA GARRISON VERONICA 4 CARDIOTHO NATI PHYSIOLOG RACIC IC STUDY SURGI EXTREMITY 3 LEVLS ECHO 17257 [facility] TTHRC R-T 4 HEART MAY 2D SPECIALIS W/WOM-MOD TS, E COMPL SPEC&COLR D ECG 02204 [facility] ROUTINE 4 HEART MAY ECG SPECIALIS W/LEAST TS, 12 LDS W/I&R PROTHROMB 32249 [facility] KEEN IN TIME 4 [facility] INC INC RADIOLOGI 33228 NIHARIKA Serrano EXAM 4 CARDIOTHO NATI CHEST 2 RACIC VIEWS SURGI FRONTAL&L ATERAL TOBACCO 72087 [facility] USE 4 [facility]P INTERMEDI ATE 3-10 MINUTES NATRIURET 05-05-201 19181 [facility] IC 4 [facility] PEPTIDE [facility] HOSP DRUG 65112 [facility] SCREEN 4 [facility] QUANTITAT [facility]P HOSP VERONICA DIGOXIN TOTAL BASIC 65340 [facility] METABOLIC 4 [facility] PANEL [facility]OSP HOSP CALCIUM TOTAL PROTHROMB 07037 [employer], IN TIME 4 SENIOR ETL DEVELOPER SENIOR ETL DEVELOPER [facility] CO HOS PROTHROMB 93964 [employer], [employer], IN TIME 4 SENIOR ETL DEVELOPER SENIOR ETL DEVELOPER [facility] CO HOS TRANSITIO 79261 [facility] MAYTE RASHEED [facility] CARE 4 HEART AND MANAGE VASCULAR SRVC 14 I DAY DISCHARGE PROTHROMB 82714 [employer], IN TIME 4 SENIOR ETL DEVELOPER SENIOR ETL DEVELOPER [place] [address] [facility] MAGNESIUM 4 [facility] HOSP DRUG 22253 [facility] SCREEN 4 [facility] QUANTITAT [facility]OSP HOSP VERONICA DIGOXIN TOTAL NATRIURET 51735 [facility] IC 4 [facility] PEPTIDE [facility]P HOSP BLOOD 27917 [facility] COUNT 4 PROTESTANT PROT[facility] COMPLETE HOSP HOSP AUTOMATED BASIC 63323 [facility] METABOLIC 4 [facility] PANEL [facility]P HOSP CALCIUM TOTAL IIV3 44905 MANOLO MANOLO VACCINE 4 NUSRAT NUSRAT SPLIT VIRUS 0.5 ML DOSAGE IM USE PPSV23 41061 MANOLO MANOLO VACCINE 2 4 NUSRAT NUSRAT YRS OR OLDER FOR SUBQ/IM USE PROTHROMB 37829 [employer], IN TIME 4 SENIOR ETL DEVELOPER SENIOR ETL DEVELOPER [facility] HOS CO HOS SBSQ 77074 [facility] 4 CARE/DAY INFECTIOU 25 S DISEASE MINUTES RADIOLOGI 59618 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 C 4 RADIOLOGY FELIPE EXAMINATI ASSOC ON CHEST SINGLE VIEW FRONTAL RADIOLOGI 18791 [facility] 4 RADIOLOGY EXAMINATI ASSOC ON CHEST SINGLE VIEW FRONTAL SBSQ 85569 [facility] 4 ASHTYN CARE/DAY CARDIOLOG 25 Y AT CENT MINUTES SBSQ 92020 [facility] 4 ASHTYN CARE/DAY CARDIOLOG 25 Y AT [facility] 95935 [facility] 4 HEART MAY DAY SPECIALIS MANAGEMEN TS, T 30 MIN/< SBSQ 42353 [facility] 4 CARE/DAY INFECTIOU 25 S DISEASE MINUTES SBSQ 50387 [facility] 4 HEART MAY CARE/DAY SPECIALIS 35 TS, [address]BS[address]84 [facility] 4 PULMONARY S MALA CARE/DAY & 25 CRITICAL MINUTES SBSQ 62386 [facility] 4 CARE/DAY INFECTIOU 25 S DISEASE MINUTES RADIOLOGI 61764 [facility]. C 4 RADIOLOGY EXAMINATI ASSOC ON CHEST SINGLE VIEW FRONTAL SBSQ 76339 [facility] 4 CARE/DAY INFECTIOU 25 S DISEASE MINUTES SBSQ [address]246 [facility] 4 PULMONARY S MALA CARE/DAY & 35 CRITICAL MINUTES RADIOLOGI 19951 [facility] C 4 RADIOLOGY EXAMINATI ASSOC ON CHEST SINGLE VIEW FRONTAL SBSQ 08951 [facility] 4 CARE/DAY INFECTIOU 35 S DISEASE MINUTES SBSQ 60791 [facility] 4 PULMONARY ANAYA CARE/DAY & 35 CRITICAL MINUTES RADIOLOGI 17825 [facility] C 4 RADIOLOGY FELIPE EXAMINATI ASSOC ON CHEST SINGLE VIEW FRONTAL SBSQ 75184 [facility] 4 IV HEN CARE/DAY CARDIOLOG 25 Y AT [facility] CRITICAL 18504 [facility] 4 YIN ILL/INJUR INFECTIOU ED S DISEASE PATIENT INIT 30-74 MIN RADEX 73214 [facility] SHE ABDOMEN 1 4 RADIOLOGI C ANTEROPOS PROFESSIO TERIOR VIEW CRITICAL 88223 [facility] 4 YIN ILL/INJUR INFECTIOU ED S DISEASE PATIENT INIT 30-74 MIN SBSQ 34415 [facility] 4 IV HEN CARE/DAY CARDIOLOG 25 Y AT CENT MINUTES RADIOLOGI 16071 [facility] [place] C 4 RADIOLOGY FELIPE EXAMINATI ASSOC ON CHEST SINGLE VIEW FRONTAL SBSQ 19122 [facility] 4 PULMONARY ANAYA CARE/DAY & 35 CRITICAL MINUTES SBSQ 39391 [facility] 4 HEART MAY CARE/DAY SPECIALIS 35 TS, MINUTES RADIOLOGI 56489 [facility] CALLES J C 4 RADIOLOGY EXAMINATI ASSOC ON CHEST SINGLE VIEW FRONTAL RADEX 31223 [facility] ABDOMEN 1 4 RADIOLOGY FELIPE ASSOC ANTEROPOS TERIOR VIEW CRITICAL 23475 [facility] 4 YIN ILL/INJUR INFECTIOU ED S DISEASE PATIENT INIT 30-74 MIN CRITICAL 64472 [facility] 4 ILL/INJUR INFECTIOU ED S DISEASE PATIENT INIT 30-74 MIN SBSQ 89262 [facility] 4 HEART MAY CARE/DAY SPECIALIS 25 TS, MINUTES RADIOLOGI 89505 [facility] C 4 RADIOLOGY FELIPE EXAMINATI ASSOC ON CHEST SINGLE VIEW FRONTAL SBSQ 03668 [facility] 4 PULMONARY ANAYA CARE/DAY & 35 CRITICAL MINUTES SBSQ 41741 [facility] 4 PULMONARY ANAYA CARE/DAY & 35 CRITICAL MINUTES RADIOLOGI 06107 [facility] C 4 RADIOLOGY EXAMINATI ASSOC ON CHEST SINGLE VIEW FRONTAL CRITICAL 49117 [facility] 4 ILL/INJUR INFECTIOU ED S DISEASE PATIENT INIT 30-74 MIN RADIOLOGI 20400 [facility] SHULTZ ADA C 4 RADIOLOGY EXAMINATI ASSOC ON CHEST SINGLE VIEW FRONTAL SBSQ 59867 [facility] 4 CARE/DAY INFECTIOU 25 S DISEASE MINUTES (AORTO)CO 3611 [facility] 4 PROTESTANT PROTESTANT BYPASS OF HOSP HOSP ONE CORONARY ARTERY OPEN & 3523 [facility] 4 PROTESTANT PROTESTANT REPLACEMN HOSP HOSP T MITRL VALVE W/TISSUE GRAFT SBSQ 21660 [facility] 4 HEART MAY CARE/DAY SPECIALIS 35 TS, MINUTES SBSQ 21217 [facility] 4 HEART MAY CARE/DAY SPECIALIS 35 TS, MINUTES SBSQ 72578 [facility] 4 CARE/DAY INFECTIOU 25 S DISEASE MINUTES SBSQ 09782 [facility] 4 Y THO CARE/DAY ASSOCIATE 15 S OF DAI MINUTES RADIOLOGI 71444 [facility] MAR C 4 RADIOLOGY EXAMINATI ASSOC ON CHEST SINGLE VIEW FRONTAL RADIOLOGI 81953 [facility] C 4 RADIOLOGY EXAMINATI ASSOC ON CHEST SINGLE VIEW FRONTAL SBSQ 41652 [facility] 4 CARE/DAY INFECTIOU 25 S DISEASE MINUTES SBSQ 45070 [facility] 4 PULMONARY MAT CARE/DAY & 35 CRITICAL MINUTES ECG 87771 [facility] ROUTINE 4 [facility] ECG SPECIALIS W/LEAST TS, 12 LDS I&R ONLY ECG 00986 [facility] ROUTINE 4 HEART MAY ECG SPECIALIS W/LEAST TS, 12 LDS I&R ONLY ECHO 67566 [facility] TRANSESOP 4 [facility] HAG R-T ANESTHESI 2D W/PRB A IMG ACQUISJ I&R DOP 41462 [facility] ECHOCARD 4 [facility] COLOR ANESTHESI FLOW A VELOCITY MAPPING SBSQ 68415 [facility] 4 PULMONARY MAT CARE/DAY & 35 [place] [address] [facility] PAT SURG 4 MARSHA & PATHOLOGY DUBILIER GROSS&YIN ROSCOPIC EXAM INSERTION 12627 [facility] FLOW 4 [facility] DIRECTED ANESTHESI CATHETER A FOR MONITORIN G DOPPLER 02965 [facility] ECHOCARD 4 [facility] PULSE ANESTHESI WAVE A W/SPECTRA L DISPLAY RADIOLOGI 41364 [facility] 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 PO REPLACEME 16169 [facility] MELI NT MITRAL 4 CARDIOTHO NATI VALVE RACIC W/CARDIOP SURGI ULMONARY BYP NDSC SURG 10907 [facility] MELI 4 CARDIOTHO NATI W/VIDEO-A RACIC SSISTED SURGI HARVEST VEIN CABG CORONARY 03076 [facility] MELI ARTERY 4 CARDIOTHO NATI BYPASS 1 RACIC CORONARY SURGI VENOUS GRAFT SBSQ 66963 [facility] 4 Y SYE CARE/DAY ASSOCIATE 25 S OF DAI MINUTES ARTL 54992 [facility] CATHJ/CAN 4 [facility] NULJ ANESTHESI ANESTHESI MNTR/RENNER A A SFUSION SPX PRQ RPR BLOOD 77278 [facility] MELI VESSEL 4 CARDIOTHO NATI DIRECT RACIC LOWER SURGI EXTREMITY INITIAL 48862 [facility] 4 Y SYE CARE/DAY ASSOCIATE 70 S OF DAI MINUTES SBSQ 61324 [facility] 4 CARE/DAY INFECTIOU 25 S DISEASE MINUTES RADIOLOGI 33514 CEN[facility]AL CALLES J C 4 RADIOLOGY EXAMINATI ASSOC ON CHEST SINGLE VIEW FRONTAL SBSQ 03441 [facility] 4 PULMONARY NUSRAT CARE/DAY & 35 CRITICAL MINUTES ECG 80649 [facility] 4 HEART MAY ECG SPECIALIS W/LEAST TS, 12 LDS I&R ONLY PRQ 93716 [facility] TRLUML 4 HEART MAY CORONRY SPECIALIS TOT TS, OCCLUS REVASC ID ONE VSL INSERTION 3768 [facility] PERQ 4 [facility] EXTERNAL HOSP HOSP HEART ASSIST DEVICE CONT 9672 [facility] INVASIVE 4 PROTESTANT [facility]OTESTANT [facility] VENT HOSP HOSP 96 CONSECUTI VE HRS/MORE COMBINED 3723 [facility] RIGHT&LEF 4 [facility]ANT PR[facility] T HEART HOSP HOSP CARD CATHETERI ZATION INSJ PERQ 89981 [facility] VAD 4 HEART MAY W/IMAGING SPECIALIS ARTERY TS, ACCESS ONLY ENDOLUMIN 10069 [facility] AL 4 HEART MAY CORONARY SPECIALIS IVUS OCT TS, I&R INITIAL VESSEL R & L HRT 96399 [facility] CATH 4 HEART MAY WINJX HRT SPECIALIS ART& L TS, VENTR IMG RADIOLOGI 83892 [facility]. C 4 RADIOLOGY EXAMINATI ASSOC ON CHEST SINGLE VIEW FRONTAL CRITICAL 17232 [facility] 4 PULMONARY MAT ILL/INJUR & ED CRITICAL PATIENT INIT 30-74 MIN ARTL 23434 [facility] TRINY CATHJ/CAN 4 PULMONARY CELINA NULJ AND MNTR/RENNER CRITIC SFUSION SPX PRQ RADIOLOGI 41603 [facility] 4 KLEVER EXAMINATI RADIOLOGY ON CHEST ASSOCIAT SINGLE VIEW FRONTAL ECG 40371 SHEA PALENCIA PALENCIA SHEA ROUTINE 4 MD ECG CONSULTIN W/LEAST G SRV 12 LDS I&R ONLY COLLECTIO 13653 CARID[facility] MCLEAN N VENOUS 4 [facility] VENIPUNCT URE BLOOD 57328 [facility] COUNT 4 [facility] AUTOMATED ECG 72129 [facility] 4 [facility] W/LEAST 12 LDS TRCG ONLY W/O I&R BASIC 04120 [place] [facility] METABOLIC 4 [facility] CALCIUM TOTAL URINALYSI 19410 [facility], MHC INC, S 4 SENIOR ETL DEVELOPER SENIOR ETL DEVELOPER QUAL/SEMI [facility] BOONES QUANT CO HOS CO HOS EXCEPT IMMUNOASS AYS BLOOD 04932 [facility], MHC INC, COUNT 4 SENIOR ETL DEVELOPER SENIOR ETL DEVELOPER COMPLETE [facility] AUTO&AUTO CO HOS CO HOS DIFRNTL WBC LIPID 86117 [facility], MHC INC, PANEL 4 SENIOR ETL DEVELOPER SENIOR ETL DEVELOPER [place] [address] [facility], [facility], THYROID 4 SENIOR ETL DEVELOPER SENIOR ETL DEVELOPER STIMULATI [facility] BOONES NG [place] [address] [facility], [facility], FREE 4 SENIOR ETL DEVELOPER SENIOR ETL DEVELOPER THYROXINE [facility] CO HOS CO HOS COMPREHEN 73561 [employer], SIVE 4 SENIOR ETL DEVELOPER SENIOR ETL DEVELOPER METABOLIC [facility] QUINTANILLA PANEL CO HOS CO HOS DRUG SCR G0434 [employer], [employer], NOT 4 SENIOR ETL DEVELOPER SENIOR ETL DEVELOPER CHROMATOG [facility] QUINTANILLA RAPHIC; CO HOS CO HOS ANY NUMBER PT ENC RADIOLOGI 01032 [facility] C EXAM 4 EIDER DAVID CHEST 2 RADIOLOGY VIEWS ASSOCIAT FRONTAL&L ATERAL RADEX 09243 [employer], [employer], SPINE 4 SENIOR ETL DEVELOPER SENIOR ETL DEVELOPER LUMBOSACR [facility] QUINTANILLA AL CO HOS CO HOS MINIMUM 4 VIEWS Encounters Encounter Start End Date Code Location Performer Type Date HOSPITAL [facility] - 6 6 [facility] 6 6 [facility] 64185 [facility] 6 6 PHYSICIAN T VISIT S GROUP 10 MINUTES [facility] 55703 [facility] 6 6 PHYSICIAN T NEW 30 S GROUP MINUTES [facility] 6 6 [facility] T OFFICE 08735 [facility] 6 6 [facility] T VISIT URGENT 15 TREAT MINUTES OFFICE 97976 [facility] 6 6 [facility] T VISIT URGENT 25 TREAT MINUTES OFFICE 47564 [facility] 6 6 [facility] T VISIT URGENT 25 TREAT MINUTES HOSPITAL OSMANI - 6 6 [facility] 83580 [facility] 6 6 HEART MAY T VISIT SPECIALIS 15 TS, MINUTES HOSPITAL O[facility] - 6 6 [facility] OSMANI - 6 6 [facility] OSMANI - 6 6 [facility] OUTPATIEN INC T HOSPITAL OSMANI - 6 6 [facility] OSMANI - 6 6 [facility] INC T OFFICE 75204 JAMEL [facility] 6 6 HEART MAY T VISIT SPECIALIS 25 TS, [facility] OSMANI - 6 6 [facility] OSMANI - 6 6 [facility] O[facility] - 6 6 [facility] O[facility] - 6 6 [facility] OSM[facility] - 6 6 [facility] INC T OFFICE 60345 [facility] HALE[facility] 6 6 [facility] T VISIT URGENT 25 TREAT MINUTES [facility] OSMANI - 6 6 [facility] OSM[facility] - 5 5 [facility] O[facility] - 5 5 [facility] OSMANI - 5 5 [facility] OUTPATIEN INC T OFFICE 11537 [facility]N [facility]ARD[facility] 5 5 MD DANIEL, T VISIT PSC 10 MINUTES [facility]SM[facility] - 5 5 [facility] O[facility] - 5 5 [facility] O[facility] - 5 5 [facility] OSM[facility] - 5 5 [facility] OUTPATIEN INC T OFFICE 99424 NEIL KATE 5 5 T [facility] 30 MINUT[facility] - 5 5 [facility] OSM[facility] - 5 5 [facility] OSMANI - 5 5 [facility] EMERGENCY 56734 OSMANI 5 5 [facility] VISIT LOW/MODER SEVERITY EMERGENCY 85760 DARREN BANKS, 5 5 JR RAJESH MENA [facility] VISIT HIGH/URGE NT SEVERITY HOSPITAL OSMANI - 5 5 [facility] OSMANI - 5 5 [facility] OSMANI - 5 5 [facility] OSMANI - 5 5 [facility] OUTPATIEN [facility] CENTRAL - 5 5 PROTESTANT OUTPATIEN [facility] OFFICE 93595 [facility] 5 5 HEALTH T VISIT MEDICAL 25 GROUP [facility] OSMANI - 5 5 MEM H[facility] 4 4 [facility] - 4 4 [facility] - 4 4 [facility] OFFICE [id number] [facility] 4 4 HEART MAY T [facility]ISIT SPECIAL 25 , [facility] - 4 4 [facility] - 4 4 [facility] - 4 4 [facility] OUTPATIEN [facility] - 4 4 [facility]EN [facility] 4 4 [facility] - 4 4 [facility] OFFICE [id number] [facility] MAYTE RASHEED OUTPATIEN 4 4 HEART AND T VISIT VASCULAR 25 I MINUTES [facility] - 4 4 [id number] V[facility] PHYS PSC HIGH SEVERITY& THREAT FUNCJ OFFICE 40430 JAMEL BRIDGES OUTPATIEN 4 4 AAR T VISIT CARDIOLOG 25 Y AT CENT [facility] - 4 4 [facility] [id number] JAMEL OCHOA OUTPATIEN 4 4 HEART MAY T VISIT SPECIALIS 25 TS, MINUTES [facility] - 4 4 [facility] OUTPATIEN [facility] - 4 4 SENIOR ETL DEVELOPER OUTPATIEN [facility] - 4 4 SENIOR ETL DEVELOPER OUTPATIEN [facility] OFFICE 67804 [facility] SABAS OUTPATIEN 4 4 HEART AND TRA T VISIT VASCULAR 25 I MINUTES [facility] - 4 4 SENIOR ETL DEVELOPER OUTPATIEN [facility] - 4 4 [facility] OUT[facility] HOSP T OFFICE 96980 MANOLO FRENCH OUTPATIEN 4 4 NUSRAT NUSRAT T VISIT 15 MINUTES [facility]OSP[facility] - 4 4 SENIOR ETL DEVELOPER OUTPATIEN [facility] - 4 4 [facility] OFFICE [id number] MARY LOU BARRETO JR CONSULTAT 4 4 JOSE ANTONIO JOSE ANTONIO ION NEW/ESTAB PATIENT 60 MIN [facility] - 4 4 [facility] - 4 4 [facility] OFFICE 76969 MANOLO FRENCH [facility] 4 4 NUSRAT NORTON 30 MINUTES
--- OUTSIDE RECORDS SUMMARY | 2016-11-20 15:50 | External Medical Summary Rpt | CCD ---
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 Name Role Phone FABIOLA MAR, FABIOLA MAR Unavailable Unavailable ALLRAN JR JOSE ANTONIO, ALLRAN Unavailable Unavailable JR JOSE ANTONIO JOSLYN SANCHEZ MD, PSC, Unavailable Unavailable JOSLYN SANCHEZ MD, PSC [facility] Unavailable Unavailable [facility], [facility] Unavailable Unavailable MEDICAL GROUP, [facility] Unavailable Unavailable VASCULAR I, [facility] & Unavailable Unavailable CRITICAL, [facility] BESSON, BESSON Unavailable Unavailable BESSON DAT, BESSON Unavailable Unavailable DAT HORNE ALL, HORNE ALL Unavailable Unavailable [facility] Unavailable Unavailable HOSPITAL, [facility] BUX ANJ, BUX ANJ Unavailable Unavailable SHAYLA ALA, SHAYLA Unavailable Unavailable ALA [facility], Unavailable Unavailable [facility] Unavailable Unavailable PHYS PSC, [facility] [place] Unavailable Unavailable [facility], [facility] [place] [facility] Unavailable Unavailable [facility], [facility] MAYTE KATHYA, MAYTE KATHYA Unavailable Unavailable [facility], Unavailable Unavailable [facility] PALENCIA SHEA, PALENCIA SHEA Unavailable Unavailable [...] Unavailable SAAD JULIEN, Unavailable Unavailable OSMANI JULIEN [facility] Unavailable Unavailable INC, [facility] Unavailable Unavailable HOSPITAL P, [facility] [place] KLEVER, WOMACK Unavailable Unavailable KLEVER YULIANA FERNANDO, Unavailable Unavailable YULIANA FERNANDO [facility], Unavailable Unavailable [facility] SABAS TAYLOR, HOLLULI Unavailable Unavailable [facility] FABIANA, Unavailable Unavailable [facility] Unavailable Unavailable SERVICES,, [facility], SUDHA NAN, SUDHA Unavailable Unavailable NAN BERTHA SYE, BERTHA Unavailable Unavailable SYE HERRERA SHE, HERRERA SHE Unavailable Unavailable [place] FELIPE, DAVENPORT Unavailable Unavailable [facility] Unavailable Unavailable [facility], [facility] Unavailable Unavailable AT [facility], [facility] HEART Unavailable Unavailable SPECIALISTS,, [facility], [facility] Unavailable Unavailable DISEASE, [facility] MANOLO NUSRAT, MANOLO Unavailable Unavailable NUSRAT MANOLO NUSRAT, MANOLO Unavailable Unavailable N[facility]RAT [facility] Unavailable Unavailable ASSOCIAT, [facility], Unavailable Unavailable [facility] Unavailable Unavailable [facility], [facility] MIEDLER YIN, MIEDLER Unavailable Unavailable YIN MELI NATI, Unavailable Unavailable MELI DAMIAN ROJAS NUSRAT, ROJAS Unavailable Unavailable [facility] Unavailable Unavailable URGENT TREAT, [facility] Unavailable Unavailable EMS, [facility] IVETT TOD, IVETT TOD Unavailable Unavailable [...] Diagnosis DOS Provider Status I509 HEART 02-01-2016 [facility] FAILURE HEART UNSPECIFIED SPECIALISTS , K4091 UNILAT 10-26-2015 [facility]AL [facility] HERNIA W/O INC OBST/GANGRE NE RECUR Z7901 FDC 10-26-2015 [facility] CURRENT USE [facility] OF INC ANTICOAGULA NTS K4021 BILAT 10-10-2015 [facility] INGUINAL PHYSICIANS HERNIA W/O GROUP OBST OR GANGRENE RECUR K469 UNS 10-10-2015 [facility] ABDOMINAL [facility] HERNIA W/O HOSPITAL P OBSTRUCTION OR GANGRENE F51519 ENCOUNTER 10-10-2015 [facility] FOR OTHER [facility] PREPROCED HOSPITAL P AL EXAMINATION Z5181 ENCOUNTER 10-10-2015 [facility] P DRUG LEVEL MONITORING Z952 PRESENCE OF 10-10-2015 [facility] PROSTHETIC [facility] HEART INC VALVE R312 OTHER 10-01-2015 [facility] HEMATURIA [facility] R319 HEMATURIA 10-01-2015 [facility] [place] UNSPECIFIED RADIOLOGY G2581 RESTLESS 09-06-2015 [facility] LEGS [facility] SYNDROME URGENT TREAT L247 IRRITANT 08-21-2015 [facility] CONTACT [facility] DERMATITIS URGENT D/T PLANTS TREAT NO FOOD R3915 URGENCY OF 08-21-2015 [facility] URINATION [facility] URGENT TREAT 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 , FAILURE I2510 ASHD JICARILLA APACHE NATION 05-07-2015 [facility] CORONARY HEART ARTERY W/O SPECIALISTS ANGINA , PECTORIS 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 SPECIALISTS , I472 VENTRICULAR 05-07-2015 [facility] HEART TACHYCARDIA SPECIALISTS , I348 OTHER 05-04-2015 [facility] 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 I340 NONRHEUMATI 04-13-2015 [facility] C MITRAL [facility] VALVE INC INSUFFICIEN CY B001 HERPESVIRAL 02-27-2015 [facility] VESICULAR [facility] DERMATITIS URGENT TREAT K5792 DIVERTICULI 02-27-2015 [facility] PART [facility] UNS W/O URGENT PERF/ABSC TREAT W/O BLEED R1032 LEFT LOWER 02-27-2015 [facility] QUADRANT [facility] PAIN URGENT TREAT R110 NAUSEA 02-27-2015 [facility] URGENT TREAT R42 DIZZINESS 02-27-2015 [facility] GIDDINESS URGENT TREAT 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 INC I495 SICK SINUS 12-01-2014 [facility] SYNDROME HEART SPECIALISTS , R002 PALPITATION 12-01-2014 [facility] S HEART SPECIALISTS , 57640 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 BUX, LUMBAR/LUMB , PSC OSACRAL INTERVERTEB RAL DISC 7244 THORACIC/CHERRY 10-31-2014 CAROLANN LUND MD, PSC NEURITIS/RA DICULITIS UNSPEC 4240 MITRAL 10-18-2014 [facility] VALVE [facility] DISORDERS INC V433 HEART VALVE 10-18-2014 [facility] REPLACED [facility] BY OTHER INC MEANS V5861 LONG-TERM 10-18-2014 [facility] (CURRENT) [facility]OS[facility] USE OF INC ANTICOAGULA NTS 63900 PRIMARY 07-15-2014 [facility] LOCALIZED [facility] OSTEOARTHRO INC SIS FOREARM 32273 PAIN IN 07-15-2014 [place] [facility] 90195 PAIN IN 07-15-2014 [place] [facility] ANKLE AND IMAGING ASS FOOT 7242 LUMBAGO 07-15-2014 [facility] 7295 PAIN IN 07-15-2014 [place] [facility] TISSUES OF IMAGING ASS LIMB 53159 UNSPECIFIED 07-15-2014 [facility] SITE OF [facility] ANKLE INC SPRAIN AND STRAIN 4271 PAROXYSMAL 04-19-2014 [facility] P TACHYCARDIA 2724 OTHER AND 04-11-2014 [facility] UNSPECIFIED [facility] HYPERLIPIDE ADARSH 4011 ESSENTIAL 04-11-2014 [facility], [facility] 4019 UNSPECIFIED 04-11-2014 [facility] ESSENTIAL [facility] HYPERTENSIO HOSP N 02872 CORONARY 04-11-2014 [facility] HEALTH OSIS JICARILLA APACHE NATION MEDICAL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 4254 OTHER 04-11-2014 [facility] PRIMARY [facility] CARDIOMYOPA HOSP OTIS 4280 CONGESTIVE 04-11-2014 [facility] HE[facility] HEART FAILURE SPECIALISTS UNSPECIFIED , 45217 CHRONIC 04-11-2014 [facility] SYSTOLIC [facility] FAILURE V5866 LONG-TERM 04-11-2014 [facility] USE OF [facility] V5869 LONG-TERM 04-11-2014 [facility] (CURRENT) [facility] USE OF HOSP OTHER MEDICATIONS 4148 OTHER SPEC 03-08-2014 [facility] FORMS [facility] CHRONIC INC ISCHEMIC HEART DISEASE 4242 TRICUSPID 02-20-2014 [facility] VALVE Medicine DISORDERS SPEC NONRHEUMATI C 412 OLD 11-14-2013 [facility] MYOCARDIAL HEART INFARCTION SPECIALISTS , V1749 FAMILY 11-14-2013 [facility] HISTORY OF HEART OTHER SPECIALISTS CARDIOVASCU , LAR DISEASES 4010 ESSENTIAL 11-01-2013 [facility] HYPERTENSIO [facility] N, INC MALIGNANT 13234 OTHER 11-01-2013 [facility] MALAISE AND [facility] FATIGUE INC 6959 UNSPECIFIED 08-23-2013 [facility] C[facility]IOLOGY ERYTHEMATOU AT CENT S CONDITION 5110 [...] [facility] ADJUSTMENT RADIOLOGY OF CARDIAC ASSOC PACEMAKER 45053 OTHER 08-15-2013 [facility] SPECIFIED CARDIOLOGY CARDIAC AT CENT DYSRHYTHMIA S V5881 FITTING AND 08-14-2013 [facility] ADJUSTMENT [facility]IOLOG[facility] OF ASSOC VASCULAR CATHETER 86207 DIAB W/O 08-13-2013 HOSPITAL COMP TYPE MEDICINE II/UNS NOT SERVICES, STATED UNCNTRL 20146 ACUT MS 08-11-2013 [facility] INFEROLAT WALL INIT EPIS CARE 40136 COR 08-11-2013 [facility] ATHEROSLERO PULMONARY & UNSPEC CRITICAL TYPE VESSEL JICARILLA APACHE NATION/ALEK T 7804 DIZZINESS 08-11-2013 [facility] [place] AND RADIOLOGY GIDDINESS 63425 NAUSEA 08-02-2013 [facility] ALONE HEART AND VASCULAR I 4439 UNSPECIFIED 07-12-2013 [facility] PERIPHERAL CARDIOTHORA VASCULAR CIC SURGI DISEASE 43479 ABNORMAL 06-27-2013 [place] [facility] PROFILE INC 24648 CORONARY 05-16-2013 [facility] ATHEROSCLER HEART AND OSIS OF VASCULAR I ARTERY BYPASS GRAFT 90872 ACUTE 05-16-2013 [facility] SYSTOLIC HEART AND HEART VASCULAR I FAILURE 4589 UNSPECIFIED 05-16-2013 [facility] HEART AND HYPOTENSION VASCULAR I 15825 HTN CKD UNS 04-26-2013 [facility] W/CKD [facility] STAGE I HOSP THRU STAGE IV/UNS 53523 UNSPECIFIED 04-26-2013 [facility] SYSTOLIC [facility] FAILURE 5859 CHRONIC 04-26-2013 [facility] KIDNEY [facility] DISEASE HOSP UNSPECIFIED V5863 LONG-TERM 04-26-2013 [facility] USE OF [facility] ANTIPLATELE HOSP T/ANTITHROM BOTIC 28260 LOSS OF 04-25-2013 MANOLOJONY SILVERIO WEIGHT 37219 OTH COMPS 04-25-2013 MANOLO SILVERIO DUE OTH [...] L RADIOLOGY AORTOCORONA ASSOC RY BYPASS STATUS 07039 LEUKOCYTOSI 04-14-2013 JAMEL S INFECTIOUS UNSPECIFIED DISEASE 00725 ACUT 04-14-2013 [facility] MYOCARD INFECTIOUS INFARCT UNS DISEASE SITE EPIS CARE UNS 4111 INTERMEDIAT 04-14-2013 J[facility] E CORONARY HEART SYNDROME SPECIALISTS , 23631 ACUTE 04-14-2013 [facility] RESPIRATORY INFECTIOUS FAILURE DISEASE 5849 ACUTE 04-14-2013 [facility] KIDNEY INFECTIOUS FAILURE DISEASE UNSPECIFIED 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 84023 OTHER 04-12-2013 [facility] DISEASES OF RADIOLOGY LUNG NOT ASSOC ELSEWHERE CLASSIFIED V5882 ENCOUNTER 04-12-2013 [facility] FITTING&ADJ RADIOLOGY ASSOC NON-VASCULA R CATHETER NEC 4210 ACUTE AND 04-09-2013 [facility] SUBACUTE INFECTIOUS BACTERIAL DISEASE ENDOCARDITI S 75151 FEVER 04-09-2013 [facility] UNSPECIFIED INFECTIOUS DISEASE V5873 AFTERCARE 04-09-2013 [facility] FOLLOWING RADIOLOGY SURGERY ASSOC CIRC SYSTEM NEC V4589 OTHER 04-08-2013 [facility] POSTSURGICA RADIOLOGY L STATUS ASSOC OTHER 486 PNEUMONIA, 04-07-2013 [facility] ORGANISM RADIOLOGY UNSPECIFIED ASSOC 05344 ENDOCARDITI 04-06-2013 [facility] S VALVE RADIOLOGY UNSPECIFIED ASSOC UNSPECIFIED CAUSE 17497 OTHER 04-04-2013 [facility] NONSPECIFIC RADIOLOGY ABNORMAL ASSOC FINDING OF LUNG FIELD 4149 UNSPECIFIED 04-02-2013 [facility] CHRONIC CARDIOTHORA ISCHEMIC CIC SURGI HEART DISEASE 28369 HEMORRHAGE 04-02-2013 [facility] COMPLICATIN CARDIOTHORA G A CIC SURGI PROCEDURE NEC 0389 UNSPECIFIED 03-31-2013 [facility] SEPTICEMIA [facility] 12950 METABOLIC 03-31-2013 [facility] ENCEPHALOPA [facility] THY HOSP 51492 ACUT MS 03-31-2013 [facility] ANTEROLAT PULMONARY & WALL EPIS CRITICAL CARE UNS 59271 ACUT 03-31-2013 [facility] MYOCARD [facility] INFARCT OTH HOSP INF WALL INIT EPIS CARE 62390 ACUTE 03-31-2013 [facility] RESPIRATORY [facility] FAILURE HOSP [facility] TRAUMA & SURGERY 64632 UNSPECIFIED 03-31-2013 [facility] SHOCK PULMONARY & CRITICAL 514 PULMONARY 03-30-2013 [facility] HYPOSTASIS 32188 ING HERNIA 03-28-2013 [place] [facility] OBSTRUCTION /GANGREN BILAT V7283 OTHER 03-28-2013 [place] SPECIFIED [facility] PRE[facility]I [facility]PITAL VE EXAMINATION 4293 CARDIOMEGAL 03-21-2013 [facility] 32771 ING NERISSA 03-21-2013 [facility], W/O MENTION DESIGN ENG [facility] CO OBST/GANGRE HOS N UNILAT/UNSP EC 7245 UNSPECIFIED 03-21-2013 [facility], BACKACHE DESIGN ENG [facility] HOS 23169 OTHER 03-16-2013 MAN[facility] SILVERIO CHRONIC PAIN Medications [...] Procedure DOS Code Location Performer Comment INTERROGA 67536 [facility] TION EVAL 6 HEART REMOTE SPECIALIS </30 D CV TS, MNTR SYS INTERROGA 06176 [facility] TION EVAL 6 HEART REMOTE SPECIALIS </30 D TS, TECH REVIEW INTERROGA 05497 [facility] TION EVAL 6 HEART MAY REMOTE SPECIALIS </30 D TS, TECH REVIEW INTERROGA 82653 [facility] TION EVAL 6 HEART MAY REMOTE SPECIALIS </30 D CV TS, MNTR SYS INTERROGA 70924 [facility] TION EVAL 6 HEART MAY REMOTE SPECIALIS </30 D CV TS, MNTR SYS INTERROGA 66763 [facility] TION EVAL 6 HEART MAY REMOTE SPECIALIS </30 D TS, TECH REVIEW INTERROGA 66892 [facility] TION EVAL 6 HEART MAY REMOTE SPECIALIS </30 D TS, TECH REVIEW INTERROGA 65170 [facility] TION EVAL 6 HEART MAY REMOTE SPECIALIS </30 D CV TS, MNTR SYS RPR RECRT 35889 [facility] KEEN INGUINAL 6 MEM [facility] HERNIA INC INC ANY AGE REDUCIBLE ECG 07418 [facility] KEEN ROUTINE 6 [facility] ECG INC INC W/LEAST 12 LDS TRCG ONLY W/O I&R ECG 35870 [facility] CERVANTES ROUTINE 6 [facility] W/LEAST P 12 LDS I&[place] [address] [facility] [place] HUSAM ABDOMEN 6 RADIOLOGY RHO W/O CONTRAST MATERIAL INTERROGA 70788 [facility] OCHO[facility] TION EVAL 6 HEART MAY REMOTE SPECIALIS </30 D TS, TECH REVIEW INTERROGA 32805 [place] OCHOA TION EVAL 6 HEART MAY REMOTE SPECIALIS </30 D CV TS, MNTR SYS BLOOD 84009 [facility] COLMENARESOLAS OCCULT [address] [facility] URGENT URGENT E ACTV TREAT TREAT QUAL FECES 1 DETER INTERROGA 62094 [facility] TION EVAL 6 HEART MAY REMOTE SPECIALIS </30 D CV TS, MNTR SYS INTERROGA 32939 [facility] TION EVAL 6 HEART MAY REMOTE SPECIALIS </30 D TS, TECH REVIEW COLLECTIO 84895 [facility] KEEN N VENOUS 6 [facility] BLOOD INC INC VENIPUNCT URE PROTHROMB 57723 [facility] KEEN IN TIME 6 [facility] INC INC PROTHROMB 18825 [facility] KEEN IN TIME 6 [facility] INC INC COLLECTIO 98115 [facility] KEEN N VENOUS 6 [facility] BLOOD INC INC VENIPUNCT URE INTERROGA 55945 [facility] TION EVAL 6 HEART MAY REMOTE SPECIALIS </30 D CV TS, MNTR SYS INTERROGA 08348 [facility] TION EVAL 6 HEART MAY REMOTE SPECIALIS </30 D TS, TECH REVIEW PROTHROMB 07311 [facility] KEEN IN TIME 6 [facility] INC INC COLLECTIO 02405 [facility] KEEN N VENOUS 6 [facility] BLOOD INC INC VENIPUNCT URE COLLECTIO 53367 [facility] KEEN N VENOUS 6 [facility] BLOOD INC INC VENIPUNCT URE PROTHROMB 56543 [facility] KEEN IN TIME 6 [facility] INC INC INTERROGA 74652 [place] [facility] TION EVAL 6 HEART MAY REMOTE SPECIALIS </30 D TS, TECH REVIEW INTERROGA 07859 [place] [facility] TION EVAL 6 HEART MAY REMOTE SPECIALIS </30 D CV TS, MNTR SYS COLLECTIO 94914 [facility] KEEN N VENOUS 6 [facility] BLOOD INC INC VENIPUNCT URE PROTHROMB 66658 [facility] KEEN IN TIME 6 [facility] INC INC PROTHROMB 56259 [facility] KEEN IN TIME 6 [facility] INC INC COLLECTIO 73222 [facility] KEEN N VENOUS 6 [facility] BLOOD INC INC VENIPUNCT URE INTERROGA 19689 [place] [facility] TION EVAL 6 HEART MAY REMOTE SPECIALIS </30 D CV TS, MNTR SYS INTERROGA 08380 [place] [facility] TION EVAL 6 HEART MAY REMOTE SPECIALIS </30 D TS, TECH REVIEW PROTHROMB 88875 [facility] KEEN IN TIME 6 [facility] INC INC COLLECTIO 71725 [facility] KEEN N VENOUS 6 [facility] BLOOD INC INC VENIPUNCT URE COLLECTIO 97482 [facility] KEEN N VENOUS 6 [facility] BLOOD INC INC VENIPUNCT URE PROTHROMB 24422 [facility] KEEN IN TIME 6 [facility] INC INC PROTHROMB 66779 [facility] KEEN IN TIME 6 [facility] INC INC COLLECTIO 59945 [facility] KEEN N VENOUS 6 [facility] BLOOD INC INC VENIPUNCT URE INTERROGA 07643 [place] [facility] TION EVAL 6 HEART MAY REMOTE SPECIALIS </30 D CV TS, MNTR SYS COLLECTIO 79822 [facility] KEEN N VENOUS 6 [facility] BLOOD INC INC VENIPUNCT URE PROTHROMB 39148 [facility] KEEN IN TIME 6 [facility] INC INC INTERROGA 08361 [place] [facility] TION EVAL 6 HEART MYA REMOTE SPECIALIS </30 D TS, TECH REVIEW PROTHROMB 73412 [facility] KEEN IN TIME 6 [facility] INC INC COLLECTIO 71854 [facility] KEEN N VENOUS 6 [facility] BLOOD INC INC VENIPUNCT URE INTERROGA 34967 [place] [facility] TION EVAL 6 HEART MAY REMOTE SPECIALIS </30 D CV TS, MNTR SYS INTERROGA 93318 [place] [facility] TION EVAL 6 HEART MAY REMOTE SPECIALIS </30 D TS, TECH REVIEW PROTHROMB 70841 [facility] KEEN IN TIME 6 [facility] INC INC COLLECTIO 36585 [facility] KEEN N VENOUS 6 [facility] BLOOD INC INC VENIPUNCT URE COLLECTIO 93615 [facility] KEEN N VENOUS 5 [facility] BLOOD INC INC VENIPUNCT URE PROTHROMB 29243 O[facility] KEEN IN TIME 5 [facility] INC INC PROTHROMB 77495 [facility] KEEN IN TIME 5 [facility] INC INC COLLECTIO 10915 [facility] KEEN N VENOUS 5 [facility] BLOOD INC INC VENIPUNCT URE COLLECTIO 92046 [facility] KEEN N VENOUS 5 [facility] BLOOD INC INC VENIPUNCT URE PROTHROMB 83789 O[facility] KEEN IN TIME 5 [facility] INC INC INTERROGA 51623 [facility] TION EVAL 5 HEART MAY REMOTE SPECIALIS </90 D TS, 1/2/1ST PRESSMAN LEAD PM INTERROGA 37710 [facility] TION 5 HEART MAY REMOTE SPECIALIS </90 D TS, TECHNICIA N REVIEW COLLECTIO 89371 [facility] KEEN N VENOUS 5 [facility] BLOOD INC INC VENIPUNCT URE PROTHROMB 91362 [facility] KEEN IN TIME 5 [facility] INC INC PROTHROMB 01058 [facility] KEEN IN TIME 5 [facility] INC INC COLLECTIO 44797 [facility] KEEN N VENOUS 5 [facility] BLOOD INC INC VENIPUNCT URE COLLECTIO 94971 [facility] KEEN N VENOUS 5 [facility] BLOOD INC INC VENIPUNCT URE PROTHROMB 70775 O[facility] KEEN IN TIME 5 [facility] INC INC PROTHROMB 43129 [facility]ANI KEEN IN TIME 5 [facility] INC INC COLLECTIO 12247 [facility] KEEN N VENOUS 5 [facility] BLOOD INC INC VENIPUNCT URE COLLECTIO 40382 [facility] KEEN N VENOUS 5 [facility] BLOOD INC INC VENIPUNCT URE PROTHROMB 60312 OSMANI KEEN IN TIME 5 [facility] INC INC PROTHROMB 01512 [facility]SMANI KEEN IN TIME 5 [facility] INC INC COLLECTIO 09130 [facility] KEEN N VENOUS 5 [facility] BLOOD INC INC VENIPUNCT URE RADEX 36616 [facility] ANKLE 5 MEDICAL COMPLETE IMAGING MINIMUM 3 ASS VIEWS RADEX 09533 [facility] FOOT 5 MEDICAL COMPLETE IMAGING MINIMUM 3 ASS VIEWS RADEX 54069 [facility] SPINE 5 MEDICAL LUMBOSACR IMAGING AL 2/3 ASS VIEWS RADEX 98145 [facility] WRIST 5 MEDICAL COMPLETE IMAGING MINIMUM 3 ASS VIEWS PROTHROMB 25239 [facility]SM[facility] KEEN IN TIME 5 [facility] INC INC COLLECTIO 69163 [facility] KEEN N VENOUS 5 [facility] BLOOD INC INC VENIPUNCT URE COLLECTIO 38798 [facility] KEEN N VENOUS 5 [facility] BLOOD INC INC VENIPUNCT URE PROTHROMB 74653 [facility]SMANI KEEN IN TIME 5 [facility] INC INC PROTHROMB 55376 OSMANI KEEN IN TIME 5 [facility] INC INC COLLECTIO 16539 [facility] KEEN N VENOUS 5 [facility] BLOOD INC INC VENIPUNCT URE ECG 62724 [facility] CERVANTES ROUTINE 5 [facility] W/LEAST P 12 LDS I&R ONLY ECG 64519 OSM[facility] KEEN ROUTINE 5 [facility] ECG INC INC W/LEAST 12 LDS TRCG ONLY W/O I&R ECG 69218 [facility] CENTRAL ROUTINE 5 [facility] ECG HOSP HOSP W/LEAST 12 LDS TRCG ONLY W/O I&R BASIC 20883 [facility] METABOLIC 5 [facility] PANEL [place] [address] [facility] MAGNESIUM 5 [facility] [place] [address] [facility] PROSTATE 5 [facility] SPECIFIC [facility] ANTIGEN TOTAL PROTHROMB 54260 [facility] IN TIME 5 [facility] NATRIURET 58693 [facility] IC 5 [facility] PEPTIDE [facility] BLOOD 33967 [facility] COUNT 5 [facility] COMPLETE [facility] AUTOMATED DRUG 01138 [facility] SCREEN 5 [facility] QUANTITAT [facility] [place] DIGOXIN TOTAL ECG 99963 JAMEL OCHOA ROUTINE 5 HEART MAY ECG SPECIALIS W/LEAST TS, 12 LDS I&R ONLY LIPID 30085 [facility] PANEL 5 [facility] [place] [address] [facility] THYROID 5 [facility] STIMULATI [facility]OS[facility] NG HORMONE TSH URNLS DIP 21206 [facility] 5 [facility] STICK/TAB [facility] HOS[facility] LET RGNT AUTO W/O MICROSCOP Y COLLECTIO 96223 OSMANI KEEN N VENOUS 5 [facility] BLOOD INC INC VENIPUNCT URE PROTHROMB 21184 OSMANI KEEN IN TIME 5 [facility] INC INC BASIC 12386 OSMANI KEEN METABOLIC 5 [facility] PANEL INC INC CALCIUM TOTAL ECHO 48035 [facility] Medicine MAR 2D W/WOM-MOD E COMPL SPEC&COLR D COLLECTIO 05093 OSMANI KEEN N VENOUS 4 [facility] BLOOD INC INC VENIPUNCT URE PROTHROMB 46315 OSMANI KEEN IN TIME 4 [facility] INC INC PROTHROMB 77658 OSMANI OSMANI IN TIME 4 [facility] INC INC BASIC 80519 OSMANI KEEN METABOLIC 4 [facility] PANEL INC INC CALCIUM TOTAL PROTHROMB 90510 OSMANI OSMANI IN TIME 4 [facility] INC INC INTERROG 11657 [place] EVAL F2F 4 HEART MAY 1/DUAL/ML SPECIALIS T LEADS TS, IMPLTBL DFB PROTHROMB 21363 OSMANI KEEN IN TIME 4 [facility] INC BILIRUBIN 17953 OSMANI KEEN DIRECT 4 [facility] INC INC HEMOGLOBI 62117 OSMANI KEEN N 4 [facility] GLYCOSYLA INC INC PAUL A1C BLOOD 92249 OSMANI KEEN COUNT 4 [facility] COMPLETE INC INC AUTO&AUTO DIFRNTL WBC PROTHROMB 81254 OSMANI KEEN IN TIME 4 [facility] INC INC LIPID 19243 OSMANI KEEN PANEL 4 [place] [address] OSMANI KEEN FREE 4 [facility] [place] [address] OSMANI KEEN THYROID 4 [facility] STIMULATI INC INC NG HORMONE TSH COMPREHEN 63018 OSMANI KEEN SIVE 4 [facility] METABOLIC INC INC PANEL PULMONARY 44542 [facility] STRESS 4 [facility] SIMPLE PROTHROMB 13440 [facility] IN TIME 4 [facility] DRUG 12263 [facility] SCREEN 4 [facility] QUANTITAT [facility]OS[facility] [place] DIGOXIN TOTAL NATRIURET 76096 [facility] IC 4 [facility] PEPTIDE [facility]OSP BASIC 93263 [facility] METABOLIC 4 [facility] PANEL [facility] HOSP CALCIUM TOTAL PROTHROMB 31975 OSMANI KEEN IN TIME 4 [facility] INC INC PROTHROMB 02699 OSMANI KEEN IN TIME 4 [facility] INC INC PROTHROMB 83285 [facility] IN TIME 4 P[facility]ECOSTAL PENTEC[facility]AL HOSP HOSP NATRIURET 86310 [facility] IC 4 PENTECOSTAL [facility] PEPTIDE HOSP HOSP BASIC 09281 CENTRAL [facility] METABOLIC 4 PENTECOSTAL PENT[facility] PANEL HOSP HOSP CALCIUM TOTAL PROTHROMB 66473 OSMANI KEEN IN TIME 4 MEM HOSP [facility] 93641 [facility] DISCHARGE 4 AAR DAY CARDIOLOG MANAGEMEN Y AT CENT T 30 MIN/< RADIOLOGI 71462 [facility] [place] C EXAM 4 RADIOLOGY FELIPE CHEST 2 ASSOC VIEWS FRONTAL&L [facility] 10377 [facility] DISCHARGE 4 HEART MAY DAY SPECIALIS MANAGEMEN TS, T 30 MIN/< SBSQ 75255 [facility] 4 HEART MAY CARE/DAY SPECIALIS 25 TS, MINUTES ECG 20382 [facility] ROUTINE 4 HEART MAY ECG SPECIALIS W/LEAST TS, 12 LDS I&R ONLY RADIOLOGI 91897 [facility] RICE N. C EXAM 4 RADIOLOGY CHEST 2 ASSOC VIEWS FRONTAL&L ATERAL SBSQ 37374 [facility] 4 HEART MAY CARE/DAY SPECIALIS 25 TS, MINUTES SBSQ 69349 [facility] 4 HEART MAY CARE/DAY SPECIALIS 25 TS, MINUTES INSJ/RPLC 77428 [facility] MT PERM 4 AAR DFB CARDIOLOG W/TRNSVNS Y AT CENT LDS 1/DUAL CHMBR EPHYS 69009 [facility] EVAL PACG 4 AAR CVDFB CARDIOLOG LDS Y AT CENT W/TSTG OF PULSE GEN SBSQ 97079 [facility] 4 ORTH FABIANA CARE/DAY CARDIOLOG 25 Y AT CENT MINUTES RADIOLOGI 26250 CENTRAL CALLES C 4 RADIOLOGY III JAM EXAMINATI ASSOC ON CHEST SINGLE VIEW FRONTAL SBSQ 04240 [facility] 4 MEDICINE CARE/DAY SERVICES, 15 MINUTES SBSQ 42528 [facility] 4 ORTH FABIANA CARE/DAY CARDIOLOG 25 Y AT CENT MINUTES SBSQ 92063 [facility] 4 ORTH FABIANA CARE/DAY CARDIOLOG 25 Y AT CENT MINUTES ECG 49465 [facility] ROUTINE 4 HEART MAY ECG SPECIALIS W/LEAST TS, 12 LDS I&R ONLY GROUND A0425 [facility] EMS EMS MILE SBSQ 48291 [facility] 4 PULMONARY YUR CARE/DAY & 35 CRITICAL MINUTES ECG 55450 [facility] ROUTINE 4 HEART MAY ECG SPECIALIS W/LEAST TS, 12 LDS I&R ONLY RADIOLOGI 18655 [facility] [place] SCALF KLEVER C 4 RADIOLOGY EXAMINATI ON CHEST SINGLE VIEW FRONTAL INITIAL 87027 [facility] 4 HEART MAY CARE/DAY SPECIALIS 70 TS, MINUTES CRITICAL 25412 [facility] 4 ILL/INJUR ED PATIENT INIT 30-74 MIN AMB A[address] [facility] SERVICE 4 [facility] EMERGENCY EMS EMS TRANSPORT LEVEL 1 ECG 11775 [facility] ROUTINE 4 AAR ECG CARDIOLOG W/LEAST Y AT CENT 12 LDS W/I&R PROTHROMB 68827 OSMANI KEEN IN TIME 4 MEM HOSP MEM [facility] INC INC NON-INVAS 79197 NIHARIKA GARRISON VERONICA 4 CARDIOTHO NATI PHYSIOLOG RACIC IC STUDY SURGI EXTREMITY 3 LEVLS ECHO 77966 [facility] TTHRC R-T 4 HEART MAY 2D SPECIALIS W/WOM-MOD TS, E COMPL SPEC&COLR D ECG 84847 [facility] ROUTINE 4 HEART MAY ECG SPECIALIS W/LEAST TS, 12 LDS W/I&R PROTHROMB 39966 OSMANI KEEN IN TIME 4 MEM HOSP [facility] INC INC RADIOLOGI 55909 NIHARIKA Serrano EXAM 4 CARDIOTHO NATI CHEST 2 RACIC VIEWS SURGI FRONTAL&L ATERAL TOBACCO 68592 [facility] USE 4 P[facility]ECOSTAL [facility] H[facility]P INTERMEDI ATE 3-10 MINUTES NATRIURET 05-05-201 56981 [facility] IC 4 [facility]ECOSTAL [facility] PEPTIDE HOSP HOSP DRUG 51845 [facility] SCREEN 4 PENTECOSTAL [facility] QUANTITAT HOSP HOSP VERONICA DIGOXIN TOTAL BASIC 69377 [facility] METABOLIC 4 [facility]ECOSTAL [facility] PANEL HOSP HOSP CALCIUM TOTAL PROTHROMB 65056 [employer], IN TIME 4 DESIGN ENG DESIGN ENG [facility] CO HOS PROTHROMB 35992 [employer], IN TIME 4 DESIGN ENG DESIGN ENG [facility] CO HOS TRANSITIO 18073 [facility] MAYTE RASHEED [facility] CARE 4 HEART AND MANAGE VASCULAR SRVC 14 I DAY DISCHARGE PROTHROMB 06861 [employer], IN TIME 4 DESIGN ENG DESIGN ENG [facility] [address] [facility] MAGNESIUM 4 [facility]AL [facility]AL HOSP HOSP DRUG 27781 [facility] SCREEN 4 PENTECOSTAL P[facility]ECOSTAL QUANTITAT HOSP HOSP VERONICA DIGOXIN TOTAL NATRIURET 89718 [facility] IC 4 PENTECOSTAL [facility] PEPTIDE HOSP HOSP BLOOD 63264 [facility] COUNT 4 PENTECOSTAL PENTECOSTAL COMPLETE HOSP HOSP AUTOMATED BASIC 63273 [facility] METABOLIC 4 PENTECOSTAL [facility] PANEL HOSP HOSP CALCIUM TOTAL IIV3 82819 MANOLO MANOLO VACCINE 4 NUSRAT NUSRAT SPLIT VIRUS 0.5 ML DOSAGE IM USE PPSV23 95786 MANOLO MANOLO VACCINE 2 4 NUSRAT NUSRAT YRS OR OLDER FOR SUBQ/IM USE PROTHROMB 07229 [employer], IN TIME 4 DESIGN ENG DESIGN ENG [facility] CO HOS SBSQ 14661 [facility] 4 CARE/DAY INFECTIOU 25 S DISEASE MINUTES RADIOLOGI 46161 [facility] [place] C 4 RADIOLOGY FELIPE EXAMINATI ASSOC ON CHEST SINGLE VIEW FRONTAL RADIOLOGI 10927 [facility] C 4 RADIOLOGY EXAMINATI ASSOC ON CHEST SINGLE VIEW FRONTAL SBSQ 90220 PSYCHIATRIC 4 ASHTYN CARE/DAY CARDIOLOG 25 Y AT CENT MINUTES SBSQ 05902 PSYCHIATRIC 4 ASHTYN CARE/DAY CARDIOLOG 25 Y AT [facility] 58917 [facility] 4 HEART MAY DAY SPECIALIS MANAGEMEN TS, T 30 MIN/< SBSQ 42792 [facility] 4 CARE/DAY INFECTIOU 25 S DISEASE MINUTES SBSQ 44534 [facility] 4 HEART MAY CARE/DAY SPECIALIS 35 TS, MINUTES SBSQ 49471 [facility] 4 PULMONARY S MALA CARE/DAY & 25 CRITICAL MINUTES SBSQ 67154 [facility] 4 CARE/DAY INFECTIOU 25 S DISEASE MINUTES RADIOLOGI 04665 [facility] RICE N. C 4 RADIOLOGY EXAMINATI ASSOC ON CHEST SINGLE VIEW FRONTAL SBSQ 76942 [facility] 4 CARE/DAY INFECTIOU 25 S DISEASE MINUTES SBSQ 89359 [facility] 4 PULMONARY S MALA CARE/DAY & 35 CRITICAL MINUTES RADIOLOGI 81518 [facility] C 4 RADIOLOGY EXAMINATI ASSOC ON CHEST SING[place] VIEW FRONTAL SBSQ 90145 [facility] 4 CARE/DAY INFECTIOU 35 S DISEASE MINUTES SBSQ 61518 [facility] 4 PULMONARY ANAYA CARE/DAY & 35 CRITICAL MINUTES RADIOLOGI 61409 [facility] [place] C 4 RADIOLOGY FELIPE EXAMINATI ASSOC ON CHEST SINGLE VIEW FRONTAL SBSQ 36192 [facility] 4 IV HEN CARE/DAY CARDIOLOG 25 Y AT [facility] CRITICAL 65337 [facility] 4 YIN ILL/INJUR INFECTIOU ED S DISEASE PATIENT INIT 30-74 MIN RADEX 68554 VIRTUAL HERRERA SHE ABDOMEN 1 4 RADIOLOGI C ANTEROPOS PROFESSIO TERIOR VIEW CRITICAL [address] [facility] CARE 4 YIN ILL/INJUR INFECTIOU ED S DISEASE PATIENT INIT 30-74 MIN SBSQ 36887 [facility] 4 IV HEN CARE/DAY CARDIOLOG 25 Y AT CENT MINUTES RADIOLOGI 53105 [facility] [place] C 4 RADIOLOGY FELIPE EXAMINATI ASSOC ON CHEST SING[place] VIEW FRONTAL SBSQ 46974 [facility] 4 PULMONARY ANAYA CARE/DAY & 35 CRITICAL MINUTES SBSQ 45008 [facility] 4 HEART MAY CARE/DAY SPECIALIS 35 TS, MINUTES RADIOLOGI 41526 CENTRAL CALLES J C 4 RADIOLOGY EXAMINATI ASSOC ON CHEST SINGLE VIEW FRONTAL RADEX 64033 [facility] [place] ABDOMEN 1 4 RADIOLOGY FELIPE ASSOC ANTEROPOS TERIOR VIEW CRITICAL 44188 [facility] 4 YIN ILL/INJUR INFECTIOU ED S DISEASE PATIENT INIT 30-74 MIN CRITICAL 54299 [facility] 4 ILL/INJUR INFECTIOU ED S DISEASE PATIENT INIT 30-74 MIN SBSQ 19870 [facility] 4 HEART MAY CARE/DAY SPECIALIS 25 TS, MINUTES RADIOLOGI 74413 [facility] [place] C 4 RADIOLOGY FELIPE EXAMINATI ASSOC ON CHEST SINGLE VIEW FRONTAL SBSQ 30218 [facility] [place] 4 PULMONARY ANAYA CARE/DAY & 35 CRITICAL MINUTES SBSQ 55642 [facility] [place] 4 PULMONARY ANAYA CARE/DAY & 35 CRITICAL MINUTES RADIOLOGI 43883 [facility] R[facility] N. C 4 RADIOLOGY EXAMINATI ASSOC ON CHEST SINGLE VIEW FRONTAL CRITICAL 47263 [facility] 4 ILL/INJUR INFECTIOU ED S DISEASE PATIENT INIT 30-74 MIN RADIOLOGI 64829 [facility]AL SHULTZ ADA C 4 RADIOLOGY EXAMINATI ASSOC ON CHEST SINGLE VIEW FRONTAL SBSQ 51841 [facility] 4 CARE/DAY INFECTIOU 25 S DISEASE MINUTES (AORTO)CO 3611 [facility] 4 PENTECOSTAL [facility] BYPASS OF HOSP HOSP ONE CORONARY ARTERY OPEN & 3523 [facility] 4 PENTECOSTAL PENTECOSTAL REPLACEMN HOSP HOSP T MITRL VALVE W/TISSUE GRAFT SBSQ 93920 [facility] 4 HEART MAY CARE/DAY SPECIALIS 35 TS, MINUTES SBSQ 30064 [facility] 4 HEART MAY CARE/DAY SPECIALIS 35 TS, MINUTES SBSQ 04551 [facility] 4 CARE/DAY INFECTIOU 25 S DISEASE MINUTES SBSQ 81798 [facility] 4 Y THO CARE/DAY ASSOCIATE 15 S OF DAI MINUTES RADIOLOGI 18457 [facility]EN[facility]AL DIXON MAR C 4 RADIOLOGY EXAMINATI ASSOC ON CHEST SINGLE VIEW FRONTAL RADIOLOGI 59927 [facility] RICE N. C 4 RADIOLOGY EXAMINATI ASSOC ON CHEST SINGLE VIEW FRONTAL SBSQ 55812 [facility] 4 CARE/DAY INFECTIOU 25 S DISEASE MINUTES SBSQ 79661 [facility] 4 PULMONARY MAT CARE/DAY & 35 CRITICAL MINUTES ECG 97596 [facility] ROUTINE 4 HEART [facility] ECG SPECIALIS W/LEAST TS, 12 LDS I&R ONLY ECG 94441 [facility] ROUTINE 4 HEART MAY ECG SPECIALIS W/LEAST TS, 12 LDS I&R ONLY ECHO 61163 [facility] SHAYLA TRANSESOP 4 [facility] HAG R-T ANESTHESI 2D W/PRB A IMG ACQUISJ I&R DOP 99653 [facility] SHAYLA ECHOCARD 4 [facility] COLOR ANESTHESI FLOW A VELOCITY MAPPING SBSQ 03531 [facility] 4 PULMONARY MAT CARE/DAY & 35 [place] [address] [facility] 4 MARSHA & PATHOLOGY DUBILIER GROSS&YIN ROSCOPIC EXAM INSERTION 52883 [facility] SHAYLA FLOW 4 [facility] DIRECTED ANESTHESI CATHETER A FOR MONITORIN G DOPPLER 77725 [facility] SHAYLA ECHOCARD 4 [facility] PULSE ANESTHESI WAVE A W/SPECTRA L DISPLAY RADIOLOGI 65803 [facility] RICE N. C 4 RADIOLOGY EXAMINATI ASSOC ON CHEST SINGLE VIEW FRONTAL CRITICAL [address] [place] [address] PULMONARY NUSRAT ILL/INJUR & ED CRITICAL PATIENT INIT 30-74 MIN ANES HRT 33117 [facility] SHAYLA PERICRD 4 [place] SAC&GRT ANESTHESI VSLS A W/DIGITAL ACCOUNT SUPERVISOR OXTJ >1MO PO REPLACEME 66493 [facility] MELI NT MITRAL 4 CARDIOTHO NATI VALVE RACIC W/CARDIOP SURGI ULMONARY BYP NDSC SURG 39639 [facility] MELI 4 CARDIOTHO NATI W/VIDEO-A RACIC SSISTED SURGI HARVEST VEIN CABG CORONARY 36838 [facility] MELI ARTERY 4 CARDIOTHO NATI BYPASS 1 RACIC CORONARY SURGI VENOUS GRAFT SBSQ 92277 [facility] 4 Y SYE CARE/DAY ASSOCIATE 25 S OF DAI MINUTES ARTL 20557 [facility]TRAL CATHJ/CAN 4 [facility] NULJ ANESTHESI ANESTHESI MNTR/RENNER A A SFUSION SPX PRQ RPR BLOOD 59427 [facility] MELI VESSEL 4 CARDIOTHO NATI DIRECT RACIC LOWER SURGI EXTREMITY INITIAL 84893 [facility] 4 Y SYE CARE/DAY ASSOCIATE 70 S OF DAI MINUTES SBSQ 94832 [facility] 4 CARE/DAY INFECTIOU 25 S DISEASE MINUTES RADIOLOGI 13866 CENTRAL CALLES J C 4 RADIOLOGY EXAMINATI ASSOC ON CHEST SINGLE VIEW FRONTAL SBSQ 81048 [facility] 4 PULMONARY NUSRAT CARE/DAY & 35 CRITICAL MINUTES ECG 04703 ELY OCHOA ROUTINE 4 HEART MAY ECG SPECIALIS W/LEAST TS, 12 LDS I&R ONLY PRQ 30511 ELY [facility] TRLUML 4 HEART MAY CORONRY SPECIALIS TOT TS, OCCLUS REVASC MS ONE VSL INSERTION 3768 CEN[facility]AL [facility] PERQ 4 [facility]ECOSTAL [facility] EXTERNAL HOSP HOSP HEART ASSIST DEVICE CONT 9672 [facility] INVASIVE 4 [facility]ECOSTAL [facility]P 96 CONSECUTI VE HRS/MORE COMBINED 3723 CENTRAL [facility]AL RIGHT&LEF 4 PENTECOSTAL PENTECOSTAL T HEART HOSP HOSP CARD CATHETERI ZATION INSJ PERQ 74179 ELY OCHO[facility] VAD 4 HEART MAY W/IMAGING SPECIALIS ARTERY TS, ACCESS ONLY ENDOLUMIN 95437 [facility] AL 4 HEART MAY CORONARY SPECIALIS IVUS OCT TS, I&R INITIAL VESSEL R & L HRT 92494 ELY [facility] CATH 4 HEART MAY WINJX HRT SPECIALIS ART& L TS, VENTR IMG RADIOLOGI 63966 [facility] R[facility] N. C 4 RADIOLOGY EXAMINATI ASSOC ON CHEST SINGLE VIEW FRONTAL CRITICAL 51793 [facility] 4 PULMONARY MAT ILL/INJUR & ED CRITICAL PATIENT INIT 30-74 MIN ARTL 17277 PENT[facility] TRINY CATHJ/CAN 4 PULMONARY CELINA NULJ AND MNTR/RENNER CRITIC SFUSION SPX PRQ RADIOLOGI 28420 [facility] 4 KLEVER EXAMINATI RADIOLOGY ON CHEST ASSOCIAT SINGLE VIEW FRONTAL ECG 71308 SHEA PALENCIA PALENCIA SHEA ROUTINE 4 MD ECG CONSULTIN W/LEAST G SRV 12 LDS I&R ONLY COLLECTIO 43602 CARIDAD MCLEAN N VENOUS 4 [facility] VENIPUNCT URE BLOOD 97095 [facility] COUNT 4 [facility] AUTOMATED ECG 78899 [facility] 4 [facility] W/LEAST 12 LDS TRCG ONLY W/O I&R BASIC 37223 [facility] METABOLIC 4 [facility] CALCIUM TOTAL URINALYSI 53075 [facility], MHC INC, S 4 DESIGN ENG DESIGN ENG QUAL/SEMI [facility] BOONES QUANT CO HOS CO HOS EXCEPT IMMUNOASS AYS BLOOD 23563 [facility], MHC INC, COUNT 4 DESIGN ENG DESIGN ENG COMPLETE SOCORRO SOCORRO AUTO&AUTO CO HOS CO HOS DIFRNTL WBC LIPID 79635 [facility], MHC INC, PANEL 4 DESIGN ENG DESIGN ENG [place] [address] [facility], [facility], THYROID 4 DESIGN ENG DESIGN ENG STIMULATI [facility] BOONES NG [place] [address] [facility], [facility], FREE 4 DESIGN ENG DESIGN ENG THYROXINE [facility] HOS CO HOS COMPREHEN 99101 [employer], SIVE 4 DESIGN ENG DESIGN ENG METABOLIC [facility] QUINTANILLA PANEL CO HOS CO HOS DRUG SCR [id number] [employer], NOT 4 DESIGN ENG DESIGN ENG CHROMATOG [facility] QUINTANILLA RAPHIC; CO HOS CO HOS ANY NUMBER PT ENC RADIOLOGI 58721 [facility] C EXAM 4 EIDER DAVID CHEST 2 RADIOLOGY VIEWS ASSOCIAT FRONTAL&L ATERAL RADEX 74788 [employer], SPINE 4 DESIGN ENG DESIGN ENG LUMBOSACR [facility]RO QUINTANILLA AL CO HOS CO HOS MINIMUM 4 VIEWS Encounters Encounter Start End Date Code Location Performer Type Date HOSPITAL [facility] - 6 6 [facility] 6 [facility] OFF[facility] 09316 [facility] 6 PHYSICIAN T VISIT S GROUP 10 MINUTES [facility]ICE 00670 [facility] 6 PHYSICIAN T NEW 30 S GROUP MINUTES [facility] T OFFICE 49319 [facility] 6 6 [facility] T VISIT URGENT 15 TREAT MINUTES OFFICE 05772 [facility] 6 6 [facility] T VISIT URGENT 25 TREAT MINUTES OFFICE 37630 [facility] 6 6 [facility] T VISIT URGENT 25 TREAT MINUTES HOSPITAL OSMANI - 6 6 [facility] OFF[facility] 55392 JAMEL OCHO[facility] 6 6 HEART MAY T VISIT SPECIALIS 15 TS, MINUTES [facility]OSPITAL OSMANI - 6 6 [facility] OSMANI - 6 6 [facility] OSMANI - 6 6 [facility] OUTPATIEN INC T HOSPITAL OSMANI - 6 6 [facility] INC T HOSPITAL OSMANI - 6 6 [facility] OUTPATIEN INC T OFFICE 30679 JAMEL OCHOA OUTPAT[facility] 6 6 HEART MAY T VISIT SPECIALIS 25 TS, [facility] OSMANI - 6 6 [facility] OUTPATIEN INC T HOSPITAL OSMANI - 6 6 [facility] INC T HOSPITAL OSMANI - 6 6 [facility]PATIEN INC [facility]PITAL OSMANI - 6 6 [facility] INC [facility] OSMANI - 6 6 [facility] OUTPATIEN INC T OFFICE 94347 [facility] 6 6 [facility]ITY [facility] T VISIT URGENT 25 TREAT MINUTES [facility] OSMANI - 6 6 [facility] OUTPATIEN INC [facility]OSPITAL OSMANI - 5 5 [facility] OSMANI - 5 5 [facility] INC [facility] OSMANI - 5 5 [facility] OUTPATIEN INC T OFFICE 25977 JOSLYN CARDONA [facility] 5 5 MD DANIEL, T VISIT PSC 10 MINUTES [facility] OSMANI - 5 5 [facility] OUTPATIEN INC [facility]PITAL OSMANI - 5 5 [facility] OSMANI - 5 5 [facility] OSMANI - 5 5 [facility] OUTPATIEN INC T OFFICE 29356 NEIL KATE 5 5 T [facility] 30 MINUTES [facility] OSMANI - 5 5 [facility] OUTPATIEN INC HOSPITAL OSMANI - 5 5 [facility] HOSPITAL OSMANI - 5 5 [facility]PAT[facility] EMERGENCY 06066 OSMANI 5 5 [facility] VISIT LOW/MODER SEVERITY EMERGENCY 03587 DARREN BANKS, 5 5 JR RAJESH MENA [facility] VISIT HIGH/URGE NT SEVERITY HOSPITAL OSMANI - 5 5 [facility]PAT[facility] HOSPITAL OSMANI - 5 5 [facility] HOSPITAL OSMANI - 5 5 [facility]PAT[facility] OSMANI - 5 5 [facility] CENTRAL - 5 5 [facility] OUTPATIEN [facility] OFFICE 83761 [facility] 5 5 HEALTH T VISIT MEDICAL 25 GROUP [facility] OSMANI - 5 5 [facility] OUTPATIEN [facility] OSMANI - 4 4 [facility] OUTPAT[facility] OSMANI - 4 4 [facility] OUTPATIEN [facility] OSMANI - 4 4 [facility]PATIEN [facility] OFFICE 64208 PSYCHIATRIC 4 4 HEART MAY T VISIT SPECIAL 25 , [facility] OSMANI - 4 4 [facility]PATIEN [facility] HOSPITAL OSMANI - 4 4 [facility]PATI[facility] CENTRAL - 4 4 [facility] OUTPATIEN [facility] OSMANI - 4 4 MEM [facility] OUTPATIEN [facility] OSMANI - 4 4 [facility] OUTPATIEN [facility] CENTRAL - 4 4 [facility] OUTPATIEN HOSP OFFICE 03321 [facility]TE RASHEED OUTPATIEN 4 4 HEART AND T VISIT VASCULAR 25 I MINUTES HOSPITAL OSMANI - 4 4 [facility] 84[facility] EMERGENCY MAR VISIT PHYS PSC HIGH SEVERITY& THREAT FUNCJ OFFICE 89993 JAMEL BRIDGES OUTPATIEN 4 4 AAR T VISIT CARDIOLOG 25 Y AT CENT [facility] OSMANI - 4 4 [facility] 58561 JAMEL OCHOA OUTPATIEN 4 4 HEART MAY T VISIT SPECIALIS 25 TS, MINUTES [facility] OSMANI - 4 4 [facility] - 4 4 [facility] OUTPATIEN [facility] MHC INC, - 4 4 DESIGN ENG OUTPATIEN [facility] MHC INC, - 4 4 DESIGN ENG OUTPATIEN [facility] OFF[facility] 36358 [facility] SABAS OUTPATIEN 4 4 HEART AND TRA T VISIT VASCULAR 25 I MINUTES [facility] MHC INC, - 4 4 DESIGN ENG OUTPATIEN [facility] CENTRAL - 4 4 [facility] OUTPATIEN HOSP T OFFICE 60337 MANOLO FRENCH OUTPATIEN 4 4 NUSRAT NUSRAT T VISIT 15 MINUTES [facility] 4 4 DESIGN ENG OUTPATIEN [facility] - 4 4 [facility] [id number] MARY LOU BARRETO JR CONSULTAT 4 4 JOSE ANTONIO JOSE ANTONIO ION NEW/ESTAB PATIENT 60 MIN [facility] - 4 4 [facility] - 4 4 [facility] OFFICE [id number] MANOLO FRENCH [facility] 4 4 NUSRAT NORTON 30 MINUTES
--- OUTSIDE RECORDS SUMMARY | 2016-11-20 15:51 | External Medical Summary Rpt | CCD ---
Demographics Preferred Language Turkish Marital Status Unknown Confucianist Affiliation Unknown Race Unknown Ethnic Group Unknown Author Author , ARTIS WISDOM Address Unknown Phone Immunization No patient found.
--- OUTSIDE RECORDS SUMMARY | 2016-11-20 15:51 | External Medical Summary Rpt | CCD ---
Demographics Preferred Language Vietnamese Marital Status Unknown Worship Affiliation Unknown Race Unknown Ethnic Group Unknown Author Author , ARTIS WISDOM Address Unknown Phone Immunization No patient found.
--- OUTSIDE RECORDS SUMMARY | 2016-11-20 15:52 | External Medical Summary Rpt ---
Author Author [facility] [employer], [facility] [employer] Organization [facility] [employer] Address Unknown Phone Unavailable Results Digoxin [Mass/volume] in Serum or Plasma Observa Value Referen Units Interpr Notes Date tion ce etation Range Digoxin 1.15 - ng/mL Low No Oct 4 [Mass/vol 2.56 informati 2017 4:45 ume] in on in PM Serum or source Plasma data Natriutietic peptide B [Mass/volume] in Serum or Plasma Observa Value Referen Units Interpr Notes Date tion ce etation Range Natriutie 0 - 100 pg/mL High No Oct 4 tic informati 2016 4:45 peptide B on in PM source [Mass/vol data ume] in Serum or Plasma INR in Blood by Coagulation assay Observa Value Referen Units Interpr Notes Date tion ce etation Range IS PATIENT ON ANTICOAGULANTS? Y LIST ANTICOAGULANTS: WARFARIN PTT RESULTS MUST BE CALLED IF PT ON HEPARIN!!! Y INR in 0.9 - 1.1 No High INDICATIO Oct 4 Blood by informati N 2016 4:45 Coagulati on in PM on assay source INR data RANGETHER APY FOR DVT, PE, ATRIAL FIB; 2.0 - 3.0PROPHY LAXIS FOR VTETHERAP Y FOR MECHANICA L HEART 2.5 - 3.5VALVE; PREVENTIO N OF SYSTEMICE MBOLISM SECONDARY TO AMI Prothromb 9.4 - SECONDS High No Oct 4 in time 11.8 informati 2017 4:45 (PT) in on in PM Platelet source poor data plasma by Coagulati on assay Activated partial thrombplastin time (aPTT) in Platelet poor plasma by Coagulation assay Observa Value Referen Units Interpr Notes Date tion ce etation Range IS PATIENT ON ANTICOAGULANTS? Y LIST ANTICOAGULANTS: WARFARIN PTT RESULTS MUST BE CALLED IF PT ON HEPARIN!!! Y Activated 23.6 - SECONDS High RESULTS Nov 4 partial 34.0 CALLED TO 2017 4:45 thrombpla PM stin time PHARMACIS (aPTT) T: in 11/12/16 Platelet 1754 poor O'Arnold,Ka plasma by itlyn Coagulati on assay CBC W Auto Differential panel in Blood Observa Value Referen Units Interpr Notes Date tion ce etation Range Basophils 0 - 0.2 K/MM3 Normal No Nov 12 inform2016 4:45 [#/volume on in PM ] in source Blood by data Automated count Basophils 0.1 - 2.0 % Normal No Nov 12 / informati 2016 4:45 leukocyte on in PM s in source Blood by data Automated count Eosinophi 0.0 - 0.4 K/mm3 Normal No Nov 12 ls informati 2016 4:45 [#/volume on in PM ] in source Blood by data Automated count Eosinophi 0.1 - % Normal No Nov 12 ls/100 12.0 informati 2016 4:45 leukocyte on in PM s in source Blood by data Automated count Granulocy 1.3 - 8.0 K/mm3 Normal No Nov 12 jacqueline informati 2016 4:45 [#/volume on in PM ] in source Blood by data Automated count Granulocy 37.0 - % Normal No Nov 12 jacqueline/100 80.0 informati 2016 4:45 leukocyte on in PM s in source Blood by data Automated count Hematocri 42.0 - % Low No Nov 12 t [Volume 52.0 informati 2016 4:45 on in PM Fraction] source of Blood data Hemoglobi 14.1 - g/dL Low No Nov 12 n 18.0 informati 2016 4:45 [Mass/vol on in PM ume] in source Blood data Lymphocyt 0.7 - 4.5 K/mm3 Normal No Nov 12 es informati 2016 4:45 [#/volume on in PM ] in source Unspecifi data ed specimen by Automated count Lymphocyt 10 - 50 % Normal No Nov 12 es informati 2016 4:45 [#/volume on in PM ] in source Unspecifi data ed specimen by Automated count Erythrocy 27 - 31.2 pg High No Nov 12 te mean informati 2016 4:45 corpuscul on in PM ar source hemoglobi data n [Entitic mass] Erythrocy 31.8 - g/dl Normal No Nov 12 te mean 35.4 informati 2016 4:45 corpuscul on in PM ar source hemoglobi data n concentra tion [Mass/vol ume] by Automated count Erythrocy 82.2 - fl Normal No Nov 12 te mean 97.8 informati 2016 4:45 corpuscul on in PM ar volume source [Entitic data volume] by Automated count Monocytes 0.1 - 1.0 K/mm3 Normal No Nov 4 informati 2016 4:45 [#/volume on in PM ] in source Blood by data Automated count Monocytes 1.7 - 9.3 % High No Oct 4 /100 informati 2016 4:45 leukocyte on in PM s in source Blood by data Automated count Platelet 7.4 - fl Normal No Nov 12 mean 10.4 informati 2016 4:45 volume on in PM [Entitic source volume] data in Blood by Automated count Platelets 142 - 424 K/mm3 Normal No Nov 12 informati 2016 4:45 [#/volume on in PM ] in source Blood data Erythrocy 4.6 - 6.2 M/mm3 Low No Nov 12 jacqueline informati 2016 4:45 [#/volume on in PM ] in source Amniotic data fluid Erythrocy 11.5 - % Normal No Nov 12 te 17.5 informati 2016 4:45 distribut on in PM ion width source [Entitic data volume] by Automated count Leukocyte 4.8 - K/MM3 Normal No Nov 12 s 10.8 informati 2016 4:45 [#/volume on in PM ] in source Blood data INR in Blood by Coagulation assay Observa Value Referen Units Interpr Notes Date tion ce etation Range INR in 0.9 - 1.1 No High INDICATIO Sep 12 Blood by informati N 2016 3:49 Coagulati on in PM on assay source INR data RANGETHER APY FOR DVT, PE, ATRIAL FIB; 2.0 - 3.0PROPHY LAXIS FOR VTETHERAP Y FOR MECHANICA L HEART 2.5 - 3.5VALVE; PREVENTIO N OF SYSTEMICE MBOLISM SECONDARY TO AMI Prothromb 9.4 - SECONDS High No Sep 12 in time 11.8 informati 2016 3:49 (PT) in on in PM Platelet source poor data plasma by Coagulati on assay INR in Blood by Coagulation assay Observa Value Referen Units Interpr Notes Date tion ce etation Range INR in 0.9 - 1.1 No High INDICATIO Aug 7 Blood by informati N 2016 4:11 Coagulati on in PM on assay source INR data RANGETHER APY FOR DVT, PE, ATRIAL FIB; 2.0 - 3.0PROPHY LAXIS FOR VTETHERAP Y FOR MECHANICA L HEART 2.5 - 3.5VALVE; PREVENTIO N OF SYSTEMICE MBOLISM SECONDARY TO AMI Prothromb 9.4 - SECONDS High No Sep 7 in time 11.8 informati 2016 4:11 (PT) in on in PM Platelet source poor data plasma by Coagulati on assay INR in Blood by Coagulation assay Observa Value Referen Units Interpr Notes Date tion ce etation Range INR in 0.9 - 1.1 No High INDICATIO Aug 13 Blood by informati N 2016 Coagulati on in 10:10 AM on assay source INR data RANGETHER APY FOR DVT, PE, ATRIAL FIB; 2.0 - 3.0PROPHY LAXIS FOR VTETHERAP Y FOR MECHANICA L HEART 2.5 - 3.5VALVE; PREVENTIO N OF SYSTEMICE MBOLISM SECONDARY TO AMI Prothromb 9.4 - SECONDS High No Aug 13 in time 11.8 inform2016 (PT) in on in 10:10 AM Platelet source poor data plasma by Coagulati on assay INR in Blood by Coagulation assay Observa Value Referen Units Interpr Notes Date tion ce etation Range INR in 0.9 - 1.1 No High INDICATIO June 24 Blood by informati N 2016 2:18 Coagulati on in PM on assay source INR data RANGETHER APY FOR DVT, PE, ATRIAL FIB; 2.0 - 3.0PROPHY LAXIS FOR VTETHERAP Y FOR MECHANICA L HEART 2.5 - 3.5VALVE; PREVENTIO N OF SYSTEMICE MBOLISM SECONDARY TO AMI Prothromb 9.4 - SECONDS High No June 24 in time 11.8 informati 2016 2:18 (PT) in on in PM Platelet source poor data plasma by Coagulati on assay
== END 2016-11-12 20:47 | disposition short-term general hospital (02) ==
LOC: ER 16:39
PROVIDERS: Emergency Medicine
DX: R07.9 Chest pain, unspecified (principal); R00.2 Palpitations; Z79.82 Long term (current) use of aspirin; I25.10 Atherosclerotic heart disease of native coronary artery without angina pectoris; I10 Essential (primary) hypertension; F41.8 Other specified anxiety disorders; F17.210 Nicotine dependence, cigarettes, uncomplicated; R06.02 Shortness of breath